=== PATIENT | female | born 1930 | race Caucasian/White ===

== ENCOUNTER 2016-10-21 05:01 | Emergency (ER) | payer MEDICARE, OTHER ==
[~2016-10-21] VITALS: Ht 154.9 cm; Wt 60.0 kg
[~2016-10-21 05:01] MED LIST: ATEN-104 PO; BUME0.5T PO; CERTTAB6 PO; CIPR250T2 PO; CLIN150 PO; GEMF600T PO; LEVO50TA4 PO; LORTA5 PO; OMEP20TA39 PO; POTA-243 PO; SUCR1TAB PO; VITA100017 PO; VITA20002 PO
[2016-10-21 05:07] VITALS: BP 141/67; PULSE 70; RESP 18; TEMP 97.7; O2SAT 96
--- NOTE | 2016-10-21 05:19 | PD ---
HPI Chief Complaint: Fall Time Seen by Provider: 05:09 Travel History International Travel<30 days: No Contact w/Intl Traveler<30days: No Traveled to known affect area: No History of Present Illness HPI The patient was seen and examined in the presence of the nurse. This patient complains of right hip pain. Patient had a fall at home and landed on her right hip. She was not able to get up. Paramedics brought her in. She did not strike her head. He has no head or neck pain. Duration 1 hour. Symptoms severity is moderate. Leg pain is worse with movement. PFSH Past Medical History Arthritis: Yes Cancer: No Cardiovascular Problems: Yes (hx of htn) High Cholesterol: Yes Congestive Heart Failure: Yes Dementia: Yes Diminished Hearing: Yes Endocrine: Yes GERD: Yes Genitourinary: No Hypertension: Yes Immune Disorder: No Kidney Stones: Yes Musculoskeletal: Yes Neurologic: Yes (DEMENTIA) Psychiatric: No Reproductive: No Respiratory: No Thyroid Disease: Yes Ulcer: Yes ?: Not Menopausal: Yes Past Surgical History Other Surgery: Yes (right arm surgery) Social History Alcohol Use: Yes (occas. wine) Tobacco Use: No Substance Use: No Allergies-Medications (Allergen,Severity, Reaction): Coded Allergies: Exelon (Verified Allergy, Severe, stomach ulcers, 01/13/16) HMG-CoA Reductase Inhibitors (Verified Allergy, Intermediate, muscle pain , 01/13/16) Aspirin (Verified Adverse Reaction, Severe, bleeding ulcers, 01/13/16) Reported Meds & Prescriptions Reported Meds & Active Scripts Active Reported Certavite Senior/Antioxid (Multiple Vitamins W/ Minerals) 1 Tab Tab Omeprazole 40 Mg Cap 40 Mg PO DAILY Vitamin D3 (Cholecalciferol) 2,000 Unit Chew 2,000 Units CHEW DAILY Gemfibrozil 600 Mg Tab 600 Mg PO BIDAC Take 30 minutes prior to breakfast and dinner. Potassium Chloride ER (Potassium Chloride) 8 Meq Cap 8 Meq PO BID Effexor (Venlafaxine HCl) 37.5 Mg Tab 37.5 Mg PO Q12H Atenolol 100 Mg Tab 100 Mg PO DAILY Acetaminophen 325 Mg Tab 325 Mg PO Q4-6H PRN Tums E-X 750 (Calcium Carbonate (Antacid)) 750 Mg Chew 750 Mg CHEW PRN Tums (Calcium Carbonate (Antacid)) 500 Mg Chew 500 Mg CHEW PRN Levothyroxine (Levothyroxine Sodium) 75 Mcg Tab 75 Mcg PO DAILY Robitussin Cough & Cold D (Phenylephrine-Diphenhydramine-) 1 Mis Mis Bumex (Bumetanide) 2 Mg Tab 2 Mg PO BID Spironolactone 25 Mg Tab 2.5 Mg PO DAILY Lasix (Furosemide) 20 Mg Tab 20 Mg PO DAILY Review of Systems General / Constitutional: No: Fever Eyes: No: Visual changes HENT: No: Headaches Cardiovascular: No: Chest Pain or Discomfort Respiratory: No: Shortness of Breath Gastrointestinal: No: Abdominal Pain Genitourinary: No: Dysuria Musculoskeletal: Positive: Arthralgias, Limited ROM, Pain Skin: No Rash Neurologic: No: Weakness Psychiatric: No: Depression Endocrine: No: Polydipsia Hematologic/Lymphatic: No: Easy Bruising Physical Exam Narrative GENERAL: Well-nourished, well-developed patient in no apparent distress. SKIN: Focused skin assessment reveals no rash and nodules. Skin is Warm and dry. HEAD: Atraumatic. Normocephalic. EYES: Pupils equal and round. No scleral icterus. No injection or drainage. ENT: No nasal bleeding or discharge. Mucous membranes pink and moist. NECK: Trachea midline. No JVD. CARDIOVASCULAR: Regular rate and rhythm. No murmur appreciated. RESPIRATORY: No accessory muscle use. Clear to auscultation. Breath sounds equal bilaterally. GASTROINTESTINAL: Abdomen soft, non-tender, nondistended. Hepatic and splenic margins not palpable. MUSCULOSKELETAL: No obvious deformities. No clubbing. No cyanosis. No edema. Has pain with palpation of the right femur or movement of the right leg NEUROLOGICAL: Awake and alert. No obvious cranial nerve deficits. Motor grossly within normal limits. Normal speech. PSYCHIATRIC: Appropriate mood and affect; insight and judgment normal. Data Data Last Documented VS Vital Signs Date Time Temp Pulse Resp B/P Pulse Ox O2 Delivery O2 Flow Rate FiO2 10/21/16 05:07 97.7 70 18 141/67 96 Orders Chest, Single Ap (10/21/16 ) Pelvis, Ap Only (Routine) (10/21/16 ) Femur (Ap & Lat/2vws) (10/21/16 ) Iv Access Insert/Monitor (10/21/16 05:16) Complete Blood Count With Diff (10/21/16 05:16) Basic Metabolic Panel (Bmp) (10/21/16 05:16) Prothrombin Time / Inr (Pt) (10/21/16 05:16) Act Partial Throm Time (Ptt) (10/21/16 05:16) Labs Laboratory Tests Test 10/21/16 05:45 White Blood Count 32.1 TH/MM3 Red Blood Count 4.80 MIL/MM3 Hemoglobin 12.7 GM/DL Hematocrit 38.4 % Mean Corpuscular Volume 80.0 FL Mean Corpuscular Hemoglobin 26.4 PG Mean Corpuscular Hemoglobin 33.0 % Concent Red Cell Distribution Width 16.6 % Platelet Count 335 TH/MM3 Mean Platelet Volume 9.1 FL Neutrophils (%) (Auto) 30.3 % Lymphocytes (%) (Auto) 64.8 % Monocytes (%) (Auto) 3.7 % Eosinophils (%) (Auto) 0.9 % Basophils (%) (Auto) 0.3 % Neutrophils # (Auto) 9.7 TH/MM3 Lymphocytes # (Auto) 20.8 TH/MM3 Monocytes # (Auto) 1.2 TH/MM3 Eosinophils # (Auto) 0.3 TH/MM3 Basophils # (Auto) 0.1 TH/MM3 CBC Comment AUTO DIFF Prothrombin Time 12.0 SEC Prothromb Time International 1.1 RATIO Ratio Activated Partial 21.4 SEC Thromboplast Time MDM Medical Decision Making Medical Screen Exam Complete: Yes Emergency Medical Condition: Yes Medical Record Reviewed: Yes Differential Diagnosis Hip fracture, pelvis fracture, contusion Narrative Course I have reviewed the patient's electronic medical record. The last 6 lab draws have shown leukocytosis. Etiology of this is not entirely clear. She has normal vital signs. She is afebrile. She does have rheumatoid arthritis and possibly on steroids causing leukocytosis. She does not look septic or toxic. She has no other complaints than hip pain after falling on it. I evaluated the hip itself and there is no sign of infection there. No redness or warmth etc. IV placed CBC shows prominent leukocytosis Metabolic profile will be reviewed prior to discharge Coagulation studies are normal I reviewed her pelvis x-ray is negative for fracture I Reviewed her chest x-ray shows cardiomegaly without acute findings I reviewed her right femur x-ray which shows no fracture [facility] with [facility] physician. She had some mobilization here to bear weight. Diagnosis Primary Impression: Contusion of hip, right Additional Instructions: Follow-up with [facility] Med/Other Pt SpecificInfo: Other Disposition: 03 DISCHARGE TO SNF Condition: Stable Damian Ugalde MD Oct 21, 2016 05:19
[2016-10-21] MEDS ORDERED: VENL37.5 PO (05:21)
[2016-10-21] MEDS ORDERED: LEVO75TA3 PO (05:21)
[2016-10-21] MEDS ORDERED: OMEP40CA2 PO (05:21)
[2016-10-21] MEDS ORDERED: GEMF600T PO (05:21)
[2016-10-21] MEDS ORDERED: ACET325T PO (05:21)
[2016-10-21] MEDS ORDERED: ATEN100T PO (05:21)
[2016-10-21] MEDS ORDERED: CALC750C21 CHEW (05:21)
[2016-10-21] MEDS ORDERED: FURO1TAB62 PO (05:21)
[2016-10-21] MEDS ORDERED: CHOL1CHW5 CHEW (05:21)
[2016-10-21] MEDS ORDERED: CERTTAB6 PO (05:21)
[2016-10-21] MEDS ORDERED: POTA8CAP PO (05:21)
[2016-10-21] MEDS ORDERED: ROBIMIS (05:21)
[2016-10-21] MEDS ORDERED: SPIR25TA PO (05:21)
[2016-10-21] MEDS ORDERED: BUME1TAB28 PO (05:21)
[2016-10-21] MEDS ORDERED: TUMS500C CHEW (05:21)
[2016-10-21 06:14] LABS: AUTOMATED NEUTROPHIL # 9.7 TH/MM3 (1.8-7.7); BASOPHIL # 0.1 TH/MM3 (0-0.2); BASOPHIL % 0.3 % (0.0-2.0); EOSINOPHIL # 0.3 TH/MM3 (0-0.4); EOSINOPHIL % 0.9 % (0.0-4.0); HEMATOCRIT 38.4 % (35.0-46.0); LYMPH % 64.8 % (9.0-44.0); LYMPHOCYTE # 20.8 TH/MM3 (1.0-4.8); MEAN CORPUSCULAR HEMOGLOBIN 26.4 PG (27.0-34.0); MONO % 3.7 % (0.0-8.0); NEUT % 30.3 % (16.0-70.0); PLATELET COUNT 335 TH/MM3 (150-450); RED CELL DISTRIBUTION WIDTH 16.6 % (11.6-17.2); WHITE BLOOD COUNT 32.1 TH/MM3 (4.0-11.0)
[2016-10-21 06:25] LABS: APTT (PATIENT) 21.4 SEC (24.3-30.1); INTERNATIONAL NORMALIZED RATIO 1.1 RATIO
--- NOTE | 2016-10-21 06:28 | RADRPT ---
EXAM DATE/TIME: 10/21/2016 06:08 [facility] COMPARISON: No previous studies available for comparison. INDICATIONS : Fall. Right pelvic pain. MEDICAL HISTORY : None. SURGICAL HISTORY : None. ENCOUNTER: Initial ACUITY: 1 day PAIN SCORE: 7/10 LOCATION: Right pelvis FINDINGS: A single frontal view of the pelvis demonstrates no evidence of fracture. The bony pelvic ring is in tact. Bony mineralization is reduced. 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 A scol iotic and degenerative lumbar spine is partially seen. The soft tissues are intact. CONCLUSION: No acute disease. Luis Holcomb Jr., MD on October 21, 2016 at 6:26 Board Certified Radiologist. This report was verified electronically.
--- NOTE | 2016-10-21 06:30 | RADRPT ---
EXAM DATE/TIME: 10/21/2016 06:10 [facility] COMPARISON: No previous studies available for comparison. INDICATIONS : Fall. Right femur pain. MEDICAL HISTORY : None. SURGICAL HISTORY : None. ENCOUNTER: Initial ACUITY: 1 day PAIN SCORE: 7/10 LOCATION: Right lateral FINDINGS: Two view examination of the right femur demonstrates no evidence of fracture or dislocation. Bony mi neralization is reduced. 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 Atherosclerotic changes of the SFA and popliteal artery. The soft tissue structures are intact. CONCLUSION: No acute disease. Luis Holcomb Jr., MD on October 21, 2016 at 6:27 Board Certified Radiologist. This report was verified electronically.
--- NOTE | 2016-10-21 06:30 | RADRPT ---
EXAM DATE/TIME: 10/21/2016 06:08 [facility] COMPARISON: CHEST SINGLE AP, January 13, 2016, 4:17. INDICATIONS : Fall. Right side pain. MEDICAL HISTORY : None. SURGICAL HISTORY : None. ENCOUNTER: Initial ACUITY: 1 day PAIN SCORE: 5/10 LOCATION: Bilateral chest FINDINGS: A single view of the chest demonstrates the lungs to be symmetrically aerated without evidence of mas s, infiltrate or effusion. Mild cardiomegaly. Osseous structures are intact. CONCLUSION: Mild cardiomegaly. No acute abnormality. Luis Holcomb Jr., MD on October 21, 2016 at 6:28 Board Certified Radiologist. This report was verified electronically.
[2016-10-21 06:42] LABS: HEMO FLAGS AUTO DIFF
[2016-10-21 06:57] LABS: BICARBONATE 22.3 MEQ/L (21.0-32.0)
[2016-10-21 07:47] LABS: BANDS 1 % (0-6); EOSINOPHILS 1 % (0-4); MYELOCYTES 2 % (0-0); NEUTROPHIL # MANUAL DIFF 7.7 TH/MM3 (1.8-7.7); POLYS (SEG NEUTROPHILS) 21 % (16-70); SMUDGE CELLS PRESENT PRESENT; WBC DIFF SAMPLE 100
[2016-10-21 07:48] LABS: SCAN/DIFF FINAL DIFF MANUAL
[2016-10-21 07:49] LABS: PLATELET ESTIMATE SMEAR NORMAL (NORMAL); PLATELET MORPHOLOGY NORMAL (NORMAL)
== END 2016-10-21 10:11 ==
LOC: NEPE 05:01
DX: S70.01XA Contusion of right hip, initial encounter (principal); W19.XXXA Unspecified fall, initial encounter; Y92.009 Unspecified place in unspecified non-institutional (private) residence as the place of occurrence of the external cause
CPT/HCPCS: 71010; 72170; 73552; 80048; 85007; 85027; 85610; 85730; 99284

== ENCOUNTER 2016-11-30 19:50 | Emergency (ER) | payer MEDICARE ==
[~2016-11-30] VITALS: Ht 157.5 cm; Wt 98.0 kg
[~2016-11-30 19:50] MED LIST changes: +ACET325T PO; -ATEN-104 PO; +ATEN100T PO; -BUME0.5T PO; +BUME1TAB28 PO; +CALC750C21 CHEW; +CHOL1CHW5 CHEW; -CIPR250T2 PO; -CLIN150 PO; +FURO1TAB62 PO; -LEVO50TA4 PO; +LEVO75TA3 PO; -LORTA5 PO; -OMEP20TA39 PO; +OMEP40CA2 PO; -POTA-243 PO; +POTA8CAP PO; +ROBIMIS; +SPIR25TA PO; -SUCR1TAB PO; +TUMS500C CHEW; +VENL37.5 PO; -VITA100017 PO; -VITA20002 PO
[2016-11-30 19:54] VITALS: BP 130/81; PULSE 69; RESP 16; TEMP 97.6; O2SAT 94
--- NOTE | 2016-11-30 20:15 | PD ---
HPI Chief Complaint: Fall Time Seen by Provider: 20:00 Travel History International Travel<30 days: No Contact w/Intl Traveler<30days: No Traveled to known affect area: No History of Present Illness HPI 86-year-old female complains of headache, neck pain, extremity pain. Patient fell [facility] local [facility] this [facility]. No reported loss of consciousness. Patient complains of generalized headache, neck pain, extremity pain. Patient denies any chest pain or shortness of breath. Patient denies abdominal pain. Patient denies any focal weakness and numbness of extremity. Patient denies any nausea vomiting. PFSH Past Medical History Arthritis: Yes Depression: Yes Cancer: No Cardiovascular Problems: Yes (hx of htn,PVD) High Cholesterol: Yes Congestive Heart Failure: Yes Dementia: Yes Diminished Hearing: Yes Endocrine: Yes GERD: Yes Genitourinary: No Hypertension: Yes Immune Disorder: No Kidney Stones: Yes Musculoskeletal: Yes Neurologic: Yes (DEMENTIA) Psychiatric: No Reproductive: No Respiratory: No Immunizations Current: Yes Thyroid Disease: Yes Ulcer: Yes Tetanus Vaccination: > 5 Years Influenza Vaccination: Yes ?: Not Menopausal: Yes Past Surgical History Other Surgery: Yes (right arm surgery) Social History Alcohol Use: Yes (occas. wine) Tobacco Use: No Substance Use: No Allergies-Medications (Allergen,Severity, Reaction): Coded Allergies: Exelon (Verified Allergy, Severe, stomach ulcers, 11/30/16) HMG-CoA Reductase Inhibitors (Verified Allergy, Intermediate, muscle pain , 11/30/16) Aspirin (Verified Adverse Reaction, Severe, bleeding ulcers, 11/30/16) Reported Meds & Prescriptions Reported Meds & Active Scripts Active Reported Zinc Oxide (Zinc Oxide (Topical)) 20 % Oin Unknown Dose TOPICAL BID PRN Vitamin D3 (Cholecalciferol) 2,000 Unit Cap 2,000 Units PO DAILY Robitussin Peak Cold Dm 100-10 mg/5Ml (Dextromethorphan-Guaifenesin) 1 Syp Syp 5 Ml PO Q4HR PRN Potassium Chloride ER (Potassium Chloride) 10 Meq Cap 10 Meq PO BID Lasix (Furosemide) 40 Mg Tab 40 Mg PO DAILY Imodium A-D (Loperamide HCl) 2 Mg Capsule 2 Mg PO DIRECTED PRN One capsule after each loose stool. Not to exceed 8 tablets per day. Bumetanide 2 Mg Tab 2 Mg PO BID Tylenol (Acetaminophen) 325 Mg Tab 650 Mg PO Q12HR PRN Certavite Senior/Antioxid (Multiple Vitamins W/ Minerals) 1 Tab Tab 1 Tab PO DAILY Omeprazole 40 Mg Cap 40 Mg PO DAILY Gemfibrozil 600 Mg Tab 600 Mg PO BIDAC Take 30 minutes prior to breakfast and dinner. Effexor (Venlafaxine HCl) 37.5 Mg Tab 37.5 Mg PO Q12H Atenolol 100 Mg Tab 100 Mg PO DAILY Tums E-X 750 (Calcium Carbonate (Antacid)) 750 Mg Chew 750 Mg CHEW PRN Levothyroxine (Levothyroxine Sodium) 75 Mcg Tab 75 Mcg PO DAILY Spironolactone 25 Mg Tab 12.5 Mg PO DAILY Review of Systems General / Constitutional: No: Fever Eyes: No: Visual changes HENT: Positive: Headaches, Neck Pain Cardiovascular: No: Chest Pain or Discomfort Respiratory: No: Shortness of Breath Gastrointestinal: No: Abdominal Pain Genitourinary: No: Dysuria Musculoskeletal: Positive: Pain Skin: No Rash Neurologic: No: Weakness Psychiatric: No: Depression Endocrine: No: Polydipsia Hematologic/Lymphatic: No: Easy Bruising Physical Exam Narrative GENERAL: Well-nourished, well-developed patient. SKIN: Focused skin assessment warm/dry. HEAD: Normocephalic. EYES: No scleral icterus. No injection or drainage. Right pupil 3 mm left pupil 1.5 mm. NECK: Supple, trachea midline. No JVD or lymphadenopathy. Mild to moderate tenderness paraspinal areas cervical spine. No midline tenderness. CARDIOVASCULAR: Regular rate and rhythm without murmurs, gallops, or rubs. RESPIRATORY: Breath sounds equal bilaterally. No accessory muscle use. GASTROINTESTINAL: Abdomen soft, non-tender, nondistended. MUSCULOSKELETAL: No cyanosis, or edema. Patient had diffuse tenderness over the bilateral hip area thigh area leg area. Limited range of motion of bilateral hips and knees joints. BACK: Nontender without obvious deformity. No CVA tenderness. Neurologic exam: Patient awake alert oriented 3. No obvious focal neurological deficit. Data Data Last Documented VS Vital Signs Date Time Temp Pulse Resp B/P Pulse Ox O2 Delivery O2 Flow Rate FiO2 11/30/16 21:22 67 18 136/60 95 Room Air 11/30/16 19:[address] Brain W/O Iv Contrast(Rout) (11/30/16 20:06) Ct Cerv Spine W/O Contrast (11/30/16 20:06) Femur (Ap & Lat/2vws) (11/30/16 20:06) Tibia/Fibula (Ap/Lat) (11/30/16 20:06) Chest, Single Ap (11/30/16 20:06) Pelvis, Ap Only (Routine) (11/30/16 20:06) Femur (Ap & Lat/2vws) (11/30/16 20:06) Tibia/Fibula (Ap/Lat) (11/30/16 20:06) MDM Medical Decision Making Medical Screen Exam Complete: Yes Emergency Medical Condition: Yes Interpretation(s) Last Impressions Tibia/Fibula X-Ray 11/30/162005 Signed Impressions: Service Date/Time: Wednesday, November 30, 2016 20:35 - CONCLUSION: No acute disease. Luis Holcomb Jr., MD Tibia/Fibula X-Ray 11/30/162005 Signed Impressions: Service Date/Time: Wednesday, November 30, 2016 20:33 - CONCLUSION: No acute disease. Luis Holcomb Jr., MD Pelvis X-Ray 11/30/162005 Signed Impressions: Service Date/Time: Wednesday, November 30, 2016 20:24 - CONCLUSION: No acute disease. Luis Holcomb Jr., MD Head CT 11/30/162005 Signed Impressions: Service Date/Time: Wednesday, November 30, 2016 20:45 - CONCLUSION: 1. No acute intracranial abnormality. 2. Stable pituitary mass. 3. Stable calcified meningioma involving the posterior cranial fossa. Luis Holcomb Jr., MD Femur X-Ray 11/30/162005 Signed Impressions: Service Date/Time: Wednesday, November 30, 2016 20:27 - CONCLUSION: No acute disease. Luis Holcomb Jr., MD Chest X-Ray 11/30/162005 Signed Impressions: Service Date/Time: Wednesday, November 30, 2016 20:31 - CONCLUSION: Cardiomegaly. Luis Holcomb Jr., MD Cervical Spine CT 11/30/162005 Signed Impressions: Service Date/Time: Wednesday, November 30, 2016 20:47 - CONCLUSION: 1. No fracture or dislocation. 2. Advanced diffuse degenerative changes. Luis Holcomb Jr., MD Differential Diagnosis Differential diagnosis including closed head injury, intracranial hemorrhage, neck injury, extremity injury. Narrative Course 86-year-old female, complains of headache, neck pain, low extremity pain. Status post fall. Diagnosis Primary Impression: Closed head injury Qualified Code: S09.90XA - Closed head injury, initial encounter Additional Impressions: Cervical strain Qualified Code: S16.1XXA - Cervical strain, initial encounter Multiple contusions Patient Instructions: General Instructions Additional Instructions: Head trauma instructions given. Follow-up with personal physician. Return as needed. Follow-up with orthopedist if persistent problem. Med/Other Pt SpecificInfo: No Change to Meds Disposition: 01 DISCHARGE HOME Condition: Stable Ta Pinto MD Nov 30, 2016 20:15
[2016-11-30] MEDS ORDERED: POTA10CA PO (20:19)
[2016-11-30] MEDS ORDERED: TYLE325T PO (20:19)
[2016-11-30] MEDS ORDERED: VITA2000 PO (20:19)
[2016-11-30] MEDS ORDERED: ZINC20OI TOPICAL (20:19)
[2016-11-30] MEDS ORDERED: LOPE-1 PO (20:19)
[2016-11-30] MEDS ORDERED: BUME2TAB PO (20:19)
[2016-11-30] MEDS ORDERED: FURO1TAB60 PO (20:19)
[2016-11-30] MEDS ORDERED: ROBISYP8 PO (20:19)
--- NOTE | 2016-11-30 21:04 | RADRPT ---
EXAM DATE/TIME: 11/30/2016 20:45 [facility] COMPARISON: CT BRAIN W/O CONTRAST, January 15, 2016, 9:41. INDICATIONS : Trauma. Fall. RADIATION DOSE: 56.35 CTDIvol (mGy) MEDICAL HISTORY : Cardiovascular disease. Dementia. Hypertension.GERD SURGICAL HISTORY : None. ENCOUNTER: Initial ACUITY: 1 day PAIN SCALE: 9/10 LOCATION: cranial TECHNIQUE: Multiple contiguous axial images were obtained of the head. Using automated exposure control and adj ustment of the mA and/or kV according to patient size, radiation dose was kept as low as reasonably a chievable to obtain optimal diagnostic quality images. FINDINGS: No acute intracranial abnormality is observed. No hemorrhage or infarction. The suprasellar mass is a gain seen consistent with an enlarged pituitary gland. This is stable. A calcified mass is seen invol ving the tentorium consistent with a meningioma. No mass effect. The calvarium is intact. Hyperostosi s frontalis interna noted. CONCLUSION: 1. No acute intracranial abnormality. 2. Stable pituitary mass. 3. Stable calcified meningioma involving the posterior cranial fossa. Luis Holcomb Jr., MD on November 30, 2016 at 21:00 Board Certified Radiologist. This report was verified electronically.
--- NOTE | 2016-11-30 21:08 | RADRPT ---
EXAM DATE/TIME: 11/30/2016 20:47 [facility] COMPARISON: CT CERVICAL SPINE W/O CONTRAST, January 13, 2016, 2:00. INDICATIONS : Trauma. Fall. RADIATION DOSE: 33.94 CTDIvol (mGy) MEDICAL HISTORY : Cardiovascular disease. Dementia. Hypertension.GERD SURGICAL HISTORY : None. ENCOUNTER: Initial ACUITY: 1 day PAIN SCALE: 9/10 LOCATION: neck TECHNIQUE: Volumetric scanning of the cervical spine was performed. Multiplanar reconstructions in the sagittal, coronal and oblique axial planes were performed. Using automated exposure control and adjustment o f the mA and/or kV according to patient size, radiation dose was kept as low as reasonably achievable to obtain optimal diagnostic quality images. FINDINGS: VERTEBRAE: Normal vertebral body height. ALIGNMENT: There is a curvature with concavity towards the patient's right which is stable from the prior study. Loss of the natural lordosis. Grade 1 anterolisthesis of C6 on C7 and C7 on T1. This is all stable. C2-C3: Disc space narrowing. No disc bulge or protrusion. Central canal is patent. Neural foramina are paten t. C3-C4: There is disc space narrowing with disc osteophyte complex. No central canal stenosis. Bilateral neur al foraminal narrowing. C4-C5: Broad-based disc osteophyte complex. Eccentric to the left. Narrowing the lateral recesses bilaterall y. Bilateral neural foraminal narrowing. C5-C6: Broad-based disc osteophyte complex. Eccentric to the left. Narrowing the lateral recesses bilaterall y. Bilateral neural foraminal narrowing. C6-C7: Broad-based disc osteophyte complex. Narrowing the lateral recesses bilaterally. Bilateral neural for aminal narrowing. C7-T1: The bony spinal canal is normal in size. No evidence of disc bulge or herniation. The neural forami na are bilaterally patent. CONCLUSION: 1. No fracture or dislocation. 2. Advanced diffuse degenerative changes. Luis Holcomb Jr., MD on November 30, 2016 at 21:03 Board Certified Radiologist. This report was verified electronically.
--- NOTE | 2016-11-30 21:10 | RADRPT ---
EXAM DATE/TIME: 11/30/2016 20:31 [facility] COMPARISON: CHEST SINGLE AP, October 21, 2016, 6:08. INDICATIONS : Chest pain post fall today MEDICAL HISTORY : None. SURGICAL HISTORY : None. ENCOUNTER: Initial ACUITY: 1 day PAIN SCORE: 10/10 LOCATION: Bilateral chest FINDINGS: A single view of the chest demonstrates the lungs to be symmetrically aerated without evidence of mas s, infiltrate or effusion. Moderate cardiomegaly. Osseous structures are intact. CONCLUSION: Cardiomegaly. Luis Holcomb Jr., MD on November 30, 2016 at 21:07 Board Certified Radiologist. This report was verified electronically.
--- NOTE | 2016-11-30 21:12 | RADRPT ---
EXAM DATE/TIME: 11/30/2016 20:24 [facility] COMPARISON: PELVIS AP ONLY, October 21, 2016, 6:08. INDICATIONS : Pelvic pain post fall today MEDICAL HISTORY : None. SURGICAL HISTORY : None. ENCOUNTER: Initial ACUITY: 1 day PAIN SCORE: 10/10 LOCATION: Pelvis FINDINGS: A single frontal view of the pelvis demonstrates no evidence of fracture. The bony pelvic ring is in tact. Bony mineralization is reduced. The soft tissues are intact. CONCLUSION: No acute disease. Luis Holcomb Jr., MD on November 30, 2016 at 21:10 Board Certified Radiologist. This report was verified electronically.
--- NOTE | 2016-11-30 21:13 | RADRPT ---
EXAM DATE/TIME: 11/30/2016 20:35 [facility] COMPARISON: No previous studies available for comparison. INDICATIONS : Right lower leg pain post fall today MEDICAL HISTORY : None. SURGICAL HISTORY : None. ENCOUNTER: Initial ACUITY: 1 day PAIN SCORE: 10/10 LOCATION: Right entire lower leg FINDINGS: 3 views of the right lower leg reveal an old fracture involving the distal tibia. No acute fractures seen. Diffuse osteopenia. Soft tissues are unremarkable. Degenerative changes involving the knee. CONCLUSION: No acute disease. Luis Holcomb Jr., MD on November 30, 2016 at 21:10 Board Certified Radiologist. This report was verified electronically.
--- NOTE | 2016-11-30 21:14 | RADRPT ---
EXAM DATE/TIME: 11/30/2016 20:27 [facility] COMPARISON: FEMUR RIGHT (AP & LAT/2VWS), October 21, 2016, 6:10. INDICATIONS : Right femur pain post fall today MEDICAL HISTORY : None. SURGICAL HISTORY : None. ENCOUNTER: Initial ACUITY: 1 day PAIN SCORE: 10/10 LOCATION: Right entire femur FINDINGS: Two view examination of the right femur demonstrates no evidence of fracture or dislocation. Bony mi neralization is reduced. Degenerative changes involve the hip and knee. Popliteal artery calcificati ons. The soft tissue structures are intact. CONCLUSION: No acute disease. Luis Holcomb Jr., MD on November 30, 2016 at 21:11 Board Certified Radiologist. This report was verified electronically.
--- NOTE | 2016-11-30 21:15 | RADRPT ---
EXAM DATE/TIME: 11/30/2016 20:33 [facility] COMPARISON: No previous studies available for comparison. INDICATIONS : Left lower leg pain post fall today MEDICAL HISTORY : None. SURGICAL HISTORY : None. ENCOUNTER: Initial ACUITY: 1 day PAIN SCORE: 10/10 LOCATION: Left entire lower leg FINDINGS: Two view examination of the left tibia demonstrates no evidence of fracture or dislocation. Bony min eralization is reduced. The soft tissue structures are intact. CONCLUSION: No acute disease. Luis Holcomb Jr., MD on November 30, 2016 at 21:12 Board Certified Radiologist. This report was verified electronically.
[2016-11-30 21:22] VITALS: BP 136/60; PULSE 67; RESP 18; O2SAT 95
--- NOTE | 2016-11-30 21:27 | RADRPT ---
EXAM DATE/TIME: 11/30/2016 20:25 [facility] COMPARISON: No previous studies available for comparison. INDICATIONS : Left femur pain post fall today MEDICAL HISTORY : None. SURGICAL HISTORY : None. ENCOUNTER: Initial ACUITY: 1 day PAIN SCORE: 10/10 LOCATION: Left entire femur FINDINGS: Two view examination of the left femur demonstrates no evidence of fracture or dislocation. Bony min eralization is normal. The soft tissue structures are intact. CONCLUSION: No acute disease. Luis Holcomb Jr., MD on November 30, 2016 at 21:25 Board Certified Radiologist. This report was verified electronically.
[2016-11-30 21:53] VITALS: BP 116/57; PULSE 65; RESP 20; O2SAT 97
== END 2016-11-30 23:42 | disposition home or self-care (01) ==
LOC: NEPE 19:50
DX: S09.90XA Unspecified injury of head, initial encounter (principal); S16.1XXA Strain of muscle, fascia and tendon at neck level, initial encounter; M79.661 Pain in right lower leg; M79.662 Pain in left lower leg; M79.651 Pain in right thigh; M79.652 Pain in left thigh; R07.9 Chest pain, unspecified; R10.2 Pelvic and perineal pain; W19.XXXA Unspecified fall, initial encounter; Y92.129 Unspecified place in nursing home as the place of occurrence of the external cause
CPT/HCPCS: 70450; 71010; 72125; 72170; 73552; 73590

== ENCOUNTER 2017-04-21 00:49 | Inpatient (IN) | payer MEDICARE ==
[2017-04-21] VITALS (8 sets, daily range): BP systolic 95–152; BP diastolic 46–69; PULSE 64–88; RESP 16–20; TEMP 97.2–98.2; O2SAT 94–100
[~2017-04-21 00:49] MED LIST changes: -ACET325T PO; -BUME1TAB28 PO; +BUME2TAB PO; -CHOL1CHW5 CHEW; +FURO1TAB60 PO; -FURO1TAB62 PO; +LOPE-1 PO; +POTA10CA PO; -POTA8CAP PO; -ROBIMIS; +ROBISYP8 PO; -TUMS500C CHEW; +TYLE325T PO; +VITA2000 PO; +ZINC20OI TOPICAL
[2017-04-21] MEDS ORDERED: SODIUM CHLORIDE 0.9% FLUSH 10 ML FLUSH IVF PRN (01:15)
--- NOTE | 2017-04-21 01:15 | PD ---
HPI Chief Complaint: Fall Time Seen by Provider: 04:02 Travel History International Travel<30 days: No Contact w/Intl Traveler<30days: No Traveled to known affect area: No History of Present Illness HPI 86-year-old female with dementia sent from [facility] after a non-witnessed fall. Nursing staff at facility reported possible head injury unknown loss of consciousness. Patient reportedly complained of headache neck pain back pain leg pain chest pain abdominal pain. Patient reportedly has chronic pain syndrome. Patient here reports that she hurts everywhere. No reported recent febrile illness. Patient with history of dementia, CAD, hypertension, peripheral vascular disease, CHF, chronic pain syndrome, Caleb/suprasellar mass, meningioma, leukocytosis, dyslipidemia, and hypothyroidism. PFSH Past Medical History Narrative Medical dementia, CAD, hypertension, peripheral vascular disease, CHF, chronic pain syndrome, Caleb/suprasellar mass, meningioma, leukocytosis, dyslipidemia, and hypothyroidism; nursing notes reviewed Arthritis: Yes Depression: Yes Cancer: No Cardiovascular Problems: Yes (hx of htn,PVD) High Cholesterol: Yes Congestive Heart Failure: Yes Dementia: Yes Diminished Hearing: Yes Endocrine: Yes GERD: Yes Genitourinary: No Hypertension: Yes Immune Disorder: No Kidney Stones: Yes Musculoskeletal: Yes Neurologic: Yes (DEMENTIA) Psychiatric: No Reproductive: No Respiratory: No Immunizations Current: Yes Thyroid Disease: Yes Ulcer: Yes Tetanus Vaccination: Unknown Influenza Vaccination: No Menopausal: Yes Past Surgical History Other Surgery: Yes (right arm surgery) Social History Alcohol Use: Yes (occas. wine) Tobacco Use: No Substance Use: No Allergies-Medications (Allergen,Severity, Reaction): Coded Allergies: rivastigmine (Unverified Allergy, Severe, stomach ulcers, 04/21/17) amlodipine (Unverified Allergy, Intermediate, muscle pain, 04/21/17) atorvastatin (Unverified Allergy, Intermediate, muscle pain, 04/21/17) pravastatin (Unverified Allergy, Intermediate, muscle pain, 04/21/17) simvastatin (Unverified Allergy, Intermediate, muscle pain, 04/21/17) aspirin (Unverified Adverse Reaction, Severe, bleeding ulcers, 04/21/17) Reported Meds & Prescriptions Reported Meds & Active Scripts Active Reported Lisinopril 2.5 Mg Tab 2.5 Mg PO DAILY Atenolol 25 Mg Tab 25 Mg PO HS Atenolol 25 Mg Tab 25 Mg PO DAILY NEB Zinc Oxide (Zinc Oxide (Topical)) 20 % Oin Unknown Dose TOPICAL BID PRN Vitamin D3 (Cholecalciferol) 2,000 Unit Cap 2,000 Units PO DAILY Robitussin Peak Cold Dm 100-10 mg/5Ml (Dextromethorphan-Guaifenesin) 1 Syp Syp 5 Ml PO Q4HR PRN Potassium Chloride ER (Potassium Chloride) 10 Meq Cap 10 Meq PO BID Lasix (Furosemide) 40 Mg Tab 40 Mg PO DAILY Imodium A-D (Loperamide HCl) 2 Mg Capsule 2 Mg PO DIRECTED PRN One capsule after each loose stool. Not to exceed 8 tablets per day. Bumetanide 2 Mg Tab 2 Mg PO BID Tylenol (Acetaminophen) 325 Mg Tab 650 Mg PO Q12HR PRN Certavite Senior/Antioxid (Multiple Vitamins W/ Minerals) 1 Tab Tab 1 Tab PO DAILY Omeprazole 40 Mg Cap 40 Mg PO DAILY Gemfibrozil 600 Mg Tab 600 Mg PO BIDAC Take 30 minutes prior to breakfast and dinner. Effexor (Venlafaxine HCl) 37.5 Mg Tab 37.5 Mg PO Q12H Tums E-X 750 (Calcium Carbonate (Antacid)) 750 Mg Chew 750 Mg CHEW PRN Levothyroxine (Levothyroxine Sodium) 75 Mcg Tab 75 Mcg PO DAILY Spironolactone 25 Mg Tab 12.5 Mg PO DAILY Review of Systems ROS Limitations: Poor Historian, Other: (medical records sent with her) Except as stated in HPI: all other systems reviewed are Neg General / Constitutional: No: Fever Cardiovascular: No: Chest Pain or Discomfort Respiratory: No: Shortness of Breath Gastrointestinal: No: Abdominal Pain Genitourinary: No: Flank Pain Musculoskeletal: Positive: Myalgias, Arthralgias, Pain (everywhere) Skin: No Rash Neurologic: No: Weakness Psychiatric: Positive: Anxiety Hematologic/Lymphatic: No: Lymph Node Enlargement Physical Exam Narrative GENERAL: Well-developed elderly female alert and awake oriented 1 which is patient's baseline SKIN: Warm and dry. HEAD: Atraumatic. Normocephalic. No scalp soft tissue swelling diffuse tenderness without bony abnormality abrasion or laceration. EYES: Pupils equal and round. No scleral icterus. No injection or drainage. ENT: No nasal bleeding or discharge. Mucous membranes pink and moist. NECK: Trachea midline. No JVD. Tenderness without bony step-off throughout. CARDIOVASCULAR: Regular rate and rhythm. Chest wall: Tenderness to palpation without ecchymosis or abrasion no bony point tenderness or crepitus RESPIRATORY: No accessory muscle use. Clear to auscultation. Breath sounds equal bilaterally. GASTROINTESTINAL: Abdomen soft, diffusely tender without guarding or rebound, nondistended. Hepatic and splenic margins not palpable. MUSCULOSKELETAL: Extremities without clubbing, cyanosis, or edema. No obvious deformities. Pelvic rock stable. Bilateral arms tender to palpation without deformity radial pulses 2+; bilateral legs painful with attempted range of motion and inability to demonstrate flexion and extension secondary to complain of pain no deformity. Patient has Unna boot wrapping. NEUROLOGICAL: Awake and alert oriented times one. No obvious cranial nerve deficits. Motor grossly within normal limits. Five out of 5 muscle strength in the arms and lower extremities difficult to evaluate as patient refuses to move her extremities secondary to complain of pain. Confusional speech. Data Data Last Documented VS Vital Signs Date Time Temp Pulse Resp B/P (MAP) Pulse Ox O2 Delivery O2 Flow Rate FiO2 04/21/17 05:30 77 16 120/64 (82) 100 Room Air 04/21/17 00:52 97.2 Orders Orders Basic Metabolic Panel (Bmp) (04/21/17:13) Complete Blood Count With Diff (04/21/17:13) Prothrombin Time / Inr (Pt) (04/21/17:13) Act Partial Throm Time (Ptt) (04/21/17:13) Type And Screen (04/21/17:13) Urinalysis - C+S If Indicated (04/21/17:13) Chest, Single Ap (04/21/17:13) Pelvis, Ap Only (Routine) (04/21/17:13) Ct Brain W/O Iv Contrast(Rout) (04/21/17:13) Ct Cerv Spine W/O Contrast (04/21/17:13) Ct Abd/Pel W Iv Contrast(Rout) (04/21/17:13) Electrocardiogram (04/21/17:13) Iv Access Insert/Monitor (04/21/17:13) Ecg Monitoring (10/22/17 01:13) Oximetry (04/21/17 01:13) Oxygen Administration (04/21/17 01:13) Sodium Chloride 0.9% Flush (Ns Flush) (04/21/17 01:15) Troponin I (04/21/17 01:13) Iodixanol 320 Inj (Rad Ct) (Visipaque 32 (04/21/17 03:07) Sodium Chlorid 0.9% 500 Ml Inj (Ns 500 M (04/21/17 04:15) Apply Cervical Collar (04/21/17 04:04) Admit Order (Ed Use Only) (04/21/17 ) Vital Signs (Adult) Q4H (04/21/17 05:42) Activity Bed Rest (04/21/17 05:42) Notify Dr: Other (04/21/17 05:42) Labs Laboratory Tests Test 04/21/17 01:20 04/21/17 01:40 White Blood Count 48.0 TH/MM3 Red Blood Count 4.35 MIL/MM3 Hemoglobin 12.1 GM/DL Hematocrit 36.8 % Mean Corpuscular Volume 84.7 FL Mean Corpuscular Hemoglobin 27.9 PG Mean Corpuscular Hemoglobin Concent 32.9 % Red Cell Distribution Width 14.2 % Platelet Count 394 TH/MM3 Mean Platelet Volume 9.5 FL Neutrophils (%) (Auto) 26.6 % Lymphocytes (%) (Auto) 69.6 % Monocytes (%) (Auto) 2.6 % Eosinophils (%) (Auto) 0.7 % Basophils (%) (Auto) 0.5 % Neutrophils # (Auto) 12.8 TH/MM3 Lymphocytes # (Auto) 33.4 TH/MM3 Monocytes # (Auto) 1.3 TH/MM3 Eosinophils # (Auto) 0.3 TH/MM3 Basophils # (Auto) 0.2 TH/MM3 CBC Comment AUTO DIFF Differential Total Cells Counted 100 Neutrophils % (Manual) 49 % Lymphocytes % 42 % Monocytes % 4 % Eosinophils % 3 % Basophils % 1 % Neutrophils # (Manual) 24.0 TH/MM3 Metamyelocytes 1 % Differential Comment FINAL DIFF MANUAL Smudge Cells PRESENT Platelet Estimate NORMAL Platelet Morphology Comment NORMAL Ovalocytes 1+ Prothrombin Time 10.9 SEC Prothromb Time International Ratio 1.0 RATIO Activated Partial Thromboplast Time 22.4 SEC Blood Urea Nitrogen 57 MG/DL Creatinine 1.47 MG/DL Random Glucose 101 MG/DL Calcium Level 8.9 MG/DL Sodium Level 131 MEQ/L Potassium Level 5.4 MEQ/L Chloride Level 95 MEQ/L Carbon Dioxide Level 26.4 MEQ/L Anion Gap 10 MEQ/L Estimat Glomerular Filtration Rate 34 ML/MIN Troponin I LESS THAN 0.02 NG/ML Urine Color LIGHT-YELLOW Urine Turbidity CLEAR Urine pH 6.0 Urine Specific [place] 1.008 Urine Protein NEG mg/dL Urine Glucose (UA) NEG mg/dL Urine Ketones NEG mg/dL Urine Occult Blood NEG Urine Nitrite NEG Urine Bilirubin NEG Urine Urobilinogen LESS THAN 2.0 MG/DL Urine Leukocyte Esterase TRACE Urine RBC 1 /hpf Urine WBC 2 /hpf Urine Squamous Epithelial Cells <1 /hpf Urine Mucus FEW /lpf Microscopic Urinalysis Comment CULT NOT INDICATED MDM Medical Decision Making Medical Screen Exam Complete: Yes Emergency Medical Condition: Yes Medical Record Reviewed: Yes Interpretation(s) EKG normal sinus rhythm rate 64 first-degree AV block and ventricular conduction delay of axis deviation CBC & BMP Diagram 04/21/17 01:20 Calcium Level 8.9 Last Impressions Pelvis X-Ray 04/21/17112 Signed Impressions: Service Date/Time: Friday, April 21, 2017 01:18 - CONCLUSION: 1. Osteopenia with no acute fracture or malalignment. 2. Degenerative disc change and scoliosis in the lower lumbar spine. Gustabo Hudson MD Head CT 04/21/17112 Signed Impressions: Service Date/Time: Friday, April 21, 2017 02:43 - CONCLUSION: 1. No acute hemorrhage or mass effect. 2. Stable calcified meningioma. 3. Stable sellar and suprasellar mass. Gustabo Hudson MD Chest X-Ray 04/21/17112 Signed Impressions: Service Date/Time: Friday, April 21, 2017 01:17 - CONCLUSION: No acute cardiopulmonary disease. Gustabo Hudson MD Cervical Spine CT 04/21/17112 Signed Impressions: Service Date/Time: Friday, April 21, 2017 02:43 - CONCLUSION: 1. A fracture deformity of the right side of the anterior arch of C1 is now noted which was not present on the prior study with mild distraction of 3-4 mm. The atlantoaxial relationship remains is maintained. There are degenerative changes in the atlantoaxial joint with chronic deformity of the dens which is increased. 2. Extensive degenerative disc and joint changes are noted. There are no additional fractures. 3. Stable anterior spondylolisthesis of C6 on C7 and C7 on T1. Gustabo Hudson MD Abdomen/Pelvis CT 04/21/17 0113 Signed Impressions: Service Date/Time: Friday, April 21, 2017 02:50 - CONCLUSION: 1. No evidence of acute visceral injury. 2. Retroperitoneal and periportal adenopathy of concern for lymphoma. 3. Right renal angiomyolipoma. 4. Abnormal gallbladder with higher density regions which may represent gallstones. The gallbladder appears partially contracted. Gustabo Hudson MD Vital Signs Date Time Temp Pulse Resp B/P (MAP) Pulse Ox O2 Delivery O2 Flow Rate FiO2 04/21/17 05:30 77 16 120/64 (82) 100 Room Air 04/21/17 03:00 72 18 108/53 (71) 94 Room Air 04/21/17 01:19 96 Room Air 04/21/17 00:52 97.2 64 20 152/69 (96) 98 Differential Diagnosis Minor CHI, ICH, cervical spine sprain strain fracture arrhythmia spine sprain strain fracture intra-abdominal/pelvic viscus injury UTI Narrative Course IV access obtained specimens collected and sent for resulting patient sent for imaging study EKG sinus rhythm first degree AV block left axis deviation and intraventricular conduction delay CBC is automated differential marked leukocytosis with elevated lymphocytes on review of medical records patient with chronically elevated white cell count; patient also noted to have on review of medical records similar/suprasellar mass and calcified meningioma that identifies family did not want any procedural intervention. Cervical spine CT shows C1 fracture that appeared potentially new compared to December CT this was discussed in detail with neurosurgeon who has reviewed the imaging studies and feels that this is a chronic change for recommends patient to have a cervical collar placed and can be seen as an outpatient per Dr. Barney Chronic kidney disease essentially unchanged from previous labs Patient with intractable pain unable to tolerate any movement of any of her extremities and will be nonambulatory at this time in view of neck pain and radiographic imaging findings; patient will be admitted for observation may require inpatient neurosurgical consult as well as may require nursing home placement or intermediate admission Patient's case discussed with [facility] Physician Communication Physician Communication discussed with Dr Barney; discussed with DR Mazal Diagnosis Primary Impression: Intractable pain Additional Impressions: C1 cervical fracture Qualified Codes: S12.091A - Other nondisplaced fracture of first cervical vertebra, initial encounter for closed fracture Closed head injury Qualified Codes: S09.90XA - Unspecified injury of head, initial encounter Chronic kidney disease Leukocytosis Retroperitoneal lymphadenopathy Admitting Information Admitting Physician Requests: Observation Yadira Puentes MD Apr 21, 2017 01:15
[2017-04-21] MEDS ORDERED: ATEN25TA PO ×2 (01:18)
[2017-04-21] MEDS ORDERED: LISI2.5T3 PO (01:18)
--- NOTE | 2017-04-21 01:42 | RADRPT ---
EXAM DATE/TIME: 04/21/2017 01:17 [facility] COMPARISON: CHEST SINGLE AP, November 30, 2016, 20:31. INDICATIONS : Pain after falling out of chair tonight. MEDICAL HISTORY : Hypertension. Hypercholesterolemia. Congestive heart failure. Dementia SURGICAL HISTORY : None. ENCOUNTER: Initial ACUITY: 1 day PAIN SCORE: Non-responsive. LOCATION: Bilateral chest FINDINGS: A single AP supine view of the chest was obtained again demonstrates atherosclerotic changes in the a johana with calcification and dilatation. There is mild scarring or atelectasis at the left lung base w ith no confluent infiltrates or effusions. The heart size remains at the upper limits of normal with no perihilar edema. The bony thorax remains intact. There are overlying electrocardiogram leads. CONCLUSION: No acute cardiopulmonary disease. Gustabo Hudson MD on April 21, 2017 at 1:40 Board Certified Radiologist. This report was verified electronically.
[2017-04-21 01:43] LABS: AUTOMATED NEUTROPHIL # 12.8 TH/MM3 (1.8-7.7); BASOPHIL # 0.2 TH/MM3 (0-0.2); BASOPHIL % 0.5 % (0.0-2.0); EOSINOPHIL # 0.3 TH/MM3 (0-0.4); EOSINOPHIL % 0.7 % (0.0-4.0); HEMATOCRIT 36.8 % (35.0-46.0); LYMPH % 69.6 % (9.0-44.0); LYMPHOCYTE # 33.4 TH/MM3 (1.0-4.8); MEAN CELL VOLUME 84.7 FL (80.0-100.0); MEAN CORPUSCULAR HEMOGLOBIN 27.9 PG (27.0-34.0); MEAN CORPUSCULAR HGB CONC 32.9 % (32.0-36.0); MONO % 2.6 % (0.0-8.0); NEUT % 26.6 % (16.0-70.0); PLATELET COUNT 394 TH/MM3 (150-450); RED BLOOD COUNT 4.35 MIL/MM3 (4.00-5.30); RED CELL DISTRIBUTION WIDTH 14.2 % (11.6-17.2)
--- NOTE | 2017-04-21 01:47 | RADRPT ---
EXAM DATE/TIME: 04/21/2017 01:18 [facility] COMPARISON: PELVIS AP ONLY, November 30, 2016, 20:24. INDICATIONS : Pain after falling out of chair tonight. MEDICAL HISTORY : Hypertension. Hypercholesterolemia. Congestive heart failure. Dementia SURGICAL HISTORY : None. ENCOUNTER: Initial ACUITY: 1 day PAIN SCORE: Non-responsive. LOCATION: Bilateral chest FINDINGS: A single AP view of the pelvis was obtained. There is poor bony detail due to overlapping soft tissue s. The hips are intact and there is no acute fracture or malalignment. There are degenerative disc ch anges and scoliosis in the lower lumbar spine. There is diffuse osteopenia. CONCLUSION: 1. Osteopenia with no acute fracture or malalignment. 2. Degenerative disc change and scoliosis in the lower lumbar spine. Gustabo Hudson MD on April 21, 2017 at 1:44 Board Certified Radiologist. This report was verified electronically.
[2017-04-21 01:52] LABS: APTT (PATIENT) 22.4 SEC (24.3-30.1); PROTHROMBIN TIME - PATIENT 10.9 SEC (9.8-11.6)
[2017-04-21 01:57] LABS: ANION GAP 10 MEQ/L (5-15); BICARBONATE 26.4 MEQ/L (21.0-32.0); BLOOD UREA NITROGEN 57 MG/DL (7-18); CHLORIDE 95 MEQ/L (98-107); GLOMERULAR FILTRATION RATE 34 ML/MIN (>89); POTASSIUM 5.4 MEQ/L (3.5-5.1); SODIUM (NA) 131 MEQ/L (136-145)
[2017-04-21 02:06] LABS: HEMO FLAGS AUTO DIFF
[2017-04-21 02:26] LABS: BLOOD, URINE NEG (NEG); COMMENT (UR) CULT NOT INDICATED; CULTURE IF INDICATED CULT NOT INDICATED; GLUCOSE,URINE NEG (NEG); KETONE, URINE NEG (NEG); MUCUS URINE FEW /lpf (OCC); NITRITE,URINE NEG (NEG); SQUAMOUS EPITHELIAL CELL URINE <1 /hpf (0-5); URINE COLOR LIGHT-YELLOW (YELLW/STRAW)
--- NOTE | 2017-04-21 03:03 | RADRPT ---
EXAM DATE/TIME: 04/21/2017 02:43 [facility] COMPARISON: CT BRAIN W/O CONTRAST, November 30, 2016, 20:45. INDICATIONS : Trauma, fall. History of meningioma and pituitary mass. RADIATION DOSE: 57.26 CTDIvol (mGy) MEDICAL HISTORY : Cardiovascular disease. Congestive heart failure. Gastroesophageal reflux disease.Dementia. Hypertens ion. Renal calculi. SURGICAL HISTORY : None. ENCOUNTER: Initial ACUITY: 1 day PAIN SCALE: 0/10 LOCATION: cranial TECHNIQUE: Multiple contiguous axial images were obtained of the head. Using automated exposure control and adj ustment of the mA and/or kV according to patient size, radiation dose was kept as low as reasonably a chievable to obtain optimal diagnostic quality images. DICOM format image data is available electro nically for review and comparison. FINDINGS: CEREBRUM: The ventricles are normal for age. No evidence of midline shift,or acute infarction. No extra-axial fluid collections are seen. There is a stable calcified meningioma again noted along the central cer ebellum. There is a stable sellar and suprasellar mass. POSTERIOR FOSSA: The cerebellum and brainstem are intact. The 4th ventricle is midline. The cerebellopontine angle i s unremarkable. EXTRACRANIAL: The visualized portion of the orbits is intact. SKULL: The calvaria is intact. No evidence of skull fracture. There is hyperostosis frontalis interna. CONCLUSION: 1. No acute hemorrhage or mass effect. 2. Stable calcified meningioma. 3. Stable sellar and suprasellar mass. Gustabo Hudson MD on April 21, 2017 at 2:59 Board Certified Radiologist. This report was verified electronically.
[2017-04-21] MEDS ORDERED: IODIXANOL 320 MG/ML 10 ML VIAL (for Rad CT) IVCONTRAST ONE (03:07)
--- NOTE | 2017-04-21 03:18 | RADRPT ---
EXAM DATE/TIME: 04/21/2017 02:43 [facility] COMPARISON: CT CERVICAL SPINE W/O CONTRAST, November 30, 2016, 20:47. INDICATIONS : Trauma, fall. RADIATION DOSE: 21.28 CTDIvol (mGy) MEDICAL HISTORY : Cardiovascular disease. Congestive heart failure. Gastroesophageal reflux disea se.Hypertension. Renal calculi. Dementia. SURGICAL HISTORY : None. ENCOUNTER: Initial ACUITY: 1 day PAIN SCALE: 1/10 LOCATION: neck TECHNIQUE: Volumetric scanning of the cervical spine was performed. Multiplanar reconstructions i n the sagittal, coronal and oblique axial planes were performed. Using automated exposure control a nd adjustment of the mA and/or kV according to patient size, radiation dose was kept as low as reason ably achievable to obtain optimal diagnostic quality images. DICOM format image data is available e lectronically for review and comparison. FINDINGS: The sagittal reconstructions demonstrate an interval fracture involving the right anterior arch of C1 . The fracture fragments are mildly distracted. Diffuse degenerative disc changes are again noted wit h disc space narrowing and hypertrophic change. Scoliosis is again noted. Grade 1 anterior spondyloli sthesis of C6 on C7-C7 and T1 are again noted without change. There is diffuse osteopenia. There are normal prevertebral soft tissues. The dens is intact and there is a normal atlantoaxial relationship. The axial images demonstrate interval fracture involving the right side of the C1 anterior arch which is indistinct. There is a small gap of approximately 3-4 mm. The left side of the arch and posterior aspect of the arch are intact. There is increased deformity of the dens which remains in normal rela tionship with the C1 arch. The soft tissues are within normal limits. There is no evidence of acute f racture or malalignment. CONCLUSION: 1. A fracture deformity of the right side of the anterior arch of C1 is now noted which was not prese nt on the prior study with mild distraction of 3-4 mm. The atlantoaxial relationship remains is maint ained. There are degenerative changes in the atlantoaxial joint with chronic deformity of the dens wh ich is increased. 2. Extensive degenerative disc and joint changes are noted. There are no additional fractures. 3. Stable anterior spondylolisthesis of C6 on C7 and C7 on T1. Gustabo Hudson MD on April 21, 2017 at 3:06 Board Certified Radiologist. This report was verified electronically.
--- NOTE | 2017-04-21 03:24 | RADRPT ---
EXAM DATE/TIME: 04/21/2017 02:50 [facility] COMPARISON: No previous studies available for comparison. INDICATIONS : Trauma, fall. IV CONTRAST: 46 cc Visipaque (iodixanol) IV ORAL CONTRAST: No oral contrast ingested. RADIATION DOSE: 16.16 CTDIvol (mGy) MEDICAL HISTORY : Cardiovascular disease. Gastroesophageal reflux disease. Congestive heart failure.Hypertension. Renal calculi. Dementia. SURGICAL HISTORY : None. ENCOUNTER: Initial ACUITY: 1 day PAIN SCALE: 6/10 LOCATION: Bilateral abdomen TECHNIQUE: Volumetric scanning of the abdomen and pelvis was performed. Using automated exposure control and ad justment of the mA and/or kV according to patient size, radiation dose was kept as low as reasonably achievable to obtain optimal diagnostic quality images. DICOM format image data is available electro nically for review and comparison. FINDINGS: LOWER LUNGS: The visualized lower lungs are clear. LIVER: Homogeneous density without lesion. There is no dilation of the biliary tree. The gallbladder is ab normal in appearance and appears partially contracted with areas of higher density which likely repre sent gallstones. There is mild hepatic steatosis. SPLEEN: Normal size without lesion. PANCREAS: Within normal limits. KIDNEYS: Normal in size and shape. There is no mass, stone or hydronephrosis. ADRENAL GLANDS: Within normal limits. VASCULAR: There is no aortic aneurysm. BOWEL/MESENTERY: The stomach, small bowel, and colon demonstrate no acute abnormality. There is no free intraperitone al air or fluid. ABDOMINAL WALL: Within normal limits. RETROPERITONEUM: Mild to moderate retroperitoneal adenopathy noted with multiple lymph nodes. These measure up to appr oximately 3.9 x 1.7 cm in greatest diameter. Periportal adenopathy is noted with multiple lymph nodes as well. BLADDER: No wall thickening or mass. REPRODUCTIVE: There calcified leiomyoma in the uterus. INGUINAL: There is no evidence of a hernia. There are multiple bilateral reactive appearing inguinal lymph node s. MUSCULOSKELETAL: Scoliosis and degenerative disc changes are present. CONCLUSION: 1. No evidence of acute visceral injury. 2. Retroperitoneal and periportal adenopathy of concern for lymphoma. 3. Right renal angiomyolipoma. 4. Abnormal gallbladder with higher density regions which may represent gallstones. The gallbladder a ppears partially contracted. Gustabo Hudson MD on April 21, 2017 at 3:17 Board Certified Radiologist. This report was verified electronically.
[2017-04-21 03:28] LABS: BASOPHILS 1 % (0-2); EOSINOPHILS 3 % (0-4); METAMYELOCYTES 1 % (0-1); POLYS (SEG NEUTROPHILS) 49 % (16-70); WBC DIFF SAMPLE 100
[2017-04-21 03:29] LABS: OVALOCYTES 1+ (NORMAL); PLATELET ESTIMATE SMEAR NORMAL (NORMAL); PLATELET MORPHOLOGY NORMAL (NORMAL); SCAN/DIFF FINAL DIFF MANUAL; SMUDGE CELLS PRESENT PRESENT
[2017-04-21] MEDS ORDERED: SODIUM CHLORID 0.9% 500 ML INJ 500 ML IV ONE (04:15)
[2017-04-21] MEDS ORDERED: LACTULOSE SYRUP 20 GM/30 ML CUP PO PRN (06:00)
[2017-04-21] MEDS ORDERED: ONDANSETRON HCL 4 MG/2 ML VIAL IVP PRN (06:00)
[2017-04-21] MEDS ORDERED: MAGNESIUM HYDROXIDE SUSP 30 ML CUP PO PRN (06:00)
[2017-04-21] MEDS ORDERED: BISACODYL 10 MG SUPP RECTAL PRN (06:00)
[2017-04-21] MEDS ORDERED: ACETAMINOPHEN 325 MG TAB PO PRN (06:00)
[2017-04-21] MEDS ORDERED: MORPHINE SULFATE 4 MG/ML INJ IV PUSH PRN (06:00)
[2017-04-21] MEDS ORDERED: SENNOSIDES 8.6 MG TAB PO PRN (06:00)
[2017-04-21] MEDS ORDERED: SODIUM CHLORIDE 0.9% FLUSH 10 ML FLUSH IV FLUSH PRN (06:00)
[2017-04-21] MEDS ORDERED: MORPHINE SULFATE 2 MG/ML INJ IV PRN (06:15)
--- NOTE | 2017-04-21 06:15 | HHI.HP ---
HPI Service [facility] Primary [facility] Physician Non-Staff Admission Diagnosis intractable pain; C 1 fracture-old; chronic leukocytosis Diagnoses: (1) Fall Diagnosis: Principal (2) C1 cervical fracture Diagnosis: Principal (3) Intractable pain Diagnosis: Principal (4) Hyperkalemia Diagnosis: Principal (5) Renal insufficiency Diagnosis: Principal (6) Leukocytosis Diagnosis: Principal Travel History International Travel<30 Days: No Contact w/Intl Traveler <30 Da: No Traveled to Known Affected Are: No History of Present Illness This is an 86-year-old female with a PMH of HTN, Hyperlipidemia, Dementia, CHF ( Unknown EF), Hypothyroidism and Recurrent Falls was sent to the ER from [facility] secondary to witnessed fall. Pt unable to provide much history, AA&O x1 at baseline. On arrival, BP 152/69, HR 64, O2 sat 98% on RA, Afebrile. K+ 5.4. Creatinine 1.47, previously 1.72 on 10/21/16. Trop negative. INR 1.0. UA negative. CXR with no acute findings. CT Head with no acute findings, stable calcified meningioma and suprasellar mass. CT C-spine with C1 fracture, mild distraction of 3-[address] Barney consulted by ER physician, findings thought to be more chronic in nature, recommendation for C-Collar and outpatient follow up. CT Abd/Pelvis w/ retroperitoneal and periportal adenopathy of concern for lymphoma. Per report, family does not wish to pursue aggressive intervention. While in ER, pt w/ significant pain complaints, unable to ambulate, unsafe d/c home. Review of Systems Except as stated in HPI: all other systems reviewed are Neg ROS: 14 point review of systems otherwise negative. Past Family Social History Past Medical History PMH: HTN, Hyperlipidemia, Dementia, CHF (Unknown EF), Hypothyroidism and Recurrent Falls Past Surgical History PAST SURGICAL HISTORY: Right Arm Surgery Allergies: Coded Allergies: rivastigmine (Unverified Allergy, Severe, stomach ulcers, 04/21/17) amlodipine (Unverified Allergy, Intermediate, muscle pain, 04/21/17) atorvastatin (Unverified Allergy, Intermediate, muscle pain, 04/21/17) pravastatin (Unverified Allergy, Intermediate, muscle pain, 04/21/17) simvastatin (Unverified Allergy, Intermediate, muscle pain, 04/21/17) aspirin (Unverified Adverse Reaction, Severe, bleeding ulcers, 04/21/17) Family History PAST FAMILY HISTORY: Reviewed. No h/o DM or CAD Social History PAST SOCIAL HISTORY: Negative for cough, tobacco or drugs. Physical Exam Vital Signs Vital Signs Date Time Temp Pulse Resp B/P (MAP) Pulse Ox O2 Delivery O2 Flow Rate FiO2 04/21/17 05:30 77 16 120/64 (82) 100 Room Air 04/21/17 03:00 72 18 108/53 (71) 94 Room Air 04/21/17 01:19 96 Room Air 04/21/17 00:52 97.2 64 20 152/69 (96) 98 Physical Exam PE: GENERAL: Elderly female in no acute distress. C-collar in place HEENT: PERRLA, EOMI. No scleral icterus or conjunctival pallor. No lid lag or facial droop. CARDIOVASCULAR: Regular rate and rhythm. No obvious murmurs to auscultation. No chest tenderness to palpation. RESPIRATORY: No obvious rhonchi or wheezing. Clear to auscultation. Breath sounds equal bilaterally. GASTROINTESTINAL: Abdomen soft, non-tender, nondistended. BS normal. MUSCULOSKELETAL: Extremities without clubbing, cyanosis, or edema. No obvious deformities. NEUROLOGICAL: Awake, alert and oriented to person. No focal neurologic deficits. Moving both upper and lower extremities spontaneously. Laboratory Laboratory Tests Test 04/21/17 01:20 04/21/17 01:40 White Blood Count 48.0 Red Blood Count 4.35 Hemoglobin 12.1 Hematocrit 36.8 Mean Corpuscular Volume 84.7 Mean Corpuscular Hemoglobin 27.9 Mean Corpuscular Hemoglobin Concent 32.9 Red Cell Distribution Width 14.2 Platelet Count 394 Mean Platelet Volume 9.5 Neutrophils (%) (Auto) 26.6 Lymphocytes (%) (Auto) 69.6 Monocytes (%) (Auto) 2.6 Eosinophils (%) (Auto) 0.7 Basophils (%) (Auto) 0.5 Neutrophils # (Auto) 12.8 Lymphocytes # (Auto) 33.4 Monocytes # (Auto) 1.3 Eosinophils # (Auto) 0.3 Basophils # (Auto) 0.2 CBC Comment AUTO DIFF Differential Total Cells Counted 100 Neutrophils % (Manual) 49 Lymphocytes % 42 Monocytes % 4 Eosinophils % 3 Basophils % 1 Neutrophils # (Manual) 24.0 Metamyelocytes 1 Differential Comment FINAL DIFF MANUAL Smudge Cells PRESENT Platelet Estimate NORMAL Platelet Morphology Comment NORMAL Ovalocytes 1+ Prothrombin Time 10.9 Prothromb Time International Ratio 1.0 Activated Partial Thromboplast Time 22.4 Blood Urea Nitrogen 57 Creatinine 1.47 Random Glucose 101 Calcium Level 8.9 Sodium Level 131 Potassium Level 5.4 Chloride Level 95 Carbon Dioxide Level 26.4 Anion Gap 10 Estimat Glomerular Filtration Rate 34 Troponin I LESS THAN 0.02 Urine Color LIGHT-YELLOW Urine Turbidity CLEAR Urine pH 6.0 Urine Specific [place] 1.008 Urine Protein NEG Urine Glucose (UA) NEG Urine Ketones NEG Urine Occult Blood NEG Urine Nitrite NEG Urine Bilirubin NEG Urine Urobilinogen LESS THAN 2.0 Urine Leukocyte Esterase TRACE Urine RBC 1 Urine WBC 2 Urine Squamous Epithelial Cells <1 Urine Mucus FEW Microscopic Urinalysis Comment CULT NOT INDICATED Result Diagram: 04/21/1711904/21/17119 Caprini VTE Risk Assessment Caprini VTE Risk Assessment: No/Low Risk (score <= 1) Caprini Risk Assessment Model Point Value = 1 Point Value = 2 Point Value = 3 Point Value = 5 Age 41-60 Minor surgery BMI > 25 kg/m2 Swollen legs Varicose veins or History of unexplained or recurrent spontaneous Oral contraceptives or hormone replacement Sepsis (< 1 month) Serious lung disease, including pneumonia (< 1 month) Abnormal pulmonary function Acute myocardial infarction Congestive heart failure (< 1 month) History of inflammatory bowel disease Medical patient at bed rest Age 61-74 Arthroscopic surgery Major open surgery (> 45 min) Laparoscopic surgery (> 45 min) Malignancy Confined to bed (> 72 hours) Immobilizing plaster cast Central venous access Age >= 75 History of VTE Family history of VTE Factor V Leiden Prothrombin [id number] Lupus anticoagulant Anticardiolipin antibodies Elevated serum homocysteine Heparin-induced thrombocytopenia Other congenital or acquired thrombophilia Stroke (< 1 month) Elective arthroplasty Hip, pelvis, or leg fracture Acute spinal cord injury (< 1 month) Prophylaxis Regimen Total Risk Factor Score Risk Level Prophylaxis Regimen 0-1 Low Early ambulation 2 Moderate Order ONE of the following: *Sequential Compression Device (SCD) *Heparin 5000 units SQ BID 3-4 Higher Order ONE of the following medications: *Heparin 5000 units SQ TID *Enoxaparin/Lovenox 40 mg SQ daily (WT < 150 kg, CrCl > 30 mL/min) *Enoxaparin/Lovenox 30 mg SQ daily (WT < 150 kg, CrCl > 10-29 mL/min) *Enoxaparin/Lovenox 30 mg SQ BID (WT < 150 kg, CrCl > 30 mL/min) AND/OR *Sequential Compression Device (SCD) 5 or more Highest Order ONE of the following medications: *Heparin 5000 units SQ TID (Preferred with Epidurals) *Enoxaparin/Lovenox 40 mg SQ daily (WT < 150 kg, CrCl > 30 mL/min) *Enoxaparin/Lovenox 30 mg SQ daily (WT < 150 kg, CrCl > 10-29 mL/min) *Enoxaparin/Lovenox 30 mg SQ BID (WT < 150 kg, CrCl > 30 mL/min) AND *Sequential Compression Device (SCD) Assessment and Plan Problem List: (1) Fall ICD Code: W19.XXXA - Unspecified fall, initial encounter (2) Intractable pain ICD Code: R52 - Pain, unspecified (3) C1 cervical fracture ICD Code: S12.000A - Unspecified displaced fracture of first cervical vertebra , initial encounter for closed fracture (4) Renal insufficiency ICD Code: N28.9 - Disorder of kidney and ureter, unspecified (5) Leukocytosis ICD Code: D72.829 - Elevated white blood cell count, unspecified (6) Hyperkalemia ICD Code: E87.5 - Hyperkalemia Assessment and Plan A/P: 1. Fall: witnessed fall while at [facility], CT Head w/ no acute findings, CXR negative, images reviewed by me. 2. C1 Fx: CT C-Spine w/ C1 fracture, images reviewed by me, Dr. Barney consulted by ER physician, recommended C-Collar w/ outpatient follow up. C- collar in place. Analgesics/antiemetics as needed. 3. Intractable Pain: secondary to above, unable to ambulate independently, unsafe d/c home as pt lives in [facility]. Analgesics/antiemetics as needed. PT for eval/tx. 4. Renal Insufficiency: Chronic. Creatinine 1.47, previously 1.72 on . U/a negative. IVF for hydration, caution w/ h/o CHF. Repeat labs in am. 5. Leukocytosis: Chronic. WBC 48, previously 32 on 10/21/16. CT Abd/Pelvis w / adenopathy suggestive of lymphoma, images reviewed by me. Per report, family does not wish to proceed w/ aggressive intervention. Monitor as outpatient. 6. Hyperkalemia: K+ 5.4, noted to have hemolysis. Will repeat labs in am. 7. DVT Prophylaxis: SCD/Teds. 8. Social work for d/c planning as needed, may need assistance w/ placement as currently in [facility]. 9. Case discussed w/ ER physician at length. Karrie Vega MD Apr 21, 2017 06:15
[2017-04-21] MEDS: SODIUM CHLOR 0.9% 1000 ML INJ 1,000 ML IV SCH ×2 (07:00→18:44)
[2017-04-21] MEDS: GEMFIBROZIL 600 MG TAB PO SCH ×2 (08:16→15:43)
[2017-04-21] MEDS: LEVOTHYROXINE SODIUM 75 MCG TAB PO SCH (08:16)
[2017-04-21] MEDS: ACETAMINOPHEN/HYDROcodone 325 MG/5 MG TAB PO PRN ×2 (08:20→15:44)
--- NOTE | 2017-04-21 10:47 | HHI.PR ---
Subjective Remarks Follow up Fall. Patient is only alert to self, and screams when touched. PT was only able to work with her while in bed. Elsie collar changed to [place] for more comfort. Objective Vitals Vital Signs Date Time Temp Pulse Resp B/P (MAP) Pulse Ox O2 Delivery O2 Flow Rate FiO2 04/21/17 08:02 98.2 88 18 96/46 (63) 96 04/21/17 07:19 04/21/17 05:30 77 16 120/64 (82) 100 Room Air 04/21/17 03:00 72 18 108/53 (71) 94 Room Air 04/21/17 01:19 96 Room Air 04/21/17 00:52 97.2 64 20 152/69 (96) 98 I/O 04/20/17 04/20/17 04/20/17 04/21/17 04/21/17 04/21/17 07:00 15:00 23:00 07:00 15:00 23:00 Intake Total 1000 ml Balance 1000 ml Intake IV Total 1000 ml Result Diagram: 04/21/17 0120 04/21/17 0935 Objective Remarks GENERAL: Elderly female in no acute distress. [place] J in place HEENT: PERRLA, EOMI. No scleral icterus or conjunctival pallor. No lid lag or facial droop. CARDIOVASCULAR: Regular rate and rhythm. No obvious murmurs to auscultation. No chest tenderness to palpation. RESPIRATORY: No obvious rhonchi or wheezing. Clear to auscultation. Breath sounds equal bilaterally. GASTROINTESTINAL: Abdomen soft, non-tender, nondistended. BS normal. MUSCULOSKELETAL: Extremities without clubbing, cyanosis, or edema. No obvious deformities. NEUROLOGICAL: Awake, alert and oriented to person. No focal neurologic deficits. Moving both upper and lower extremities spontaneously. Medications and IVs Current Medications Medications (Trade) Dose Ordered Sig/Feliciano Route Start Time Stop Time Status Last Admin (NS Flush) 2 ml UNSCH PRN IVF 04/21/17 01:15 Sodium Chloride 1,000 ml @ 100 mls/hr Q10H IV 04/21/17 05:47 04/21/17 07:00 (NS Flush) 2 ml UNSCH PRN IV FLUSH 04/21/17 06:00 (NS Flush) 2 ml BID IV FLUSH 04/21/17 09:00 (Zofran Inj) 4 mg Q6H PRN IVP 04/21/17 06:00 (Tylenol) 650 mg Q6H PRN PO 04/21/17 06:00 ([place] 5-325 Mg) 1 tab Q4H PRN PO 04/21/17 06:00 04/21/17 08:20 (Abigail-Colace) 1 tab BID PO 04/21/17 09:00 (Milk Of Magnesia Liq) 30 ml Q12H PRN PO 04/21/17 06:00 (Senokot) 17.2 mg Q12H PRN PO 04/21/17 06:00 (Dulcolax Supp) 10 mg DAILY PRN RECTAL 04/21/17 06:00 (Lactulose Liq) 30 ml DAILY PRN PO 04/21/17 06:00 (Bumetanide) 2 mg BID PO 04/21/17 09:00 (Lopid) 600 mg BIDAC PO 04/21/17 07:00 04/21/17 08:16 (Synthroid) 75 mcg DAILY@0600 PO 04/21/17 06:00 04/21/17 08:16 (Aldactone) 12.5 mg DAILY PO 04/21/17 09:00 (Theragran M Tab) 1 tab DAILY PO 04/21/17 09:00 (Protonix) 40 mg DAILY PO 04/21/17 09:00 (Effexor Xr) 37.5 mg DAILY PO 04/21/17 09:00 (Morphine Inj) 2 mg Q3H PRN IV 04/21/17 06:15 A/P Problem List: (1) Fall ICD Code: W19.XXXA - Unspecified fall, initial encounter (2) Intractable pain ICD Code: R52 - Pain, unspecified (3) C1 cervical fracture ICD Code: S12.000A - Unspecified displaced fracture of first cervical vertebra , initial encounter for closed fracture (4) Renal insufficiency ICD Code: N28.9 - Disorder of kidney and ureter, unspecified (5) Leukocytosis ICD Code: D72.829 - Elevated white blood cell count, unspecified (6) Hyperkalemia ICD Code: E87.5 - Hyperkalemia Assessment and Plan Fall: witnessed fall while at [facility], CT Head w/ no acute findings, CXR negative -PT eval and treat, PT recommends rehab or snf for PT -Discussed case with case management who will look into rehab or snf C1 Fx: CT C-Spine w/ C1 fracture, images reviewed by me, Dr. Barney consulted by ER physician, recommended C-Collar w/ outpatient follow up. -Changed to [place] J for comfort and residential. - Analgesics/antiemetics as needed. Intractable Pain: secondary to above, unable to ambulate independently, unsafe d/c home as pt lives in [place]. -Analgesics/antiemetics as needed. -Daily PT Renal Insufficiency: Chronic. Creatinine 1.47, previously 1.72 on 10/21/16. U/ a negative. -IVF for hydration, caution w/ h/o CHF. -Repeat labs in am. Leukocytosis: Chronic. WBC 48, previously 32 on 10/21/16. CT Abd/Pelvis w/ adenopathy suggestive of lymphoma, images reviewed by me. Per report, family does not wish to proceed w/ aggressive intervention. Monitor as outpatient. Hyperkalemia: K+ 5.4, noted to have hemolysis. Repeat lab is 4.1. -Cont to monitor, labs in am Hypotension, likely due to morphine IV -Caution with IV pain medications DVT Prophylaxis: SCD/Teds. Discharge Planning Patient is an unsafe dc to [place], will need inpatient rehab or SNF Problem Qualifiers (1) C1 cervical fracture: Qualified Codes: S12.091A - Other nondisplaced fracture of first cervical vertebra, initial encounter for closed fracture Elaina Johnson Apr 21, 2017 10:47
[2017-04-21] MEDS: DOCUSATE SODIUM 50 MG/SENNA 8.6 MG TAB PO SCH ×2 (11:48→21:00)
[2017-04-21] MEDS: PANTOPRAZOLE SOD 40 MG DELAYED RELEASE TAB PO SCH (11:48)
[2017-04-21] MEDS: MULTIVITAMINS/MINERALS THERAPEUTIC TAB PO SCH (11:48)
[2017-04-21] MEDS: VENLAFAXINE HCL XR 37.5 MG CAP PO SCH (11:49)
[2017-04-21] MEDS: SODIUM CHLORIDE 0.9% FLUSH 10 ML FLUSH IV FLUSH SCH ×2 (11:50→21:00)
[2017-04-21] MEDS: SPIRONOLACTONE 25 MG TAB PO SCH (12:44)
[2017-04-21] MEDS: BUMETANIDE 1 MG TAB PO SCH ×2 (12:44→21:00)
--- NOTE | 2017-04-21 13:18 | EKG ---
Date Performed: 04/21/2017 Time Performed: 01:07:51 PTAGE: 86 years EKG: Sinus rhythm WITH FIRST DEGREE AV BLOCK MARKED LEFT AXIS DEVIATION INTRAVENTRICULAR CONDUCTION DELAY ABNORMAL ECG PREVIOUS TRACING : 01/13/2016 04.40 Compared to prior tracing no significant change DOCTOR: Ross Watson Interpretating Date/Time 04/21/2017 13:18:07
--- NOTE | 2017-04-21 14:48 | HHI.FF ---
Face to Face Verification Diagnosis: (1) C1 cervical fracture (2) Fall Physical Therapy Order: Evaluate and Treat, Improve ambulation, Strength and gait training Home Health Nursing Order: Medical education Signs/symptoms of disease process Nursing assessment with vital signs I have seen patient Tiki Pena on 04/21/17. My clinical findings support the need for the requested home health care services because: Ltd mobility - disease progression Deconditioned w/ increased weakness Med compliance is questionable Impaired cognition/judgement High risk of falls I certify that my clinical findings support that this patient is homebound because: Unsteady gait/balance Unsafe to leave home unassisted Unable to use public transportation Elaina Johnson Apr 21, 2017 14:48
[2017-04-22] VITALS (7 sets, daily range): BP systolic 109–139; BP diastolic 53–65; PULSE 78–90; RESP 16–20; TEMP 97.8–98.7; O2SAT 93–98
[2017-04-22] MEDS: SODIUM CHLOR 0.9% 1000 ML INJ 1,000 ML IV SCH ×3 (01:47→21:30)
[2017-04-22 04:51] LABS: AUTOMATED NEUTROPHIL # 9.7 TH/MM3 (1.8-7.7); BASOPHIL % 0.1 % (0.0-2.0); EOSINOPHIL # 0.2 TH/MM3 (0-0.4); EOSINOPHIL % 0.5 % (0.0-4.0); LYMPH % 68.3 % (9.0-44.0); LYMPHOCYTE # 23.6 TH/MM3 (1.0-4.8); MEAN CELL VOLUME 84.9 FL (80.0-100.0); MEAN CORPUSCULAR HEMOGLOBIN 27.6 PG (27.0-34.0); MEAN CORPUSCULAR HGB CONC 32.5 % (32.0-36.0); MONO % 3.1 % (0.0-8.0); PLATELET COUNT 324 TH/MM3 (150-450); RED BLOOD COUNT 3.89 MIL/MM3 (4.00-5.30); RED CELL DISTRIBUTION WIDTH 13.9 % (11.6-17.2); WHITE BLOOD COUNT 34.6 TH/MM3 (4.0-11.0)
[2017-04-22 04:58] LABS: HEMO FLAGS AUTO DIFF
[2017-04-22 05:26] LABS: ANION GAP 12 MEQ/L (5-15); AST (GOT) 19 U/L (15-37); BICARBONATE 23.4 MEQ/L (21.0-32.0); BLOOD UREA NITROGEN 36 MG/DL (7-18); CHLORIDE 103 MEQ/L (98-107); GLOMERULAR FILTRATION RATE 61 ML/MIN (>89); POTASSIUM 3.6 MEQ/L (3.5-5.1); SODIUM (NA) 138 MEQ/L (136-145)
[2017-04-22 05:27] LABS: ALT (GPT) 11 U/L (10-53)
[2017-04-22 05:30] LABS: ALKALINE PHOSPHATASE 58 U/L (45-117); TOTAL BILIRUBIN ADULT 0.3 MG/DL (0.2-1.0)
[2017-04-22] MEDS: LEVOTHYROXINE SODIUM 75 MCG TAB PO SCH (08:08)
[2017-04-22] MEDS: GEMFIBROZIL 600 MG TAB PO SCH ×2 (08:08→15:55)
[2017-04-22] MEDS: VENLAFAXINE HCL XR 37.5 MG CAP PO SCH (08:13)
[2017-04-22] MEDS: SODIUM CHLORIDE 0.9% FLUSH 10 ML FLUSH IV FLUSH SCH ×2 (08:13→21:00)
[2017-04-22] MEDS: BUMETANIDE 1 MG TAB PO SCH ×2 (08:13→21:29)
[2017-04-22] MEDS: DOCUSATE SODIUM 50 MG/SENNA 8.6 MG TAB PO SCH ×2 (08:13→21:29)
[2017-04-22] MEDS: SPIRONOLACTONE 25 MG TAB PO SCH (08:13)
[2017-04-22] MEDS: MULTIVITAMINS/MINERALS THERAPEUTIC TAB PO SCH (08:13)
[2017-04-22] MEDS: PANTOPRAZOLE SOD 40 MG DELAYED RELEASE TAB PO SCH (08:17)
[2017-04-22 08:41] LABS: POLYS (SEG NEUTROPHILS) 23 % (16-70); WBC DIFF SAMPLE 100
[2017-04-22 08:43] LABS: ACANTHOCYTES 1+ (NORMAL); OVALOCYTES 1+ (NORMAL); PLATELET ESTIMATE SMEAR NORMAL (NORMAL); PLATELET MORPHOLOGY NORMAL (NORMAL); SCAN/DIFF FINAL DIFF MANUAL; SMUDGE CELLS PRESENT PRESENT
--- NOTE | 2017-04-22 08:57 | HHI.PR ---
Subjective Remarks Follow up for fall, dementia. The patient is awake, alert, oriented to self, hospital, but states the year is 2008. She denies any pain or weakness. Denies any fevers/chills, nausea, diarrhea, or abdominal pain. She has no medical complaints at this time. Objective Vitals Vital Signs Date Time Temp Pulse Resp B/P (MAP) Pulse Ox O2 Delivery O2 Flow Rate FiO2 04/22/17 08:41 98.7 82 16 120/58 (78) 98 04/22/17 03:35 98.4 79 18 110/55 (73) 97 04/22/17 00:27 97.8 80 18 111/55 (73) 96 04/21/17 20:43 98.1 78 18 105/54 (71) 97 04/21/17 16:03 97.9 85 20 96/49 (65) 96 04/21/17 13:08 98.2 18 95/49 (64) 96 I/O 04/21/17 04/21/17 04/21/17 04/22/17 04/22/17 04/22/17 07:00 15:00 23:00 07:00 15:00 23:00 Intake Total 1000 ml 240 ml Balance 1000 ml 240 ml Intake Oral 240 ml IV Total 1000 ml # Voids 2 Result Diagram: 04/22/17 0408 04/22/17 040 Imaging Last Impressions Pelvis X-Ray 04/21/17112 Signed Impressions: Service Date/Time: Friday, April 21, 2017 01:18 - CONCLUSION: 1. Osteopenia with no acute fracture or malalignment. 2. Degenerative disc change and scoliosis in the lower lumbar spine. Gustabo Hudson MD Head CT 04/21/17112 Signed Impressions: Service Date/Time: Friday, April 21, 2017 02:43 - CONCLUSION: 1. No acute hemorrhage or mass effect. 2. Stable calcified meningioma. 3. Stable sellar and suprasellar mass. Gustabo Hudson MD Chest X-Ray 04/21/17112 Signed Impressions: Service Date/Time: Friday, April 21, 2017 01:17 - CONCLUSION: No acute cardiopulmonary disease. Gustabo Hudson MD Cervical Spine CT 04/21/17112 Signed Impressions: Service Date/Time: Friday, April 21, 2017 02:43 - CONCLUSION: 1. A fracture deformity of the right side of the anterior arch of C1 is now noted which was not present on the prior study with mild distraction of 3-4 mm. The atlantoaxial relationship remains is maintained. There are degenerative changes in the atlantoaxial joint with chronic deformity of the dens which is increased. 2. Extensive degenerative disc and joint changes are noted. There are no additional fractures. 3. Stable anterior spondylolisthesis of C6 on C7 and C7 on T1. Gustabo Hudson MD Abdomen/Pelvis CT 04/21/17 0113 Signed Impressions: Service Date/Time: Friday, April 21, 2017 02:50 - CONCLUSION: 1. No evidence of acute visceral injury. 2. Retroperitoneal and periportal adenopathy of concern for lymphoma. 3. Right renal angiomyolipoma. 4. Abnormal gallbladder with higher density regions which may represent gallstones. The gallbladder appears partially contracted. Gustabo Hudson MD Objective Remarks GENERAL: Well-nourished, well-developed pleasantly confused elderly female patient in [facility]. SKIN: Warm and dry. See below. HEENT: Normocephalic. Atraumatic. Pupils equal and round. Mucous membranes pink and moist. NECK: [place] J brace in place. CARDIOVASCULAR: Regular rate and rhythm. S1, S2 noted. No murmur appreciated. RESPIRATORY: No accessory muscle use. Clear to auscultation. Breath sounds equal bilaterally. GASTROINTESTINAL: Abdomen soft, non-tender, nondistended. Normoactive bowel sounds x4. MUSCULOSKELETAL: No obvious deformities. BLE wrapped with dressing from mid foot to distal knee, dressings removed, patient with warmth/erythema from ankles to proximal segura; superficial abrasions to right ankle and right lateral segura. NEUROLOGICAL: Awake and alert, oriented to self and hospital only. No obvious cranial nerve deficits. Motor grossly within normal limits. 5/5 muscle strength in bilateral upper extremities, does not follow commands for lower extremity strength testing although did move bilateral lower extremities spontaneously. Normal speech. PSYCHIATRIC: Pleasantly confused mood; insight and judgment limited. Medications and IVs Current Medications Medications (Trade) Dose Ordered Sig/Feliciano Route Start Time Stop Time Status Last Admin (NS Flush) 2 ml UNSCH PRN IVF 04/21/17 01:15 Sodium Chloride 1,000 ml @ 100 mls/hr Q10H IV 04/21/17 05:47 04/21/17 18:44 (NS Flush) 2 ml UNSCH PRN IV FLUSH 04/21/17 06:00 (NS Flush) 2 ml BID IV FLUSH 04/21/17 09:00 04/21/17 11:50 (Zofran Inj) 4 mg Q6H PRN IVP 04/21/17 06:00 (Tylenol) 650 mg Q6H PRN PO 04/21/17 06:00 ([place] 5-325 Mg) 1 tab Q4H PRN PO 04/21/17 06:00 04/21/17 15:44 (Abigail-Colace) 1 tab BID PO 04/21/17 09:00 04/22/17 08:13 (Milk Of Magnesia Liq) 30 ml Q12H PRN PO 04/21/17 06:00 (Senokot) 17.2 mg Q12H PRN PO 04/21/17 06:00 (Dulcolax Supp) 10 mg DAILY PRN RECTAL 04/21/17 06:00 (Lactulose Liq) 30 ml DAILY PRN PO 04/21/17 06:00 (Bumetanide) 2 mg BID PO 04/21/17 09:00 04/22/17 08:13 (Lopid) 600 mg BIDAC PO 04/21/17 07:00 04/22/17 08:08 (Synthroid) 75 mcg DAILY@0600 PO 04/21/17 06:00 04/22/17 08:08 (Aldactone) 12.5 mg DAILY PO 04/21/17 09:00 04/22/17 08:13 (Theragran M Tab) 1 tab DAILY PO 04/21/17 09:00 04/22/17 08:13 (Protonix) 40 mg DAILY PO 04/21/17 09:00 04/21/17 11:48 (Effexor Xr) 37.5 mg DAILY PO 04/21/17 09:00 04/22/17 08:13 (Morphine Inj) 2 mg Q3H PRN IV 04/21/17 06:15 A/P Problem List: (1) Fall ICD Code: W19.XXXA - Unspecified fall, initial encounter (2) Intractable pain ICD Code: R52 - Pain, unspecified (3) C1 cervical fracture ICD Code: S12.000A - Unspecified displaced fracture of first cervical vertebra , initial encounter for closed fracture (4) Renal insufficiency ICD Code: N28.9 - Disorder of kidney and ureter, unspecified (5) Leukocytosis ICD Code: D72.829 - Elevated white blood cell count, unspecified (6) Hyperkalemia ICD Code: E87.5 - Hyperkalemia Assessment and Plan 86-year-old female with a PMH of HTN, Hyperlipidemia, Dementia, CHF (Unknown EF) , Hypothyroidism and Recurrent Falls was sent to the ER from [facility] secondary to witnessed fall. Pt unable to provide much history, AA&O x1 at baseline. Fall: witnessed fall while at [facility], CT Head w/ no acute findings, CXR negative -PT eval and treat, PT recommends rehab/snf for PT -Case management assisting with discharge planning C1 Fracture: CT C-Spine w/ C1 fracture, images reviewed by me, Dr. Barney consulted by ER physician, recommended C-Collar w/ outpatient follow up. -Changed to [place] J for comfort and care home. -Analgesics/antiemetics as needed. -Needs rehab Intractable Pain: secondary to above, unable to ambulate independently, unsafe d/c home as pt lives in [facility]. -Analgesics/antiemetics as needed. -Daily PT ERIC: Creatinine 1.47 upon arrival. U/a negative. -Given IVF for hydration, caution w/ h/o CHF. -Repeat labs show improvement with Cr 0.88. Resolved. Leukocytosis: Chronic. WBC 48, previously 32 on 10/21/16. CT Abd/Pelvis w/ adenopathy suggestive of lymphoma, images reviewed by me. -Per report, family does not wish to proceed w/ aggressive intervention. Monitor as outpatient. Hyperkalemia: K+ 5.4, noted to have hemolysis. Repeat lab is 4.1. -Cont to monitor, repeat labs show improvement, K 3.6. Resolved. Hypotension, likely due to morphine IV -Caution with IV pain medications -BP improved Bilateral Lower Extremity Cellulitis: -start on keflex 500mg q8h -consult wound care nurse -monitor for improvement DVT Prophylaxis: Heparin sq Discharge Planning Patient is unsafe discharge back to [facility], needs SNF/rehab. Case management assisting with discharge planning. Problem Qualifiers (1) C1 cervical fracture: Qualified Codes: S12.091A - Other nondisplaced fracture of first cervical vertebra, initial encounter for closed fracture Viktoriya Tubbs PA-C Apr 22, 2017 08:57
[2017-04-22] MEDS: HEPARIN SODIUM - SQ 10,000 UNITS/ML VIAL SQ SCH ×2 (09:48→21:30)
[2017-04-22] MEDS: CEPHALEXIN MONOHYDRATE 500 MG CAP PO SCH ×2 (15:08→21:29)
--- NOTE | 2017-04-22 18:20 | PD.WCN.NOT ---
Wound Consult Description: Consult for Wound Management of BLE Communicated with: ACACIA Michaud Recommendation: Cleanse right medial ankle with NS and gauze daily Apply single layer Xeroform over open wound only Cover with gauze Secure with rolled gauze and tape. Do Not apply tape to skin. Additional Information: Patient seen on [address] for one open wound noted to right medial ankle measuring ~2cm x 1cm x <0.1cm of red non granulating vascular tissue without odor. Single layer Xeroform was applied to open wound and covered with 4x4 gauze and secured with rolled gauze and tape. Recommend to change dressing daily and keep legs elevated. Periwound is noted with bright red dry skin with multiple areas of dried exudate. Bilateral legs were visualized with only one open wound found. Heels are elevated off mattress surface with a pillow underneath calves. Patient appears to have chronic venous stasis. Lorin Zarate [facility] Apr 22, 2017 18:20
[2017-04-23 01:06] VITALS: BP 133/61; PULSE 84; RESP 20; TEMP 97.7; O2SAT 94
[2017-04-23 05:16] VITALS: BP 152/70; PULSE 85; RESP 20; TEMP 98.3; O2SAT 97
[2017-04-23] MEDS: LEVOTHYROXINE SODIUM 75 MCG TAB PO SCH (05:50)
[2017-04-23] MEDS: CEPHALEXIN MONOHYDRATE 500 MG CAP PO SCH ×3 (05:50→21:19)
[2017-04-23] MEDS: GEMFIBROZIL 600 MG TAB PO SCH ×2 (06:46→15:11)
[2017-04-23] MEDS: SODIUM CHLOR 0.9% 1000 ML INJ 1,000 ML IV SCH (07:47)
[2017-04-23 07:57] VITALS: BP 142/65; PULSE 83; RESP 18; TEMP 98; O2SAT 94
[2017-04-23] MEDS: SODIUM CHLORIDE 0.9% FLUSH 10 ML FLUSH IV FLUSH SCH ×2 (09:00→23:14)
[2017-04-23] MEDS: DOCUSATE SODIUM 50 MG/SENNA 8.6 MG TAB PO SCH ×2 (09:56→21:19)
[2017-04-23] MEDS: MULTIVITAMINS/MINERALS THERAPEUTIC TAB PO SCH (09:56)
[2017-04-23] MEDS: PANTOPRAZOLE SOD 40 MG DELAYED RELEASE TAB PO SCH (09:56)
[2017-04-23] MEDS: VENLAFAXINE HCL XR 37.5 MG CAP PO SCH (09:56)
[2017-04-23] MEDS: BUMETANIDE 1 MG TAB PO SCH ×2 (09:57→23:13)
[2017-04-23] MEDS: SPIRONOLACTONE 25 MG TAB PO SCH (09:57)
[2017-04-23] MEDS: HEPARIN SODIUM - SQ 10,000 UNITS/ML VIAL SQ SCH ×2 (09:59→21:21)
[2017-04-23 10:01] LABS: AUTOMATED NEUTROPHIL # 7.8 TH/MM3 (1.8-7.7); BASOPHIL # 0.1 TH/MM3 (0-0.2); BASOPHIL % 0.4 % (0.0-2.0); EOSINOPHIL # 0.3 TH/MM3 (0-0.4); EOSINOPHIL % 0.8 % (0.0-4.0); LYMPHOCYTE # 22.4 TH/MM3 (1.0-4.8); MEAN CELL VOLUME 84.9 FL (80.0-100.0); MEAN CORPUSCULAR HEMOGLOBIN 27.2 PG (27.0-34.0); MONO % 3.1 % (0.0-8.0); NEUT % 24.7 % (16.0-70.0); PLATELET COUNT 291 TH/MM3 (150-450); RED BLOOD COUNT 3.88 MIL/MM3 (4.00-5.30); RED CELL DISTRIBUTION WIDTH 14.5 % (11.6-17.2); WHITE BLOOD COUNT 31.6 TH/MM3 (4.0-11.0)
[2017-04-23 10:11] LABS: HEMO FLAGS AUTO DIFF
[2017-04-23 10:34] LABS: POTASSIUM 3.3 MEQ/L (3.5-5.1)
[2017-04-23 10:59] LABS: BICARBONATE 23.9 MEQ/L (21.0-32.0)
[2017-04-23] MEDS ORDERED: POTASSIUM BICARBONATE 25 MEQ EFFERVESCENT TAB PO ONE (11:45)
[2017-04-23] MEDS ORDERED: WHEEMIS3 (11:51)
[2017-04-23] MEDS ORDERED: PILL SPLITTER OTHER PRN (12:15)
[2017-04-23 12:22] VITALS: BP 137/65; PULSE 77; RESP 17; TEMP 98; O2SAT 97
[2017-04-23 14:00] LABS: EOSINOPHILS 2 % (0-4); NEUTROPHIL # MANUAL DIFF 6.6 TH/MM3 (1.8-7.7); OVALOCYTES 1+ (NORMAL); PLATELET ESTIMATE SMEAR NORMAL (NORMAL); PLATELET MORPHOLOGY NORMAL (NORMAL); POLYS (SEG NEUTROPHILS) 21 % (16-70); SCAN/DIFF FINAL DIFF MANUAL; SMUDGE CELLS PRESENT PRESENT; WBC DIFF SAMPLE 100
--- NOTE | 2017-04-23 14:55 | HHI.PR ---
Subjective Remarks Follow up on patient with C1 fracture status post a fall, dementia, renal insufficiency. Patient seen and examined. Earlier today, patient calling out for help from her room repetitively. Patient placed in restraints. Attempting to get out of bed unassisted as well as taking her [place] collar off. Patient evaluated later in the day and is much more calm. She is seated in the bedside chair with family present. She denies any complaints at this time. Denies any neck pain. She does complain about wearing the cervical collar. She denies any fever or chills. Denies any chest pain or shortness of breath. Denies any nausea, vomiting or abdominal pain. Participated some with physical therapy. Positive BM. Objective Vitals Vital Signs Date Time Temp Pulse Resp B/P (MAP) Pulse Ox O2 Delivery O2 Flow Rate FiO2 04/23/17 12:22 98.0 77 17 137/65 (89) 97 04/23/17 07:57 98.0 83 18 142/65 (90) 94 04/23/17 05:16 98.3 85 20 152/70 (97) 97 04/23/17 01:06 97.7 84 20 133/61 (85) 94 04/22/17 21:12 98.2 82 20 139/65 (89) 95 04/22/17 17:15 97.9 78 18 124/60 (81) 95 04/22/17 15:15 98.3 90 18 122/58 (79) 93 I/O 04/22/17 04/22/17 04/22/17 04/23/17 04/23/17 04/23/17 07:00 15:00 23:00 07:00 15:00 23:00 Intake Total 1000 ml 888 ml 1000 ml Balance 1000 ml 888 ml 1000 ml IV Total 1000 ml 888 ml 1000 ml # Voids 2 Result Diagram: 04/23/1791304/23/17913 Imaging Last Impressions Pelvis X-Ray 04/21/17112 Signed Impressions: Service Date/Time: Friday, April 21, 2017 01:18 - CONCLUSION: 1. Osteopenia with no acute fracture or malalignment. 2. Degenerative disc change and scoliosis in the lower lumbar spine. Gustabo Hudson MD Head CT 04/21/17112 Signed Impressions: Service Date/Time: Friday, April 21, 2017 02:43 - CONCLUSION: 1. No acute hemorrhage or mass effect. 2. Stable calcified meningioma. 3. Stable sellar and suprasellar mass. Gustabo Hudson MD Chest X-Ray 04/21/17112 Signed Impressions: Service Date/Time: Friday, April 21, 2017 01:17 - CONCLUSION: No acute cardiopulmonary disease. Gustabo Hudson MD Cervical Spine CT 04/21/17112 Signed Impressions: Service Date/Time: Friday, April 21, 2017 02:43 - CONCLUSION: 1. A fracture deformity of the right side of the anterior arch of C1 is now noted which was not present on the prior study with mild distraction of 3-4 mm. The atlantoaxial relationship remains is maintained. There are degenerative changes in the atlantoaxial joint with chronic deformity of the dens which is increased. 2. Extensive degenerative disc and joint changes are noted. There are no additional fractures. 3. Stable anterior spondylolisthesis of C6 on C7 and C7 on T1. Gustabo Hudson MD Abdomen/Pelvis CT 04/21/17112 Signed Impressions: Service Date/Time: Friday, April 21, 2017 02:50 - CONCLUSION: 1. No evidence of acute visceral injury. 2. Retroperitoneal and periportal adenopathy of concern for lymphoma. 3. Right renal angiomyolipoma. 4. Abnormal gallbladder with higher density regions which may represent gallstones. The gallbladder appears partially contracted. Gustabo Hudsno MD Objective Remarks GENERAL: Well-nourished, well-developed pleasantly confused elderly female patient in NAD. Seated in bedside chair. Family members at bedside. SKIN: Warm and dry. (+)chronic venous status changes noted BLE, tender to palpation with associated warmth and erythema. Right ankle and lower segura dressed which is C/D/I. HEENT: Normocephalic. Atraumatic. Pupils equal and round. Mucous membranes pink and moist. NECK: [place] J brace in place. CARDIOVASCULAR: Regular rate and rhythm. S1, S2 noted. No murmur appreciated. RESPIRATORY: No accessory muscle use. Clear to auscultation. Breath sounds equal bilaterally. GASTROINTESTINAL: Abdomen soft, non-tender, nondistended. Normoactive bowel sounds x4. MUSCULOSKELETAL: Trace edema BLE. NEUROLOGICAL: Awake and alert, oriented to self and hospital only. No obvious cranial nerve deficits. Able to move all extremities spontaneously. Normal speech. PSYCHIATRIC: Pleasantly confused mood; insight and judgment limited. Medications and IVs Current Medications Medications (Trade) Dose Ordered Sig/Feliciano Route Start Time Stop Time Status Last Admin (NS Flush) 2 ml UNSCH PRN IVF 04/21/17 01:15 Sodium Chloride 1,000 ml @ 75 mls/hr [id number] IV 04/21/17 05:47 04/23/17 07:47 (NS Flush) 2 ml UNSCH PRN IV FLUSH 04/21/17 06:00 (NS Flush) 2 ml BID IV FLUSH 04/21/17 09:00 04/23/17 09:00 (Zofran Inj) 4 mg Q6H PRN IVP 04/21/17 06:00 (Tylenol) 650 mg Q6H PRN PO 04/21/17 06:00 ([place] 5-325 Mg) 1 tab Q4H PRN PO 04/21/17 06:00 04/21/17 15:44 (Abigail-Colace) 1 tab BID PO 04/21/17 09:00 04/23/17 09:56 (Milk Of Magnesia Liq) 30 ml Q12H PRN PO 04/21/17 06:00 (Senokot) 17.2 mg Q12H PRN PO 04/21/17 06:00 (Dulcolax Supp) 10 mg DAILY PRN RECTAL 04/21/17 06:00 (Lactulose Liq) 30 ml DAILY PRN PO 04/21/17 06:00 (Bumetanide) 2 mg BID PO 04/21/17 09:00 04/23/17 09:57 (Lopid) 600 mg BIDAC PO 04/21/17 07:00 04/23/17 06:46 (Synthroid) 75 mcg DAILY@0600 PO 04/21/17 06:00 04/23/17 05:50 (Aldactone) 12.5 mg DAILY PO 04/21/17 09:00 04/23/17 09:57 (Theragran M Tab) 1 tab DAILY PO 04/21/17 09:00 04/23/17 09:56 (Protonix) 40 mg DAILY PO 04/21/17 09:00 04/23/17 09:56 (Effexor Xr) 37.5 mg DAILY PO 04/21/17 09:00 04/23/17 09:56 (Morphine Inj) 2 mg Q3H PRN IV 04/21/17 06:15 (Heparin Inj) 5,000 units Q12HR SQ 04/22/17 09:00 04/23/17 09:59 (Keflex) 500 mg Q8HR PO 04/22/17 14:00 04/23/17 05:50 (SEROquel) 12.5 mg HS PO 04/23/17 21:00 (Tenormin) 25 mg HS PO 04/23/17 21:00 (KCl) 10 meq BID PO 04/23/17 21:00 (Pill Splitter) 1 ea UNSCH PRN OTHER 04/23/17 12:15 A/P Problem List: (1) Fall ICD Code: W19.XXXA - Unspecified fall, initial encounter (2) Intractable pain ICD Code: R52 - Pain, unspecified (3) C1 cervical fracture ICD Code: S12.000A - Unspecified displaced fracture of first cervical vertebra , initial encounter for closed fracture (4) Renal insufficiency ICD Code: N28.9 - Disorder of kidney and ureter, unspecified (5) Leukocytosis ICD Code: D72.829 - Elevated white blood cell count, unspecified (6) Hyperkalemia ICD Code: E87.5 - Hyperkalemia Assessment and Plan 86-year-old female with a PMH of HTN, Hyperlipidemia, Dementia, CHF (Unknown EF) , Hypothyroidism and Recurrent Falls was sent to the ER from [facility] secondary to witnessed fall. Pt unable to provide much history, AA&O x1 at baseline. Fall: witnessed fall while at [facility], CT Head w/ no acute findings, CXR negative -PT eval and treat, PT recommends rehab/snf for PT -Case management assisting with discharge planning -Fall risk Dementia with behavioral disturbance - patient placed in restraints earlier today due to repetitively attempting to get out of bed unassisted and takeoff [place] collar. Not able to participate with PT yesterday due to cognitive impairment - Consult Psychiatry - start low-dose Seroquel at bedtime - check B12, TSH and RPR C1 Fracture: CT C-Spine w/ C1 fracture, images reviewed by me, Dr. Barney consulted by ER physician, recommended C-Collar w/ outpatient follow up. -Changed to [place] for comfort and skilled nursing. -Analgesics/antiemetics as needed. -Needs rehab ERIC: Creatinine 1.47 upon arrival. U/a negative. -Given IVF for hydration, caution w/ h/o CHF. -Repeat labs show improvement with Cr 0.88. Resolved. Stop IVF. Leukocytosis: Chronic. WBC 48, previously 32 on 10/21/16. CT Abd/Pelvis w/ adenopathy suggestive of lymphoma. -Per report, family does not wish to proceed w/ aggressive intervention. Monitor as outpatient. HTN -episode of hypotension with IV Morphine, resolved. -resume home Atenolol and Lisinopril -monitor BP CHF -not decompensated -continue on home dose of Bumex, Spirolactone and KCL. Monitor electrolytes. -monitor for signs of fluid overload -strict I&Os Hypokalemia -replete -check mag level -resume home K dose -monitor K closely Bilateral Lower Extremity Cellulitis: -continue on Keflex 500mg q8h -Wound care nurse consulted, appreciate recommendations. Continue wound care. -monitor for improvement Hypothyroidism -Patient continue on home dose of levothyroxine -check TSH level DVT Prophylaxis: Heparin sq Discussed with patient, family members and Dr. Hernandez Discharge Planning Patient is unsafe discharge back to [facility], needs SNF/rehab. Case management assisting with discharge planning. Problem Qualifiers (1) Fall: Qualified Codes: W19.XXXA - Unspecified fall, initial encounter (2) C1 cervical fracture: Qualified Codes: S12.091A - Other nondisplaced fracture of first cervical vertebra, initial encounter for closed fracture Sushma Garcia Apr 23, 2017 14:55
[2017-04-23 16:25] VITALS: BP 146/66; PULSE 84; RESP 18; TEMP 97.9; O2SAT 96
[2017-04-23 16:39] LABS: MAGNESIUM 2.2 MG/DL (1.5-2.5)
[2017-04-23 20:00] VITALS: BP 122/59; PULSE 86; RESP 17; TEMP 98.3; O2SAT 96
[2017-04-23] MEDS: ATENOLOL 25 MG TAB PO SCH (21:19)
[2017-04-23] MEDS: POTASSIUM CHLORIDE 10 MEQ CAP PO SCH (21:19)
[2017-04-23] MEDS: QUEtiapine FUMARATE 25 MG TAB PO SCH (21:20)
[2017-04-24] VITALS: BP 109/53; PULSE 68; RESP 18; TEMP 98.5; O2SAT 97
[2017-04-24 04:00] VITALS: BP 119/57; PULSE 74; RESP 21; TEMP 98.3; O2SAT 100
[2017-04-24] MEDS: LEVOTHYROXINE SODIUM 75 MCG TAB PO SCH (06:22)
[2017-04-24] MEDS: CEPHALEXIN MONOHYDRATE 500 MG CAP PO SCH ×3 (06:22→21:41)
[2017-04-24] MEDS: GEMFIBROZIL 600 MG TAB PO SCH ×2 (06:22→14:55)
[2017-04-24 08:00] VITALS: BP 108/72; PULSE 72; RESP 16; TEMP 97.6; O2SAT 95
[2017-04-24] MEDS: VENLAFAXINE HCL XR 37.5 MG CAP PO SCH (09:52)
[2017-04-24] MEDS: DOCUSATE SODIUM 50 MG/SENNA 8.6 MG TAB PO SCH ×2 (09:52→21:41)
[2017-04-24] MEDS: BUMETANIDE 1 MG TAB PO SCH ×2 (09:53→21:44)
[2017-04-24] MEDS: SPIRONOLACTONE 25 MG TAB PO SCH (09:53)
[2017-04-24] MEDS: PANTOPRAZOLE SOD 40 MG DELAYED RELEASE TAB PO SCH (09:53)
[2017-04-24] MEDS: MULTIVITAMINS/MINERALS THERAPEUTIC TAB PO SCH (09:53)
[2017-04-24] MEDS: LISINOPRIL 5 MG TAB PO SCH (09:54)
[2017-04-24] MEDS: SODIUM CHLORIDE 0.9% FLUSH 10 ML FLUSH IV FLUSH SCH ×2 (09:54→21:46)
[2017-04-24] MEDS: POTASSIUM CHLORIDE 10 MEQ CAP PO SCH (09:54)
[2017-04-24] MEDS: HEPARIN SODIUM - SQ 10,000 UNITS/ML VIAL SQ SCH ×2 (09:55→21:45)
[2017-04-24 10:16] LABS: BICARBONATE 24.1 MEQ/L (21.0-32.0); POTASSIUM 3.7 MEQ/L (3.5-5.1)
[2017-04-24 12:00] VITALS: BP 116/58; PULSE 74; RESP 16; TEMP 97.6; O2SAT 96
[2017-04-24] MEDS: ACETAMINOPHEN/HYDROcodone 325 MG/5 MG TAB PO PRN ×2 (12:37→21:45)
--- NOTE | 2017-04-24 14:33 | HHI.PR ---
Subjective Remarks Follow up on patient with dementia, C1 fracture. Patient seen and examined. Patient sleeping but easily awakens to voice. Calm and pleasant. Denies any complaints at present. Tolerating [place] Collar. Denies any complaints at this time. Objective Vitals Vital Signs Date Time Temp Pulse Resp B/P (MAP) Pulse Ox O2 Delivery O2 Flow Rate FiO2 04/24/17 12:00 97.6 74 16 116/58 (77) 96 04/24/17 08:00 97.6 72 16 108/72 (84) 95 04/24/17 04:00 98.3 74 21 119/57 (77) 100 04/24/17 00:00 98.5 68 18 109/53 (71) 97 04/23/17 20:00 98.3 86 17 122/59 (80) 96 04/23/17 16:25 97.9 84 18 146/66 (92) 96 I/O 04/23/17 04/23/17 04/23/17 04/24/17 04/24/17 04/24/17 07:00 15:00 23:00 07:00 15:00 23:00 Intake Total 888 ml 1360 ml Balance 888 ml 1360 ml Intake Oral 360 ml IV Total 888 ml 1000 ml # Voids 2 2 0 1 # Bowel Movements 1 Result Diagram: 04/23/17 0914 04/24/17 0845 Imaging Last Impressions Pelvis X-Ray 04/21/17112 Signed Impressions: Service Date/Time: Friday, April 21, 2017 01:18 - CONCLUSION: 1. Osteopenia with no acute fracture or malalignment. 2. Degenerative disc change and scoliosis in the lower lumbar spine. Gustabo Hudson MD Head CT 04/21/17112 Signed Impressions: Service Date/Time: Friday, April 21, 2017 02:43 - CONCLUSION: 1. No acute hemorrhage or mass effect. 2. Stable calcified meningioma. 3. Stable sellar and suprasellar mass. Gustabo Hudson MD Chest X-Ray 04/21/17112 Signed Impressions: Service Date/Time: Friday, April 21, 2017 01:17 - CONCLUSION: No acute cardiopulmonary disease. Gustabo Hudson MD Cervical Spine CT 04/21/17112 Signed Impressions: Service Date/Time: Friday, April 21, 2017 02:43 - CONCLUSION: 1. A fracture deformity of the right side of the anterior arch of C1 is now noted which was not present on the prior study with mild distraction of 3-4 mm. The atlantoaxial relationship remains is maintained. There are degenerative changes in the atlantoaxial joint with chronic deformity of the dens which is increased. 2. Extensive degenerative disc and joint changes are noted. There are no additional fractures. 3. Stable anterior spondylolisthesis of C6 on C7 and C7 on T1. Gustabo Hudson MD Abdomen/Pelvis CT 04/21/17 0113 Signed Impressions: Service Date/Time: Friday, April 21, 2017 02:50 - CONCLUSION: 1. No evidence of acute visceral injury. 2. Retroperitoneal and periportal adenopathy of concern for lymphoma. 3. Right renal angiomyolipoma. 4. Abnormal gallbladder with higher density regions which may represent gallstones. The gallbladder appears partially contracted. Gustabo Hudson MD Objective Remarks GENERAL: Well-nourished, well-developed pleasantly confused elderly female patient in NAD. Asleep in bed, easily awakens to voice. In soft restraints. SKIN: Warm and dry. (+)chronic venous status changes noted BLE, tender to palpation with associated warmth and erythema. Right ankle and lower segura dressed which is C/D/I. HEENT: Normocephalic. Atraumatic. Pupils equal and round. Mucous membranes pink and moist. NECK: [place] J brace in place. CARDIOVASCULAR: Regular rate and rhythm. S1, S2 noted. No murmur appreciated. RESPIRATORY: No accessory muscle use. Clear to auscultation. Breath sounds equal bilaterally. GASTROINTESTINAL: Abdomen soft, non-tender, nondistended. Normoactive bowel sounds x4. MUSCULOSKELETAL: Trace edema BLE. NEUROLOGICAL: Awake and alert, oriented to self and hospital only. No obvious cranial nerve deficits. Able to move all extremities spontaneously. Normal speech. PSYCHIATRIC: Pleasantly confused mood; insight and judgment limited. Medications and IVs Current Medications Medications (Trade) Dose Ordered Sig/Feliciano Route Start Time Stop Time Status Last Admin (NS Flush) 2 ml UNSCH PRN IV FLUSH 04/21/17 06:00 (NS Flush) 2 ml BID IV FLUSH 04/21/17 09:00 04/24/17 09:54 (Zofran Inj) 4 mg Q6H PRN IVP 04/21/17 06:00 (Tylenol) 650 mg Q6H PRN PO 04/21/17 06:00 ([place] 5-325 Mg) 1 tab Q4H PRN PO 04/21/17 06:00 04/24/17 12:37 (Abigail-Colace) 1 tab BID PO 04/21/17 09:00 04/24/17 09:52 (Milk Of Magnesia Liq) 30 ml Q12H PRN PO 04/21/17 06:00 (Senokot) 17.2 mg Q12H PRN PO 04/21/17 06:00 (Dulcolax Supp) 10 mg DAILY PRN RECTAL 04/21/17 06:00 (Lactulose Liq) 30 ml DAILY PRN PO 04/21/17 06:00 (Bumetanide) 2 mg BID PO 04/21/17 09:00 04/24/17 09:53 (Lopid) 600 mg BIDAC PO 04/21/17 07:00 04/24/17 06:22 (Synthroid) 75 mcg DAILY@0600 PO 04/21/17 06:00 04/24/17 06:22 (Aldactone) 12.5 mg DAILY PO 04/21/17 09:00 04/24/17 09:53 (Theragran M Tab) 1 tab DAILY PO 04/21/17 09:00 04/24/17 09:53 (Protonix) 40 mg DAILY PO 04/21/17 09:00 04/24/17 09:53 (Effexor Xr) 37.5 mg DAILY PO 04/21/17 09:00 04/24/17 09:52 (Heparin Inj) 5,000 units Q12HR SQ 04/22/17 09:00 04/24/17 09:55 (Keflex) 500 mg Q8HR PO 04/22/17 14:00 04/24/17 06:22 (SEROquel) 12.5 mg HS PO 04/23/17 21:00 04/23/17 21:20 (Tenormin) 25 mg HS PO 04/23/17 21:00 04/23/17 21:19 (KCl) 10 meq BID PO 04/23/17 21:00 04/24/17 09:54 (Pill Splitter) 1 ea UNSCH PRN OTHER 04/23/17 12:15 (Prinivil) 2.5 mg DAILY PO 04/24/17 09:00 04/24/17 09:54 A/P Problem List: (1) Fall ICD Code: W19.XXXA - Unspecified fall, initial encounter (2) Intractable pain ICD Code: R52 - Pain, unspecified (3) C1 cervical fracture ICD Code: S12.000A - Unspecified displaced fracture of first cervical vertebra , initial encounter for closed fracture (4) Renal insufficiency ICD Code: N28.9 - Disorder of kidney and ureter, unspecified (5) Leukocytosis ICD Code: D72.829 - Elevated white blood cell count, unspecified (6) Hyperkalemia ICD Code: E87.5 - Hyperkalemia Assessment and Plan 86-year-old female with a PMH of HTN, Hyperlipidemia, Dementia, CHF (Unknown EF) , Hypothyroidism and Recurrent Falls was sent to the ER from [facility] secondary to witnessed fall. Pt unable to provide much history, AA&O x1 at baseline. Fall: witnessed fall while at [facility], CT Head w/ no acute findings, CXR negative -PT eval and treat, PT recommends rehab/snf for PT -Case management assisting with discharge planning -Fall risk Dementia with behavioral disturbance -patient remains in restraints due to repetitively attempting to get out of bed unassisted and takeoff [place] collar. -Consult Psychiatry - pending. Will discuss if patient is a possible candidate for transfer to med/psych. -continue low-dose Seroquel at bedtime -B12 and TSH WNL. RPR nonreactive. C1 Fracture: CT C-Spine w/ C1 fracture, images reviewed by me, Dr. Barney consulted by ER physician, recommended C-Collar w/ outpatient follow up. -Changed to [place] for comfort and terminal operator. -Analgesics/antiemetics as needed. -Needs rehab ERIC: Creatinine 1.47 upon arrival. U/a negative. -Given IVF for hydration, caution w/ h/o CHF. -Repeat labs show improvement with Cr 0.88. Resolved. Stop IVF. -recheck BMP in am due to restarting Lisinopril and continuing on Bumex. Leukocytosis: Chronic. WBC 48, previously 32 on 10/21/16. CT Abd/Pelvis w/ adenopathy suggestive of lymphoma. -Per report, family does not wish to proceed w/ aggressive intervention. Monitor as outpatient. HTN -episode of hypotension with IV Morphine, resolved. D/C IV Morphine. -continue home Atenolol and Lisinopril with parameters -monitor BP CHF -not decompensated -continue medications as above -continue on home dose of Bumex and Spirolactone. Resume KCL but at lower dose. Monitor electrolytes. -monitor for signs of fluid overload -strict I&Os, daily wts Hypokalemia -resolved s/p repletion -mag level 2.2 -continue home K dose -monitor K closely Bilateral Lower Extremity Cellulitis: -continue on Keflex 500mg q8h -Wound care nurse consulted, appreciate recommendations. Continue wound care. -monitor for improvement Hypothyroidism -Patient continue on home dose of levothyroxine -TSH level WNL DVT Prophylaxis: Heparin sq Discussed with patient, nursing staff and Dr. Hernandez Discharge Planning Patient is unsafe discharge back to [facility], needs SNF/rehab. Case management assisting with discharge planning. Possibly candidate for transfer to med/ psych if Psychiatry service deems appropriate. Problem Qualifiers (1) Fall: Qualified Codes: W19.XXXA - Unspecified fall, initial encounter (2) C1 cervical fracture: Qualified Codes: S12.091A - Other nondisplaced fracture of first cervical vertebra, initial encounter for closed fracture Sushma Garcia Apr 24, 2017 14:33
--- NOTE | 2017-04-24 15:42 | PD.PSY.CON ---
Provisional Diagnosis Admission Date Apr 22, 2017 at 12:06 Nyssa I. Dementia History of Present Illness Service Psychiatry Consult Requested By Medical team Reason for Consult Agitation and dementia Primary Care Physician Non-Staff HPI The patient is a 86-year-old female with a PMH of HTN, Hyperlipidemia, Dementia , CHF (Unknown EF), Hypothyroidism and Recurrent Falls was sent to the ER from [facility] secondary to witnessed fall. Pt unable to provide much history, AA&O x1 at baseline. C1 Fracture: CT C-Spine w/ C1 fracture, images reviewed by me, Dr. Barney consulted by ER physician, recommended C-Collar w/ outpatient follow up. ERIC: Creatinine 1.47 upon arrival. U/a negative. Leukocytosis: Chronic. WBC 48, previously 32 on 10/21/16. CT Abd/Pelvis w/ adenopathy suggestive of lymphoma. Per report, family does not wish to proceed w/ aggressive intervention. Monitor as outpatient. Consulted to psychiatry due to behavioral dysregulation and agitation. On psychiatric evaluation today patient complaining of headache and requesting to be left alone "because I want to sleep". Patient does not know the reason of her hospitalization. I asked her where she is she says "I am here home". Patient is reluctant to continue the evaluation, she says "Conrad please leave me alone". Patient is restrained in 4 points, as per nurse in charge, patient has been episodically agitated and behaviorally this regulated. Review of Systems ROS Limitations: Uncooperative Past Family Social History Coded Allergies: rivastigmine (Unverified Allergy, Severe, stomach ulcers, 04/21/17) amlodipine (Unverified Allergy, Intermediate, muscle pain, 04/21/17) atorvastatin (Unverified Allergy, Intermediate, muscle pain, 04/21/17) pravastatin (Unverified Allergy, Intermediate, muscle pain, 04/21/17) simvastatin (Unverified Allergy, Intermediate, muscle pain, 04/21/17) aspirin (Unverified Adverse Reaction, Severe, bleeding ulcers, 04/21/17) Active Scripts Wheelchair Elevated Leg (Wheelchair Elevated Leg) 1 Mis Mis, EA .ROUTE DIRECTED, #1 0 Refills Prov:Sushma Garcia 04/23/17 Reported Medications Lisinopril (Lisinopril) 2.5 Mg Tab, 2.5 MG PO DAILY, #30 TAB 0 Refills 04/21/17 Atenolol (Atenolol) 25 Mg Tab, 25 MG PO HS for Blood Pressure Management, #30 TAB 04/21/17 Atenolol (Atenolol) 25 Mg Tab, 25 MG PO DAILY NEB for Blood Pressure Management , #30 TAB 04/21/17 Zinc Oxide (Topical) (Zinc Oxide) 20 % Oin, TOPICAL BID Y for RASH 11/30/16 Cholecalciferol (Vitamin D3) 2,000 Unit Cap, 2000 UNITS PO DAILY for Nutritional Supplement, #1 BOTTLE 0 Refills 11/30/16 Dextromethorphan-Guaifenesin (Robitussin Peak Cold Dm 100-10 mg/5Ml) 1 Syp Syp, 5 ML PO Q4HR Y for COUGH 11/30/16 Potassium Chloride ER (Potassium Chloride ER) 10 Meq Cap, 10 MEQ PO BID for Electrolyte Replacement, #60 CAP 0 Refills 11/30/16 Furosemide (Lasix) 40 Mg Tab, 40 MG PO DAILY, #30 TAB 0 Refills 11/30/16 Loperamide (Imodium A-D) 2 Mg Capsule, 2 MG PO DIRECTED Y for DIARRHEA, CAP 0 Refills One capsule after each loose stool. Not to exceed 8 tablets per day. 11/30/16 Bumetanide (Bumetanide) 2 Mg Tab, 2 MG PO BID, TAB 0 Refills 11/30/16 Acetaminophen (Tylenol) 325 Mg Tab, 650 MG PO Q12HR Y for PAIN SCALE 1 TO 10, TAB 0 Refills 11/30/16 Multiple Vitamins W/ Minerals (Certavite Senior/Antioxid) 1 Tab Tab, 1 TAB PO DAILY 10/21/16 Omeprazole (Omeprazole) 40 Mg Cap, 40 MG PO DAILY, #30 CAP 0 Refills 10/21/16 Gemfibrozil (Gemfibrozil) 600 Mg Tab, 600 MG PO BIDAC, #60 TAB 0 Refills Take 30 minutes prior to breakfast and dinner. 10/21/16 Venlafaxine (Effexor) 37.5 Mg Tab, 37.5 MG PO Q12H, #60 TAB 0 Refills 10/21/16 Calcium Carbonate (Antacid) (Tums E-X 750) 750 Mg Chew, 750 MG CHEW Y for HEARTBURN, TAB 0 Refills 10/21/16 Levothyroxine (Levothyroxine) 75 Mcg Tab, 75 MCG PO DAILY for Thyroid, #30 TAB 0 Refills 10/21/16 Spironolactone (Spironolactone) 25 Mg Tab, 12.5 MG PO DAILY, #15 TAB 0 Refills 10/21/16 Discontinued Reported Medications Atenolol (Atenolol) 100 Mg Tab, 100 MG PO DAILY for Blood Pressure Management, # 30 TAB 0 Refills 10/21/16 Current Medications Medications (Trade) Dose Ordered Sig/Feliciano Route Start Time Stop Time Status Last Admin (NS Flush) 2 ml UNSCH PRN IV FLUSH 04/21/17 06:00 (NS Flush) 2 ml BID IV FLUSH 04/21/17 09:00 04/24/17 09:54 (Zofran Inj) 4 mg Q6H PRN IVP 04/21/17 06:00 (Tylenol) 650 mg Q6H PRN PO 04/21/17 06:00 ([place] 5-325 Mg) 1 tab Q4H PRN PO 04/21/17 06:00 04/24/17 12:37 (Abigail-Colace) 1 tab BID PO 04/21/17 09:00 04/24/17 09:52 (Milk Of Magnesia Liq) 30 ml Q12H PRN PO 04/21/17 06:00 (Senokot) 17.2 mg Q12H PRN PO 04/21/17 06:00 (Dulcolax Supp) 10 mg DAILY PRN RECTAL 04/21/17 06:00 (Lactulose Liq) 30 ml DAILY PRN PO 04/21/17 06:00 (Bumetanide) 2 mg BID PO 04/21/17 09:00 04/24/17 09:53 (Lopid) 600 mg BIDAC PO 04/21/17 07:00 04/24/17 14:55 (Synthroid) 75 mcg DAILY@0600 PO 04/21/17 06:00 04/24/17 06:22 (Aldactone) 12.5 mg DAILY PO 04/21/17 09:00 04/24/17 09:53 (Theragran M Tab) 1 tab DAILY PO 04/21/17 09:00 04/24/17 09:53 (Protonix) 40 mg DAILY PO 04/21/17 09:00 04/24/17 09:53 (Effexor Xr) 37.5 mg DAILY PO 04/21/17 09:00 04/24/17 09:52 (Heparin Inj) 5,000 units Q12HR SQ 04/22/17 09:00 04/24/17 09:55 (Keflex) 500 mg Q8HR PO 04/22/17 14:00 04/24/17 14:56 (SEROquel) 12.5 mg HS PO 04/23/17 21:00 04/23/17 21:20 (Tenormin) 25 mg HS PO 04/23/17 21:00 04/23/17 21:19 (Pill Splitter) 1 ea UNSCH PRN OTHER 04/23/17 12:15 (Prinivil) 2.5 mg DAILY PO 04/24/17 09:00 04/24/17 09:54 (KCl) 10 meq DAILY PO 04/25/17 09:00 UNV Physical Exam Vital Signs Vital Signs Date Time Temp Pulse Resp B/P (MAP) Pulse Ox O2 Delivery O2 Flow Rate FiO2 04/24/17 12:00 97.6 74 16 116/58 (77) 96 04/21/17 05:30 Room Air Lab Results Test 04/24/17 08:45 Blood Urea Nitrogen 18 MG/DL Creatinine 0.88 MG/DL Random Glucose 90 MG/DL Calcium Level 8.6 MG/DL Sodium Level 142 MEQ/L Potassium Level 3.7 MEQ/L Chloride Level 108 MEQ/L Carbon Dioxide Level 24.1 MEQ/L Anion Gap 10 MEQ/L Estimat Glomerular Filtration Rate 61 ML/MIN Rapid Plasma Reagin NON-REACTIVE Mental Status Examination Appearance: Appropriate Consciousness: Clouded Orientation: Person Motor Activity: Abnormal gait Speech: Hesitant Language: Adequate Fund of Knowledge: Inadequate Attention and Concentration: Easily Distracted Memory: Impaired Mood: Angry Affect: Irritable Thought Process & Associations: Disorganized Hallucination Type: None Delusion Type: None Suicidal Ideation: No Suicidal Plan: No Suicidal Intention: No Homicidal Ideation: No Homicidal Plan: No Homicidal Intention: No Insight: Poor Judgment: Poor Assessment & Plan Problem List: (1) Dementia ICD Codes: F03.90 - Unspecified dementia without behavioral disturbance (2) Delirium due to another medical condition ICD Codes: F05 - Delirium due to known physiological condition Assessment & Plan: Patient is poorly cooperative, disoriented, agitated, reportedly behavioral dysregulation and restless. Presentation seems to be consistent with delirium due to underlying medical conditions. Agree with Seroquel 12.5 mg twice a day, that could be increase to 25 twice a day and even 50 mg twice a day as needed. Remember to be careful with QTc interval, no longer than 460. Can add Haldol 2 mg IM every 8 hours when necessary aggressive behavior and agitation. If behavioral dysregulation and agitation persist beyond medical clearance psychiatric hospitalization can be recommended to help with stabilization and safety. We'll follow-up. Assessment & Plan Estimated LOS: days Андрей Honeycutt MD Apr 24, 2017 15:42
[2017-04-24] MEDS ORDERED: POTA10CA PO (16:26)
[2017-04-24] MEDS ORDERED: CEPH500C PO (16:34)
--- NOTE | 2017-04-24 16:39 | HHI.DS ---
Discharge Summary Admission Date Apr 22, 2017 at 12:06 Discharge Date: Apr 25, 2017 Admitting Diagnosis intractable pain; C 1 fracture-old; chronic leukocytosis (1) Fall ICD Code: W19.XXXA - Unspecified fall, initial encounter (2) Intractable pain ICD Code: R52 - Pain, unspecified (3) C1 cervical fracture ICD Code: S12.000A - Unspecified displaced fracture of first cervical vertebra , initial encounter for closed fracture (4) Renal insufficiency ICD Code: N28.9 - Disorder of kidney and ureter, unspecified (5) Leukocytosis ICD Code: D72.829 - Elevated white blood cell count, unspecified (6) Hyperkalemia ICD Code: E87.5 - Hyperkalemia (7) Cellulitis ICD Code: L03.90 - Cellulitis, unspecified Status: Acute (8) Dementia ICD Code: F03.90 - Unspecified dementia without behavioral disturbance (9) Physical deconditioning ICD Code: R53.81 - Other malaise Status: Acute Procedures None Brief History - From Admission This is an 86-year-old female with a PMH of HTN, Hyperlipidemia, Dementia, CHF ( Unknown EF), Hypothyroidism and Recurrent Falls was sent to the ER from [facility] secondary to witnessed fall. Pt unable to provide much history, AA&O x1 at baseline. On arrival, BP 152/69, HR 64, O2 sat 98% on RA, Afebrile. K+ 5.4. Creatinine 1.47, previously 1.72 on 10/21/16. Trop negative. INR 1.0. UA negative. CXR with no acute findings. CT Head with no acute findings, stable calcified meningioma and suprasellar mass. CT C-spine with C1 fracture, mild distraction of 3-[address] Barney consulted by ER physician, findings thought to be more chronic in nature, recommendation for C-Collar and outpatient follow up. CT Abd/Pelvis w/ retroperitoneal and periportal adenopathy of concern for lymphoma. Per report, family does not wish to pursue aggressive intervention. While in ER, pt w/ significant pain complaints, unable to ambulate, unsafe d/c home. CBC/BMP: 04/23/17 0914 04/24/17 0845 Significant Findings Laboratory Tests Test 04/22/17 04:08 04/23/17 09:14 04/24/17 08:45 White Blood Count 34.6 TH/MM3 (4.0-11.0) 31.6 TH/MM3 (4.0-11.0) Red Blood Count 3.89 MIL/MM3 (4.00-5.30) 3.88 MIL/MM3 (4.00-5.30) Hemoglobin 10.7 GM/DL (11.6-15.3) 10.6 GM/DL (11.6-15.3) Hematocrit 33.0 % (35.0-46.0) 33.0 % (35.0-46.0) Lymphocytes (%) (Auto) 68.3 % (9.0-44.0) 71.0 % (9.0-44.0) Neutrophils # (Auto) 9.7 TH/MM3 (1.8-7.7) 7.8 TH/MM3 (1.8-7.7) Lymphocytes # (Auto) 23.6 TH/MM3 (1.0-4.8) 22.4 TH/MM3 (1.0-4.8) Monocytes # (Auto) 1.1 TH/MM3 (0-0.9) 1.0 TH/MM3 (0-0.9) Lymphocytes % 76 % (9-44) 70 % (9-44) Neutrophils # (Manual) 8.0 TH/MM3 (1.8-7.7) Ovalocytes 1+ (NORMAL) 1+ (NORMAL) Acanthocytes 1+ (NORMAL) Blood Urea Nitrogen 36 MG/DL (7-18) 20 MG/DL (7-18) Total Protein 5.7 GM/DL (6.4-8.2) Albumin 2.9 GM/DL (3.4-5.0) Estimat Glomerular Filtration Rate 61 ML/MIN (>89) 61 ML/MIN (>89) Random Glucose 72 MG/DL (74-106) Calcium Level 7.9 MG/DL (8.5-10.1) Potassium Level 3.3 MEQ/L (3.5-5.1) Chloride Level 109 MEQ/L (98-107) 108 MEQ/L (98-107) Imaging Last Impressions Pelvis X-Ray 04/21/17112 Signed Impressions: Service Date/Time: Friday, April 21, 2017 01:18 - CONCLUSION: 1. Osteopenia with no acute fracture or malalignment. 2. Degenerative disc change and scoliosis in the lower lumbar spine. Gustabo Hudson MD Head CT 04/21/17112 Signed Impressions: Service Date/Time: Friday, April 21, 2017 02:43 - CONCLUSION: 1. No acute hemorrhage or mass effect. 2. Stable calcified meningioma. 3. Stable sellar and suprasellar mass. Gustabo Hudson MD Chest X-Ray 04/21/17112 Signed Impressions: Service Date/Time: Friday, April 21, 2017 01:17 - CONCLUSION: No acute cardiopulmonary disease. Gustabo Hudson MD Cervical Spine CT 04/21/17112 Signed Impressions: Service Date/Time: Friday, April 21, 2017 02:43 - CONCLUSION: 1. A fracture deformity of the right side of the anterior arch of C1 is now noted which was not present on the prior study with mild distraction of 3-4 mm. The atlantoaxial relationship remains is maintained. There are degenerative changes in the atlantoaxial joint with chronic deformity of the dens which is increased. 2. Extensive degenerative disc and joint changes are noted. There are no additional fractures. 3. Stable anterior spondylolisthesis of C6 on C7 and C7 on T1. Gustabo Hudson MD Abdomen/Pelvis CT 04/21/17112 Signed Impressions: Service Date/Time: Friday, April 21, 2017 02:50 - CONCLUSION: 1. No evidence of acute visceral injury. 2. Retroperitoneal and periportal adenopathy of concern for lymphoma. 3. Right renal angiomyolipoma. 4. Abnormal gallbladder with higher density regions which may represent gallstones. The gallbladder appears partially contracted. Gustabo Hudson MD PE at Discharge GENERAL: Well-nourished, well-developed pleasantly confused elderly female patient in NAD. Asleep in bed, easily awakens to voice. In soft restraints. SKIN: Warm and dry. (+)chronic venous status changes noted BLE, tender to palpation with associated warmth and erythema. Right ankle and lower segura dressed which is C/D/I. HEENT: Normocephalic. Atraumatic. Pupils equal and round. Mucous membranes pink and moist. NECK: [place] J brace in place. CARDIOVASCULAR: Regular rate and rhythm. S1, S2 noted. No murmur appreciated. RESPIRATORY: No accessory muscle use. Clear to auscultation. Breath sounds equal bilaterally. GASTROINTESTINAL: Abdomen soft, non-tender, nondistended. Normoactive bowel sounds x4. MUSCULOSKELETAL: Trace edema BLE. NEUROLOGICAL: Awake and alert, oriented to self and hospital only. No obvious cranial nerve deficits. Able to move all extremities spontaneously. Normal speech. PSYCHIATRIC: Pleasantly confused mood; insight and judgment limited. Pt update on day of discharge Patient seen and examined. Patient has removed her cervical collar. Patient complaining of headache. She denies any other complaints at this time. Discussed with nursing staff - patient refusing to wear cervical collar. Hospital Course 86-year-old female with a PMH of HTN, Hyperlipidemia, Dementia, CHF (Unknown EF) , Hypothyroidism and Recurrent Falls was sent to the ER from [facility] secondary to witnessed fall. Pt unable to provide much history, AA&O x1 at baseline. Fall: witnessed fall while at [facility], CT Head w/ no acute findings, CXR negative -PT eval and treat, PT recommends rehab/snf for PT -Case management assisting with discharge planning -Fall risk Dementia with behavioral disturbance -patient remains in restraints due to repetitively attempting to get out of bed unassisted and takeoff [place] collar. -Consult Psychiatry - pending. Will discuss if patient is a possible candidate for transfer to med/psych. -continue low-dose Seroquel at bedtime -B12 and TSH WNL. RPR nonreactive. C1 Fracture: CT C-Spine w/ C1 fracture, images reviewed by me, Dr. Barney consulted by ER physician, recommended C-Collar w/ outpatient follow up. 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 -Analgesics/antiemetics as needed. -Needs rehab ERIC: Creatinine 1.47 upon arrival. U/a negative. -Given IVF for hydration, caution w/ h/o CHF. -Repeat labs show improvement with Cr 0.88. Resolved. Stop IVF. -recheck BMP in am due to restarting Lisinopril and continuing on Bumex. Leukocytosis: Chronic. WBC 48, previously 32 on 10/21/16. CT Abd/Pelvis w/ adenopathy suggestive of lymphoma. -Per report, family does not wish to proceed w/ aggressive intervention. Monitor as outpatient. HTN -episode of hypotension with IV Morphine, resolved. D/C IV Morphine. -continue home Atenolol and Lisinopril with parameters -monitor BP CHF -not decompensated -continue medications as above -continue on home dose of Bumex and Spirolactone. Resume KCL but at lower dose. Monitor electrolytes. -monitor for signs of fluid overload -strict I&Os, daily wts Hypokalemia -resolved s/p repletion -mag level 2.2 -continue home K dose -monitor K closely Bilateral Lower Extremity Cellulitis: -continue on Keflex 500mg q8h -Wound care nurse consulted, appreciate recommendations. Continue wound care. -monitor for improvement Hypothyroidism -Patient continue on home dose of levothyroxine -TSH level WNL DVT Prophylaxis: Heparin sq Discussed with patient, nursing staff and Dr. Hernandez Pt Condition on Discharge: Stable Discharge Disposition: Disc to Psych Care Fac Discharge Time: > 30 minutes Discharge Instructions DIET: Follow Instructions for: Heart Healthy Diet Activities you can perform: See Additionl Instruction Other Activity Instructions: Patient must have [place] Collar on at all times Follow up Referrals: Neurosurgery - 1 Week with Cristhian Barney MD PCP Follow-up - 2-3 Days New Medications: Wheelchair Elevated Leg (Wheelchair Elevated Leg) 1 Mis Mis EA .ROUTE DIRECTED, #1 0 Refills Cephalexin (Cephalexin) 500 Mg Cap 500 MG PO Q8HR for Infection for 2 Days, #6 CAP Potassium Chloride ER (Potassium Chloride ER) 10 Meq Cap 10 MEQ PO DAILY for Electrolyte Replacement for 30 Days, #30 CAP Continued Medications: Acetaminophen (Tylenol) 325 Mg Tab 650 MG PO Q12HR PRN for PAIN SCALE 1 TO 10, TAB 0 Refills Atenolol (Atenolol) 25 Mg Tab 25 MG PO DAILY NEB for Blood Pressure Management, #30 TAB Atenolol (Atenolol) 25 Mg Tab 25 MG PO HS for Blood Pressure Management, #30 TAB Bumetanide (Bumetanide) 2 Mg Tab 2 MG PO BID, TAB 0 Refills Calcium Carbonate (Antacid) (Tums E-X 750) 750 Mg Chew 750 MG CHEW PRN for HEARTBURN, TAB 0 Refills Cholecalciferol (Vitamin D3) 2,000 Unit Cap 2000 UNITS PO DAILY for Nutritional Supplement, #1 BOTTLE 0 Refills Dextromethorphan-Guaifenesin (Robitussin Peak Cold Dm 100-10 mg/5Ml) 1 Syp Syp 5 ML PO Q4HR PRN for COUGH Furosemide (Lasix) 40 Mg Tab 40 MG PO DAILY, #30 TAB 0 Refills Gemfibrozil (Gemfibrozil) 600 Mg Tab 600 MG PO BIDAC, #60 TAB 0 Refills Take 30 minutes prior to breakfast and dinner. Levothyroxine (Levothyroxine) 75 Mcg Tab 75 MCG PO DAILY for Thyroid, #30 TAB 0 Refills Lisinopril (Lisinopril) 2.5 Mg Tab 2.5 MG PO DAILY, #30 TAB 0 Refills Loperamide (Imodium A-D) 2 Mg Capsule 2 MG PO DIRECTED PRN for DIARRHEA, CAP 0 Refills One capsule after each loose stool. Not to exceed 8 tablets per day. Multiple Vitamins W/ Minerals (Certavite Senior/Antioxid) 1 Tab Tab 1 TAB PO DAILY Omeprazole (Omeprazole) 40 Mg Cap 40 MG PO DAILY, #30 CAP 0 Refills Spironolactone (Spironolactone) 25 Mg Tab 12.5 MG PO DAILY, #15 TAB 0 Refills Venlafaxine (Effexor) 37.5 Mg Tab 37.5 MG PO Q12H, #60 TAB 0 Refills Zinc Oxide (Topical) (Zinc Oxide) 20 % Oin Unknown Dose TOPICAL BID PRN for RASH Discontinued Medications: Potassium Chloride ER (Potassium Chloride ER) 10 Meq Cap 10 MEQ PO BID for Electrolyte Replacement, #60 CAP 0 Refills Sushma Garcia Apr 24, 2017 16:39
[2017-04-24] MEDS: ATENOLOL 25 MG TAB PO SCH (21:41)
[2017-04-24] MEDS: QUEtiapine FUMARATE 25 MG TAB PO SCH (21:46)
[2017-04-24 22:25] VITALS: BP 146/63; PULSE 76; RESP 21; TEMP 97.9; O2SAT 98
[2017-04-25] VITALS: BP 110/59; PULSE 59; RESP 24; TEMP 97.9; O2SAT 96
[2017-04-25 04:00] VITALS: BP 120/84; PULSE 68; RESP 18; TEMP 98.4; O2SAT 97
[2017-04-25] MEDS: LEVOTHYROXINE SODIUM 75 MCG TAB PO SCH (06:03)
[2017-04-25] MEDS: CEPHALEXIN MONOHYDRATE 500 MG CAP PO SCH ×2 (06:04→12:57)
[2017-04-25] MEDS: ACETAMINOPHEN/HYDROcodone 325 MG/5 MG TAB PO PRN (06:04)
[2017-04-25] MEDS: GEMFIBROZIL 600 MG TAB PO SCH (06:04)
[2017-04-25 08:00] VITALS: BP 113/56; PULSE 73; RESP 18; TEMP 97.9; O2SAT 96
[2017-04-25] MEDS: BUMETANIDE 1 MG TAB PO SCH (08:58)
[2017-04-25] MEDS: MULTIVITAMINS/MINERALS THERAPEUTIC TAB PO SCH (08:58)
[2017-04-25] MEDS: PANTOPRAZOLE SOD 40 MG DELAYED RELEASE TAB PO SCH (08:59)
[2017-04-25] MEDS: SPIRONOLACTONE 25 MG TAB PO SCH (08:59)
[2017-04-25] MEDS: DOCUSATE SODIUM 50 MG/SENNA 8.6 MG TAB PO SCH (09:00)
[2017-04-25] MEDS: LISINOPRIL 5 MG TAB PO SCH (09:00)
[2017-04-25] MEDS: SODIUM CHLORIDE 0.9% FLUSH 10 ML FLUSH IV FLUSH SCH (09:00)
[2017-04-25] MEDS ORDERED: POTASSIUM CHLORIDE 10 MEQ CAP PO SCH (09:00)
[2017-04-25] MEDS: VENLAFAXINE HCL XR 37.5 MG CAP PO SCH (09:00)
[2017-04-25] MEDS: HEPARIN SODIUM - SQ 10,000 UNITS/ML VIAL SQ SCH (09:06)
[2017-04-25] MEDS ORDERED: HALOPERIDOL LACTATE 5 MG/ML AMP IM ONE (10:00)
--- NOTE | 2017-04-25 10:21 | HHI.PR ---
Subjective Remarks Follow up on patient with C1 fracture. Patient seen and examined. Patient has removed her cervical collar. Patient complaining of headache. She denies any other complaints at this time. Discussed with nursing staff - patient refusing to wear cervical collar. Objective Vitals Vital Signs Date Time Temp Pulse Resp B/P (MAP) Pulse Ox O2 Delivery O2 Flow Rate FiO2 04/25/17 08:00 97.9 73 18 113/56 (75) 96 04/25/17 04:00 98.4 68 18 120/84 (96) 97 04/25/17 00:00 97.9 59 24 110/59 (76) 96 04/24/17 22:25 97.9 76 21 146/63 (90) 98 04/24/17 12:00 97.6 74 16 116/58 (77) 96 I/O 04/24/17 04/24/17 04/24/17 04/25/17 04/25/17 04/25/17 07:00 15:00 23:00 07:00 15:00 23:00 # Voids 1 1 3 # Bowel Movements 1 2 Result Diagram: 04/23/17 0914 04/24/17 0845 Imaging Last Impressions Pelvis X-Ray 04/21/17112 Signed Impressions: Service Date/Time: Friday, April 21, 2017 01:18 - CONCLUSION: 1. Osteopenia with no acute fracture or malalignment. 2. Degenerative disc change and scoliosis in the lower lumbar spine. Gustabo Hudson MD Head CT 04/21/17112 Signed Impressions: Service Date/Time: Friday, April 21, 2017 02:43 - CONCLUSION: 1. No acute hemorrhage or mass effect. 2. Stable calcified meningioma. 3. Stable sellar and suprasellar mass. Gustabo Hudson MD Chest X-Ray 04/21/17112 Signed Impressions: Service Date/Time: Friday, April 21, 2017 01:17 - CONCLUSION: No acute cardiopulmonary disease. Gustabo Hudson MD Cervical Spine CT 04/21/17112 Signed Impressions: Service Date/Time: Friday, April 21, 2017 02:43 - CONCLUSION: 1. A fracture deformity of the right side of the anterior arch of C1 is now noted which was not present on the prior study with mild distraction of 3-4 mm. The atlantoaxial relationship remains is maintained. There are degenerative changes in the atlantoaxial joint with chronic deformity of the dens which is increased. 2. Extensive degenerative disc and joint changes are noted. There are no additional fractures. 3. Stable anterior spondylolisthesis of C6 on C7 and C7 on T1. Gustabo Hudson MD Abdomen/Pelvis CT 04/21/17 0113 Signed Impressions: Service Date/Time: Friday, April 21, 2017 02:50 - CONCLUSION: 1. No evidence of acute visceral injury. 2. Retroperitoneal and periportal adenopathy of concern for lymphoma. 3. Right renal angiomyolipoma. 4. Abnormal gallbladder with higher density regions which may represent gallstones. The gallbladder appears partially contracted. Gustabo Hudson MD Objective Remarks GENERAL: Well-nourished, well-developed pleasantly confused elderly female patient in NAD. Sitting up in bed. [place] Collar is off. Patient not in restraints. SKIN: Warm and dry. (+)chronic venous status changes noted BLE, tender to palpation with associated warmth and erythema, improving. Right ankle and lower segura dressed which is C/D/I. HEENT: Normocephalic. Atraumatic. Pupils equal and round. Mucous membranes pink and moist. NECK: [place] J brace in place. CARDIOVASCULAR: Regular rate and rhythm. S1, S2 noted. No murmur appreciated. RESPIRATORY: No accessory muscle use. Clear to auscultation. Breath sounds equal bilaterally. GASTROINTESTINAL: Abdomen soft, non-tender, nondistended. Normoactive bowel sounds x4. MUSCULOSKELETAL: Trace edema BLE. NEUROLOGICAL: Awake and alert, oriented to self and hospital only. No obvious cranial nerve deficits. Able to move all extremities spontaneously. Normal speech. PSYCHIATRIC: Pleasantly confused mood; insight and judgment limited. Procedures None Medications and IVs Current Medications Medications (Trade) Dose Ordered Sig/Feliciano Route Start Time Stop Time Status Last Admin (NS Flush) 2 ml UNSCH PRN IV FLUSH 04/21/17 06:00 (NS Flush) 2 ml BID IV FLUSH 04/21/17 09:00 04/25/17 09:00 (Zofran Inj) 4 mg Q6H PRN IVP 04/21/17 06:00 (Tylenol) 650 mg Q6H PRN PO 04/21/17 06:00 04/25/17 09:16 ([place] 5-325 Mg) 1 tab Q4H PRN PO 04/21/17 06:00 04/25/17 06:04 (Abigail-Colace) 1 tab BID PO 04/21/17 09:00 04/25/17 09:00 (Milk Of Magnesia Liq) 30 ml Q12H PRN PO 04/21/17 06:00 (Senokot) 17.2 mg Q12H PRN PO 04/21/17 06:00 (Dulcolax Supp) 10 mg DAILY PRN RECTAL 04/21/17 06:00 (Lactulose Liq) 30 ml DAILY PRN PO 04/21/17 06:00 (Bumetanide) 2 mg BID PO 04/21/17 09:00 04/25/17 08:58 (Lopid) 600 mg BIDAC PO 04/21/17 07:00 04/25/17 06:04 (Synthroid) 75 mcg DAILY@0600 PO 04/21/17 06:00 04/25/17 06:03 (Aldactone) 12.5 mg DAILY PO 04/21/17 09:00 04/25/17 08:59 (Theragran M Tab) 1 tab DAILY PO 04/21/17 09:00 04/25/17 08:58 (Protonix) 40 mg DAILY PO 04/21/17 09:00 04/25/17 08:59 (Effexor Xr) 37.5 mg DAILY PO 04/21/17 09:00 04/25/17 09:00 (Heparin Inj) 5,000 units Q12HR SQ 04/22/17 09:00 04/25/17 09:06 (Keflex) 500 mg Q8HR PO 04/22/17 14:00 04/25/17 12:57 (SEROquel) 12.5 mg HS PO 04/23/17 21:00 04/24/17 21:46 (Tenormin) 25 mg HS PO 04/23/17 21:00 04/24/17 21:41 (Pill Splitter) 1 ea UNSCH PRN OTHER 04/23/17 12:15 (Prinivil) 2.5 mg DAILY PO 04/24/17 09:00 04/24/17 09:54 (KCl) 10 meq DAILY PO 04/25/17 09:00 04/25/17 08:59 A/P Problem List: (1) Fall ICD Code: W19.XXXA - Unspecified fall, initial encounter (2) Intractable pain ICD Code: R52 - Pain, unspecified (3) C1 cervical fracture ICD Code: S12.000A - Unspecified displaced fracture of first cervical vertebra , initial encounter for closed fracture (4) Renal insufficiency ICD Code: N28.9 - Disorder of kidney and ureter, unspecified (5) Leukocytosis ICD Code: D72.829 - Elevated white blood cell count, unspecified (6) Hyperkalemia ICD Code: E87.5 - Hyperkalemia (7) Cellulitis ICD Code: L03.90 - Cellulitis, unspecified Status: Acute (8) Dementia ICD Code: F03.90 - Unspecified dementia without behavioral disturbance (9) Physical deconditioning ICD Code: R53.81 - Other malaise Status: Acute Assessment and Plan 86-year-old female with a PMH of HTN, Hyperlipidemia, Dementia, CHF (Unknown EF) , Hypothyroidism and Recurrent Falls was sent to the ER from [facility] secondary to witnessed fall. Pt unable to provide much history, AA&O x1 at baseline. Fall: witnessed fall while at [facility], CT Head w/ no acute findings, CXR negative -PT eval and treat, PT recommends rehab/snf for PT -Consult OT -Fall risk Dementia with behavioral disturbance -patient remains in restraints due to repetitively attempting to get out of bed unassisted and takeoff [place] J collar. Haldol x 1 dose ordered. -Consult Neurosurgery to assess ongoing need for [place] Collar, appreciate assistance/recommendations. -Psychiatry following, appreciate assistance/recommendations. D/W Dr. Honeycutt who is agreeable to transferring patient to med/psych. Planned for discharge pending psychiatry reassessment and acceptance. -continue low-dose Seroquel at bedtime -B12 and TSH WNL. RPR nonreactive. C1 Fracture: CT C-Spine w/ C1 fracture, images reviewed by me, Dr. Barney consulted by ER physician, recommended C-Collar w/ outpatient follow up. -Continue [place] J collar -Analgesics/antiemetics as needed. -Neurosurgery consulted ERIC: Creatinine 1.47 upon arrival. U/a negative. -Given IVF for hydration, caution w/ h/o CHF. -Repeat labs show improvement with Cr 0.88. Resolved. Stop IVF. -recheck BMP in am due to restarting Lisinopril and continuing on Bumex - 6am ordered labs not drawn as of yet. Leukocytosis: Chronic. WBC 48, previously 32 on 10/21/16. CT Abd/Pelvis w/ adenopathy suggestive of lymphoma. -Per report, family does not wish to proceed w/ aggressive intervention. Monitor as outpatient. HTN -episode of hypotension with IV Morphine, resolved. D/C IV Morphine. -continue home Atenolol and Lisinopril with parameters -monitor BP CHF -not decompensated -continue medications as above -continue on home dose of Bumex and Spirolactone. Resume KCL but at lower dose. Monitor electrolytes. -monitor for signs of fluid overload -strict I&Os, daily wts Hypokalemia -resolved s/p repletion -mag level 2.2 -continue home K dose -monitor K closely Bilateral Lower Extremity Cellulitis: -continue on Keflex 500mg q8h -Wound care nurse consulted, appreciate recommendations. Continue wound care. -monitor for improvement Hypothyroidism -Patient continue on home dose of levothyroxine -TSH level WNL DVT Prophylaxis: Heparin sq Discussed with patient, nursing staff and Dr. Hernandez Discharge Planning Patient is unsafe discharge back to [facility], needs SNF/rehab. Possible discharge to med/psych later today. Problem Qualifiers (1) Fall: Qualified Codes: W19.XXXA - Unspecified fall, initial encounter (2) C1 cervical fracture: Qualified Codes: S12.091A - Other nondisplaced fracture of first cervical vertebra, initial encounter for closed fracture Sushma Garcia Apr 25, 2017 10:21
--- NOTE | 2017-04-25 12:38 | PD.CONS ---
HPI Service Neurosurgery Consult Requested By Reason for Consult C1 fracture Primary Care Physician Non-Staff History of Present Illness This is an 86-year-old female with history of arterial hypertension, Hyperlipidemia, Dementia, CHF, Hypothyroidism and Recurrent Falls was sent to the ER from [facility] secondary to witnessed fall. Pt unable to provide much history , AA&O x1 at baseline. On arrival, BP 152/69, HR 64, O2 sat 98% on RA, Afebrile. K+ 5.4. Creatinine 1.47, previously 1.72 on 10/21/16. Trop negative. INR 1.0. UA negative. CXR with no acute findings. CT Head with no acute findings, stable calcified meningioma and suprasellar mass. CT C-spine with C1 fracture, mild distraction of 3-[address] Abd/Pelvis w/ retroperitoneal and periportal adenopathy of concern for lymphoma. Neurosurgical consultation was requested Past Family Social History Allergies: Coded Allergies: rivastigmine (Unverified Allergy, Severe, stomach ulcers, 04/21/17) amlodipine (Unverified Allergy, Intermediate, muscle pain, 04/21/17) atorvastatin (Unverified Allergy, Intermediate, muscle pain, 04/21/17) pravastatin (Unverified Allergy, Intermediate, muscle pain, 04/21/17) simvastatin (Unverified Allergy, Intermediate, muscle pain, 04/21/17) aspirin (Unverified Adverse Reaction, Severe, bleeding ulcers, 04/21/17) Past Medical History Arterial hypertension Hyperlipidemia, Dementia, CHF Hypothyroidism Past Surgical History Right Arm Surgery Active Ordered Medications Current Medications Sodium Chloride (NS Flush) 2 ml UNSCH PRN IVF FLUSH AFTER USING IV ACCESS; Start 04/21/17 at 01:15; Stop 04/24/17 at 11:20; Status DC Iodixanol (VISIPAQUE 320 INJ (Rad CT)) 46 ml STK-MED ONCE IVCONTRAST Last administered on 04/21/17t 03:07; Start 04/21/17 at 03:07; Stop 04/21/17 at 03 :08; Status DC Sodium Chloride 500 ml @ 500 mls/hr BOLUS ONCE IV Last administered on 05:48; Start 04/21/17 at 04:15; Stop 04/21/17 at 05:14; Status DC Sodium Chloride 1,000 ml @ 75 mls/hr [id number] IV Last administered on 07:47; Start 04/21/17 at 05:47; Stop 04/23/17 at 14:48; Status DC Sodium Chloride (NS Flush) 2 ml UNSCH PRN IV FLUSH FLUSH AFTER USING IV ACCESS ; Start 04/21/17 at 06:00 Sodium Chloride (NS Flush) 2 ml BID IV FLUSH Last administered on 04/25/17 09 :00; Start 04/21/17 at 09:00 Ondansetron HCl (Zofran Inj) 4 mg Q6H PRN IVP NAUSEA OR VOMITING; Start at 06:00 Acetaminophen (Tylenol) 650 mg Q6H PRN PO FEVER/PAIN SCALE 1 TO 2 Last administered on 04/25/17 09:16; Start 04/21/17 at 06:00 Acetaminophen/ Hydrocodone Bitart ([place] 5-325 Mg) 1 tab Q4H PRN PO PAIN SCALE 3 TO 5 Last administered on 04/25/17 06:04; Start 04/21/17 at 06:00 Morphine Sulfate (Morphine Inj) 2 mg Q3H PRN IV PUSH Pain 6-10; Start at 06:00; Stop 04/21/17 at 06:11; Status DC Senna/Docusate Sodium (Abigail-Colace) 1 tab BID PO Last administered on 09:00; Start 04/21/17 at 09:00 Magnesium Hydroxide (Milk Of Magnesia Liq) 30 ml Q12H PRN PO Mild constipation ; Start 04/21/17 at 06:00 Sennosides (Senokot) 17.2 mg Q12H PRN PO Moderate constipation; Start at 06:00 Bisacodyl (Dulcolax Supp) 10 mg DAILY PRN RECTAL SEVERE CONSITIPATION; Start 04/21/17 at 06:00 Lactulose (Lactulose Liq) 30 ml DAILY PRN PO SEVERE CONSITIPATION; Start 04/21 at 06:00 Bumetanide (Bumetanide) 2 mg BID PO Last administered on 04/25/17 08:58; Start 04/21/17 at 09:00 Gemfibrozil (Lopid) 600 mg BIDAC PO Last administered on 04/25/17 06:04; Start 04/21/17 at 07:00 Levothyroxine Sodium (Synthroid) 75 mcg DAILY@0600 PO Last administered on 06:03; Start 04/21/17 at 06:00 Spironolactone (Aldactone) 12.5 mg DAILY PO Last administered on 04/25/17 08: 59; Start 04/21/17 at 09:00 Multivitamins/ Minerals Therapeutic (Theragran M Tab) 1 tab DAILY PO Last administered on 04/25/17 08:58; Start 04/21/17 at 09:00 Pantoprazole Sodium (Protonix) 40 mg DAILY PO Last administered on 04/25/17 08:59; Start 04/21/17 at 09:00 Venlafaxine HCl (Effexor Xr) 37.5 mg DAILY PO Last administered on 04/25/17 09:00; Start 04/21/17 at 09:00 Morphine Sulfate (Morphine Inj) 2 mg Q3H PRN IV PAIN SCALE 6 TO 10; Start at 06:15; Stop 04/24/17 at 12:25; Status DC Heparin Sodium (Porcine) (Heparin Inj) 5,000 units Q12HR SQ Last administered on 04/25/17 09:06; Start 04/22/17 at 09:00 Cephalexin Monohydrate (Keflex) 500 mg Q8HR PO Last administered on 04/25/17 06:04; Start 04/22/17 at 14:00 Quetiapine Fumarate (SEROquel) 12.5 mg HS PO Last administered on 04/24/17 21 :46; Start 04/23/17 at 21:00 Potassium Bicarbonate (Effer-K Eff) 25 meq ONCE ONCE PO Last administered on 04/23/17 11:45; Start 04/23/17 at 11:45; Stop 04/23/17 at 12:00; Status DC Atenolol (Tenormin) 25 mg HS PO Last administered on 10/25/17at 21:41; Start 04/23/17 at 21:00 Potassium Chloride (KCl) 10 meq BID PO Last administered on 04/24/17 09:54; Start 04/23/17 at 21:00; Stop 04/24/17 at 14:35; Status DC Miscellaneous (Pill Splitter) 1 ea UNSCH PRN OTHER SEE LABEL COMMENTS; Start 04/23/17 at 12:15 Lisinopril (Prinivil) 2.5 mg DAILY PO Last administered on 04/24/17 09:54; Start 04/24/17 at 09:00 Potassium Chloride (KCl) 10 meq DAILY PO Last administered on 04/25/17 08:59 ; Start 04/25/17 at 09:00 Haloperidol Lactate (Haldol Inj) 1 mg ONCE ONCE IM Last administered on 10:00; Start 04/25/17 at 10:00; Stop 04/25/17 at 10:01; Status DC Family History Her family history was reviewed and was found to be noncontributory to these traumatic event Social History Negative for cough, tobacco or drugs. Physical Exam Vital Signs Vital Signs Date Time Temp Pulse Resp B/P (MAP) Pulse Ox O2 Delivery O2 Flow Rate FiO2 04/25/17 08:00 97.9 73 18 113/56 (75) 96 04/25/17 04:00 98.4 68 18 120/84 (96) 97 04/25/17 00:00 97.9 59 24 110/59 (76) 96 04/24/17 22:25 97.9 76 21 146/63 (90) 98 Physical Exam The patient is alert, awake and oriented to place and person. Speech is fluent. poor memory, insight, and comprehension Cranial nerve examination demonstrates the pupils to be equal, round, and reactive to light. Extra-ocular movements are intact. Facial motor and sensory function are normal and symmetrical. Gross hearing is decreased bilaterally. The uvula is midline and elevates symmetrically with the soft palate. Sternocleidomastoid and trapezius muscles have normal and symmetrical strength. Other cranial nerves are intact. Cervical spine has been immobilized with a [place] collar. Tenderness to palpation of the posterior elements of the neck Muscle testing reveals normal bulk and tone overall without rigidity, spasticity , fasciculations, or atrophy. Muscle strength is 5/5 in all muscle groups of both upper extremities including deltoid, biceps, triceps, brachioradialis, wrist extension and abrasive grinder. In the lower extremities, strength is 5/5 in both iliopsoas, quadriceps, hamstrings, plantar flexion, dorsiflexion, and extensor hallicus longus. Sensory examination is intact to light touch and sharp/dull discrimination in both the upper and lower extremities, symmetrically. Deep tendon reflexes are 1+ and symmetrical in the biceps, triceps, and brachioradialis, bilaterally, in the upper extremities. In the lower extremities , the patellar and Achilles are 1+, bilaterally. There is a bilateral plantar flexion response. Hoffmanns sign is negative. There is no clonus Cerebellar examination is intact to [id number] test, rapid rhythmic alternating motion. There is no dysmetria, dysdiadochokinesia, truncal ataxia Result Diagram: 04/23/17 0914 04/24/[address] C spine reviewed CT brain reviewed Chest x-ray was reviewed CT of the abdomen and pelvis have been reviewed Course Caprini VTE Risk Assessment Caprini VTE Risk Assessment: No/Low Risk (score <= 1) Caprini Risk Assessment Model Point Value = 1 Point Value = 2 Point Value = 3 Point Value = 5 Age 41-60 Minor surgery BMI > 25 kg/m2 Swollen legs Varicose veins or History of unexplained or recurrent spontaneous Oral contraceptives or hormone replacement Sepsis (< 1 month) Serious lung disease, including pneumonia (< 1 month) Abnormal pulmonary function Acute myocardial infarction Congestive heart failure (< 1 month) History of inflammatory bowel disease Medical patient at bed rest Age 61-74 Arthroscopic surgery Major open surgery (> 45 min) Laparoscopic surgery (> 45 min) Malignancy Confined to bed (> 72 hours) Immobilizing plaster cast Central venous access Age >= 75 History of VTE Family history of VTE Factor V Leiden Prothrombin [id number] Lupus anticoagulant Anticardiolipin antibodies Elevated serum homocysteine Heparin-induced thrombocytopenia Other congenital or acquired thrombophilia Stroke (< 1 month) Elective arthroplasty Hip, pelvis, or leg fracture Acute spinal cord injury (< 1 month) Prophylaxis Regimen Total Risk Factor Score Risk Level Prophylaxis Regimen 0-1 Low Early ambulation 2 Moderate Order ONE of the following: *Sequential Compression Device (SCD) *Heparin 5000 units SQ BID 3-4 Higher Order ONE of the following medications: *Heparin 5000 units SQ TID *Enoxaparin/Lovenox 40 mg SQ daily (WT < 150 kg, CrCl > 30 mL/min) *Enoxaparin/Lovenox 30 mg SQ daily (WT < 150 kg, CrCl > 10-29 mL/min) *Enoxaparin/Lovenox 30 mg SQ BID (WT < 150 kg, CrCl > 30 mL/min) AND/OR *Sequential Compression Device (SCD) 5 or more Highest Order ONE of the following medications: *Heparin 5000 units SQ TID (Preferred with Epidurals) *Enoxaparin/Lovenox 40 mg SQ daily (WT < 150 kg, CrCl > 30 mL/min) *Enoxaparin/Lovenox 30 mg SQ daily (WT < 150 kg, CrCl > 10-29 mL/min) *Enoxaparin/Lovenox 30 mg SQ BID (WT < 150 kg, CrCl > 30 mL/min) AND *Sequential Compression Device (SCD) Assessment and Plan Assessment and Plan Problem List: (1) Fall ICD Code: W19.XXXA - Unspecified fall, initial encounter (2) Intractable pain ICD Code: R52 - Pain, unspecified (3) C1 cervical fracture ICD Code: S12.000A - Unspecified displaced fracture of first cervical vertebra , initial encounter for closed fracture (4) Renal insufficiency ICD Code: N28.9 - Disorder of kidney and ureter, unspecified (5) Leukocytosis ICD Code: D72.829 - Elevated white blood cell count, unspecified (6) Hyperkalemia ICD Code: E87.5 - Hyperkalemia Attending Statement C1 cervical fracture. Continue neuro checks in a serial fashion. The alternative of treatment have been discussed with the patient. Recommend bracing the cervical spine with a [place] J collar. If the patient was younger and in the medical condition a surgical procedure could be beneficial, but is not a candidate for surgery at this time Renal insufficiency. Creatinine 1.47, previously 1.72 on 10/21/16. U/a negative. Monitor Strict I's and O's.. Careful judicious hydration. Follow up BUN and creatinine. Consider consulting a flatwork washer for prerenal kidney failure Leukocytosis. Monitor for signs of infection Intractabl;e neck pain. Analgesics/antiemetics as needed. CT Abd/Pelvis w/ adenopathy suggestive of lymphoma. Would defer workup to medical service. Dementia with agitation. Could be related to Alzheimer's disease. Would defer workup to neurologist. Consider consultation to psychiatrist Hyperkalemia: K+ 5.4, noted to have hemolysis. Will repeat labs in am. Diet. Ordered, internal nutrition ENDOCRINE: Monitor bedside glucose and initiate low-dose insulin sliding scale as indicated for glucose greater than 180 Protonix for stress ulcer prophylaxis Angel hose and SCD's for DVT prophylaxis. Graham Pool MD Apr 25, 2017 12:38
== END 2017-04-25 15:43 | DRG 552 ==
LOC: NEPC 00:49 → NEDA 05:46 → NEPGCP 07:17 → OBSVTOIN 04-22 12:06 → N05A 04-22 17:14
PROVIDERS: ADMIT Internal Medicine; ATTEND Internal Medicine
DX: S12.091A Other nondisplaced fracture of first cervical vertebra, initial encounter for closed fracture (principal); N17.9 Acute kidney failure, unspecified; F03.91 Unspecified dementia, unspecified severity, with behavioral disturbance; I95.2 Hypotension due to drugs; L03.115 Cellulitis of right lower limb; E87.5 Hyperkalemia; L03.116 Cellulitis of left lower limb; Z78.1 Physical restraint status; I73.9 Peripheral vascular disease, unspecified; F32.9 Major depressive disorder, single episode, unspecified; E03.9 Hypothyroidism, unspecified; E78.5 Hyperlipidemia, unspecified; I25.10 Atherosclerotic heart disease of native coronary artery without angina pectoris; G89.4 Chronic pain syndrome; K21.9 Gastro-esophageal reflux disease without esophagitis; I44.0 Atrioventricular block, first degree; T40.2X5A Adverse effect of other opioids, initial encounter; M43.12 Spondylolisthesis, cervical region; E87.6 Hypokalemia; W18.30XA Fall on same level, unspecified, initial encounter; Y92.099 Unspecified place in other non-institutional residence as the place of occurrence of the external cause
CPT/HCPCS: 70450; 71010; 72125; 72170; 74177; 80048; 80053; 81001; 82607; 83735; 84132; 84443; 84484; 85007; 85027; 85610; 85730; 86592; 86850; 86900; 86901; 93005; G8987-GP; G8988-GP; J1630; J1644; J7030; J7040; L0150; L0172; Q9967

== ENCOUNTER 2017-04-25 14:53 | Inpatient (IN) | payer OTHER, MEDICARE ==
[~2017-04-25] VITALS: Ht 160 cm; Wt 72.5 kg
[~2017-04-25 14:53] MED LIST changes: -ATEN100T PO; +ATEN25TA PO; +CEPH500C PO; +LISI2.5T3 PO; +WHEEMIS3
[2017-04-25 16:31] VITALS: BP 134/63; PULSE 68; RESP 17; TEMP 97.6; O2SAT 96
[2017-04-25] MEDS ORDERED: LORazepam 2 MG/ML VIAL IM PRN ×2 (17:15)
[2017-04-25] MEDS ORDERED: LORazepam 0.5 MG TAB PO PRN (17:15)
[2017-04-25] MEDS ORDERED: LORazepam 1 MG TAB PO PRN (17:15)
[2017-04-25] MEDS ORDERED: MAGNESIUM HYDROXIDE SUSP 30 ML CUP PO PRN (17:15)
[2017-04-25] MEDS ORDERED: ALUMINUM/MAGNESIUM/SIMETH 30 ML CUP PO PRN (17:15)
[2017-04-25] MEDS: FUROSEMIDE 40 MG TAB PO SCH (18:00)
[2017-04-25] MEDS: LISINOPRIL 5 MG TAB PO SCH (18:00)
[2017-04-25 18:21] VITALS: BP 134/63; PULSE 68; RESP 17; TEMP 97.6; O2SAT 95
[2017-04-25] MEDS: ACETAMINOPHEN 325 MG TAB PO PRN (21:24)
[2017-04-25] MEDS: ATENOLOL 25 MG TAB PO SCH (21:24)
[2017-04-26] MEDS: LEVOTHYROXINE SODIUM 75 MCG TAB PO SCH (05:55)
[2017-04-26 06:28] VITALS: BP 131/60; PULSE 69; RESP 16; TEMP 97.7; O2SAT 96
[2017-04-26] MEDS: VENLAFAXINE HCL XR 75 MG CAP PO SCH (08:36)
[2017-04-26] MEDS: SPIRONOLACTONE 25 MG TAB PO SCH (08:36)
[2017-04-26] MEDS: FUROSEMIDE 40 MG TAB PO SCH (08:37)
[2017-04-26] MEDS: LISINOPRIL 5 MG TAB PO SCH (08:37)
[2017-04-26] MEDS ORDERED: REMOVE OLD PATCH T-DERMAL SCH (09:00)
[2017-04-26] MEDS ORDERED: NICOTINE 21 MG/24 HR PATCH T-DERMAL SCH (09:00)
--- NOTE | 2017-04-26 11:25 | HHI.HP ---
Provisional Diagnosis Admission Date Apr 25, 2017 at 16:11 [place] I. 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 on, Apr 26, 2017 11:05. Express and informed consent means consent voluntarily given in writing, by a competent person, after sufficient explanation and disclosure of the subject matter involved to enable the person to make a knowing and willful decision without any element of force, fraud, deceit, duress, or other form of constraint or coercion. This person is 18 years of age or older, is not now known to be incompetent to consent to treatment with a guardian advocate, and does not have a health care surrogate or proxy currently making medical treatment decisions. I have found this person to be one of the following: [] Competent to provide express and informed consent, as defined above, for voluntary admission to this facility and is competent to provide express and informed consent for treatment. He/she has the consistent capacity to make well reasoned, willful, and knowing decisions concerning his or her medical or mental health treatment. The person fully and consistently understands the purpose of the admission for examination/placement and is fully capable of personally exercising all rights assured under [place]] Incompetent to provide express and informed consent to voluntary admission, and this is incompetent to provide express and informed consent to treatment. The person must be transferred to involuntary status and a petition for a guardian advocate filed with the Circuit Court. [] Refusing to provide express and informed consent to voluntary admission but is competent to provide express and informed consent for treatment. The person must be discharged or transferred to involuntary status. Form shall be completed within 24 hours of a person's arrival at the receiving facility and filed in the clinical record of each person: 1. Admitted on a voluntary basis 2. Permitted to provide express and informed consent to his/her own treatment 3. Allowed to transfer from involuntary to voluntary status 4. Prior to permitting a person to consent to his or her own treatment after having been previously found incompetent to consent to treatment. History of Present Illness Capacity: Lacks Capacity Psych Chief Complaint: patient went with increased agitation noncompliance with nurse her recommen HPI Patient is 86-year-old white female was initially admitted to surgical service at [place] on 04/22/17 under she sustained a witnessed fall at her longterm causing a fracture of C1, was consulted with neurosurgery recommended a [place] collar and follow-up. Attempts to place the Lamictal her left the patient's significant resistance agitation and fighting of the collar the point where she was placed in restraints, and a psychiatric consultation was requested. Patient is seen on 04/[address] Davison recommended scheduled Seroquel. Patient is brought to that unit at that admission on a voluntary basis. It appears there is no Concepcion act initiated at that time. Patient was transferred to the psychiatric unit for further care and assessment. Upon my assessment, patient being seen also with nurse Erica, patient is still severely demented appointed only to self, and is my opinion the patient does not have the capacity to sign voluntarily for admission. Thus I will do first opinion petition supporting Concepcion act, requesting a second opinion petition, I feel she does not have capacity we'll thus ask for healthcare surrogate and a guardian advocate. Counselor is in contact with patient's daughter related to this. We will also have hospitals consult with us. Will have a neurosurgery consult less. Patient is short statured with a short neck quite adamant in her dementia about refusing the large bulky collar. I need to find out if neurosurgery as an alternative that the patient may tolerate. Will also discontinue benzodiazepines with this lady, and Seroquel 25 mg twice a day. Patient seen today in her Radha chair in the day room with counselor Santa. Patient is alert oriented to self only but pleasantly feisty with me has no memory of falling complains of some diffuse headache and pain towards the back of her neck. She is moving all 4 extremities without difficulty. She denies any prior psychiatric hospitalization or contact her medication. Though she is on Effexor at the present time. She denies suicidality at this time denies voices. She gives confusing stories about her marriage with her is alive or and numb and children she has. It appears she has a lease 2 daughters out of state. In any event at the present time patient does meet criteria for inpatient psychiatric hospitalization I will do orders as mentioned above. We also need to clarify with the medical/surgical treatment team's recommendations were on the medical admit. We need to coordinate those with us Review of Systems ROS Limitations: Altered Mental Status Constitutional: DENIES: Diaphoretic episodes, Fatigue, Fever, Weight gain, Weight loss, Chills, Dizziness, Change in appetite, Night Sweats Endocrine: DENIES: Abnorml menstrual pattern, Heat/cold intolerance, Polydipsia , Polyuria, Polyphagia Eyes: DENIES: Blurred vision, Diplopia, Eye inflammation, Eye pain, Vision loss , Photosensitivity, Double Vision Ears, nose, mouth, throat: DENIES: Tinnitus, Hearing loss, Vertigo, Nasal discharge, Oral lesions, Throat pain, Hoarseness, Ear Pain, Running Nose, Epistaxis, Sinus Pain, Toothache, Odynophagia Respiratory: DENIES: Apneas, Cough, Snoring, Wheezing, Hemoptysis, Sputum production, Shortness of breath Cardiovascular: DENIES: Chest pain, Palpitations, Syncope, Dyspnea on Exertion , PND, Lower Extremity Edema, Orthopnea, Claudication Gastrointestinal: DENIES: Abdominal pain, Black stools, Bloody stools, Constipation, Diarrhea, Nausea, Vomiting, Difficulty Swallowing, Anorexia Genitourinary: DENIES: Abnormal vaginal bleeding, Dysmenorrhea, Dyspareunia, Sexual dysfunction, Urinary frequency, Urinary incontinence, Urgency, Hematuria , Dysuria, Nocturia, Vaginal discharge Musculoskeletal: DENIES: Joint pain, Muscle aches, Stiffness, Joint Swelling, Back pain, Neck pain Integumentary: DENIES: Abnormal pigmentation, Pruritus, Rash, Nail changes, Breast masses, Breast skin changes, Nipple discharge Hematologic/lymphatic: DENIES: Bruising, Lymphadenopathy Immunologic/allergic: DENIES: Eczema, Urticaria Neurologic: DENIES: Abnormal gait, Headache, Localized weakness, Paresthesias, Seizures, Speech Problems, Tremor, Poor Balance Psychiatric: DENIES: Anxiety, Confusion, Mood changes, Depression, Hallucinations, Agitation, Suicidal Ideation, Homicidal Ideation, Delusions Other Patient complains of a headache and neck pain. That was also documented on the previous hospitalization Past Psych History Psychological trauma history Unknown at this time due to patient's dementia Violence risk - others (6 mos) Alone at this time due to patient's dementia Violence risk - self (6 mos) Patient is fairly high fall risk Substance Abuse History Drugs/Alcohol past 12 months He should quite vague about this but states she occasionally likes a "vodka and tonics" Past Family Social History Coded Allergies: rivastigmine (Unverified Allergy, Severe, stomach ulcers, 04/21/17) amlodipine (Unverified Allergy, Intermediate, muscle pain, 04/21/17) atorvastatin (Unverified Allergy, Intermediate, muscle pain, 04/21/17) pravastatin (Unverified Allergy, Intermediate, muscle pain, 04/21/17) simvastatin (Unverified Allergy, Intermediate, muscle pain, 04/21/17) aspirin (Unverified Adverse Reaction, Severe, bleeding ulcers, 04/21/17) Past Medical History Patient medically cleared prior hospitalization under visit [id number] Active Scripts Cephalexin (Cephalexin) 500 Mg Cap, 500 MG PO Q8HR for Infection for 2 Days, #6 CAP Prov:Sushma Garcia 04/24/17 Potassium Chloride ER (Potassium Chloride ER) 10 Meq Cap, 10 MEQ PO DAILY for Electrolyte Replacement for 30 Days, #30 CAP Prov:Sushma Garcia 04/24/17 Wheelchair Elevated Leg (Wheelchair Elevated Leg) 1 Mis Mis, EA .ROUTE DIRECTED, #1 0 Refills Prov:Sushma Garcia 04/23/17 Reported Medications Lisinopril (Lisinopril) 2.5 Mg Tab, 2.5 MG PO DAILY, #30 TAB 0 Refills 04/21/17 Atenolol (Atenolol) 25 Mg Tab, 25 MG PO HS for Blood Pressure Management, #30 TAB 04/21/17 Atenolol (Atenolol) 25 Mg Tab, 25 MG PO DAILY NEB for Blood Pressure Management , #30 TAB 04/21/17 Zinc Oxide (Topical) (Zinc Oxide) 20 % Oin, TOPICAL BID Y for RASH 11/30/16 Cholecalciferol (Vitamin D3) 2,000 Unit Cap, 2000 UNITS PO DAILY for Nutritional Supplement, #1 BOTTLE 0 Refills 11/30/16 Dextromethorphan-Guaifenesin (Robitussin Peak Cold Dm 100-10 mg/5Ml) 1 Syp Syp, 5 ML PO Q4HR Y for COUGH 11/30/16 Furosemide (Lasix) 40 Mg Tab, 40 MG PO DAILY, #30 TAB 0 Refills 11/30/16 Loperamide (Imodium A-D) 2 Mg Capsule, 2 MG PO DIRECTED Y for DIARRHEA, CAP 0 Refills One capsule after each loose stool. Not to exceed 8 tablets per day. 11/30/16 Bumetanide (Bumetanide) 2 Mg Tab, 2 MG PO BID, TAB 0 Refills 11/30/16 Acetaminophen (Tylenol) 325 Mg Tab, 650 MG PO Q12HR Y for PAIN SCALE 1 TO 10, TAB 0 Refills 11/30/16 Multiple Vitamins W/ Minerals (Certavite Senior/Antioxid) 1 Tab Tab, 1 TAB PO DAILY 10/21/16 Omeprazole (Omeprazole) 40 Mg Cap, 40 MG PO DAILY, #30 CAP 0 Refills 10/21/16 Gemfibrozil (Gemfibrozil) 600 Mg Tab, 600 MG PO BIDAC, #60 TAB 0 Refills Take 30 minutes prior to breakfast and dinner. 10/21/16 Venlafaxine (Effexor) 37.5 Mg Tab, 37.5 MG PO Q12H, #60 TAB 0 Refills 10/21/16 Calcium Carbonate (Antacid) (Tums E-X 750) 750 Mg Chew, 750 MG CHEW Y for HEARTBURN, TAB 0 Refills 10/21/16 Levothyroxine (Levothyroxine) 75 Mcg Tab, 75 MCG PO DAILY for Thyroid, #30 TAB 0 Refills 10/21/16 Spironolactone (Spironolactone) 25 Mg Tab, 12.5 MG PO DAILY, #15 TAB 0 Refills 10/21/16 Discontinued Reported Medications Potassium Chloride ER (Potassium Chloride ER) 10 Meq Cap, 10 MEQ PO BID for Electrolyte Replacement, #60 CAP 0 Refills 11/30/16 Atenolol (Atenolol) 100 Mg Tab, 100 MG PO DAILY for Blood Pressure Management, # 30 TAB 0 Refills 10/21/16 Current Medications Medications (Trade) Dose Ordered Sig/Feliciano Route Start Time Stop Time Status Last Admin (Tenormin) 25 mg HS PO 04/25/17 21:00 04/25/17 21:24 (Lasix) 40 mg DAILY PO 04/25/17 18:00 04/26/17 08:37 (Synthroid) 75 mcg DAILY@0600 PO 04/26/17 06:00 04/26/17 05:55 (Aldactone) 12.5 mg DAILY PO 04/26/17 09:00 04/26/17 08:36 (Prinivil) 2.5 mg DAILY PO 04/25/17 18:00 04/26/17 08:37 (Effexor Xr) 75 mg DAILY PO 04/26/17 09:00 04/26/17 08:36 (Ativan) 0.5 mg Q12H PRN PO 04/25/17 17:15 (Ativan Inj) 0.5 mg Q12H PRN IM 04/25/17 17:15 (Tylenol) 650 mg Q4H PRN PO 04/25/17 17:15 04/25/17 21:24 (Milk Of Magnesia Liq) 30 ml DAILY PRN PO 04/25/17 17:15 (Mag-Al Plus Susp Liq) 30 ml Q6H PRN PO 04/25/17 17:15 Family Psych History Unknown at this time the patient's dementia Social History Patient lives in longterm. Patient's Strengths (min. 2) Patient verbal appears to have's family support irritable [facility] health care Physical Exam Patient medically cleared through her hospital patient sitting quietly in Radha chair in day room moves all 4 extremities without difficulty and no acute distress no respiratory distress Vital Signs Vital Signs Date Time Temp Pulse Resp B/P (MAP) Pulse Ox O2 Delivery O2 Flow Rate FiO2 04/26/17 06:28 97.7 69 16 131/60 (83) 96 I/O 04/26/17 04/26/17 04/27/17 08:00 16:00 00:00 Intake Total 0 ml Balance 0 ml Lab Results Test 04/26/17 08:59 Mental Status Examination Appearance: Appropriate Consciousness: Alert Orientation: Person Motor Activity: Other (patient in Radha chair will have PT assess need to be considered high fall risk) Speech: Unremarkable Language: Adequate Fund of Knowledge: Poor Attention and Concentration: Other (poor) Memory: Impaired Mood: Appropriate, Irritable (at times) Affect: Other (good range intensity) Thought Process & Associations: Circumstantial, Tangential Thought Content: Other (disorganized) Hallucination Type: None Suicidal Ideation: No Suicidal Plan: No Suicidal Intention: No Homicidal Ideation: No Homicidal Plan: No Homicidal Intention: No Insight: Poor Judgment: Poor Assessment & Plan Problem List: (1) C1 cervical fracture ICD Codes: S12.000A - Unspecified displaced fracture of first cervical vertebra , initial encounter for closed fracture (2) DEMENTIA IN OTH DISEASES CLASSD ELSWHR W BEHAVIORAL DISTURB ICD Codes: F02.81 - DEMENTIA IN OTH DISEASES CLASSD ELSWHR W BEHAVIORAL DISTURB (3) ALZHEIMER'S DISEASE WITH LATE ONSET ICD Codes: G30.1 - ALZHEIMER'S DISEASE WITH LATE ONSET Assessment & Plan Estimated LOS: 5-7 days patient meets criteria for involuntary psychiatric hospitalization I'll do first opinion request second opinion, I feel she does not have capacity will ask for healthcare surrogate and guardian advocate. Both hospitalist consult Moya, will also consult neurosurgery to have him assessed alternatives to the [place], the patient is adamantly refusing to wear. We need to coordinate discharge plans related to referral to rehabilitation versus sniff versus palliative care Discharge Planning See above Request HC Surrog/Guard Advoc?: Yes Dinh Abbott MD Apr 26, 2017 11:25
[2017-04-26 11:26] LABS: BICARBONATE 27.9 MEQ/L (21.0-32.0); BLOOD UREA NITROGEN 17 MG/DL (7-18); CALCIUM 9.2 MG/DL (8.5-10.1); CHLORIDE 97 MEQ/L (98-107); CREATININE 0.88 MG/DL (0.50-1.00); GLOMERULAR FILTRATION RATE 61 ML/MIN (>89); GLUCOSE,RANDOM 97 MG/DL (74-106); SODIUM (NA) 134 MEQ/L (136-145)
[2017-04-26 11:34] LABS: CHOLESTEROL 223 MG/DL (120-200); CHOLESTEROL/ HDL RATIO 4.61 RATIO; HDL CHOLESTEROL 48.3 MG/DL (40.0-60.0); LDL CHOLESTEROL 142 MG/DL (0-99); TRIGLYCERIDES 163 MG/DL (42-150)
[2017-04-26 15:15] LABS: HEMOGLOBIN A1C 5.7 % (4.3-6.0)
--- NOTE | 2017-04-26 16:35 | PD.CONS ---
[facility] By [facility]. Abbott Reason for Consult Medical management Primary Care Physician Unknown Diagnoses: History of Present Illness This is a 86-year-old female with a PMH of HTN, Hyperlipidemia, Dementia, CHF ( Unknown EF), Hypothyroidism and Recurrent Falls was sent to the ER from [facility] secondary to witnessed fall found to have a C1 fracture. During hospital course patient was agitated due to her dementia was transferred to inpatient psychiatry for further management. [facility] consulted to assist with medical management. Patient seen in the day room with her nurse present. She had no complaints. She stated that she's been here too long and wants to go home. She is oriented to self. She stated that she feels well. All other review of system reviewed negative. Past Family Social History Allergies: Coded Allergies: rivastigmine (Unverified Allergy, Severe, stomach ulcers, 04/21/17) amlodipine (Unverified Allergy, Intermediate, muscle pain, 04/21/17) atorvastatin (Unverified Allergy, Intermediate, muscle pain, 04/21/17) pravastatin (Unverified Allergy, Intermediate, muscle pain, 04/21/17) simvastatin (Unverified Allergy, Intermediate, muscle pain, 04/21/17) aspirin (Unverified Adverse Reaction, Severe, bleeding ulcers, 04/21/17) Past Medical History PMH: HTN, Hyperlipidemia, Dementia, CHF (Unknown EF), Hypothyroidism and Recurrent Falls, recent C1 fracture Past Surgical History Right arm surgery obtained from medical records since patient is a poor historian. Reported Medications Reported Meds & Active Scripts Active Cephalexin 500 Mg Cap 500 Mg PO Q8HR 2 Days Potassium Chloride ER (Potassium Chloride) 10 Meq Cap 10 Meq PO DAILY 30 Days Wheelchair Elevated Leg (Device) 1 Mis Mis Ea .ROUTE DIRECTED Reported Lisinopril 2.5 Mg Tab 2.5 Mg PO DAILY Atenolol 25 Mg Tab 25 Mg PO HS Atenolol 25 Mg Tab 25 Mg PO DAILY NEB Zinc Oxide (Zinc Oxide (Topical)) 20 % Oin Unknown Dose TOPICAL BID PRN Vitamin D3 (Cholecalciferol) 2,000 Unit Cap 2,000 Units PO DAILY Robitussin Peak Cold Dm 100-10 mg/5Ml (Dextromethorphan-Guaifenesin) 1 Syp Syp 5 Ml PO Q4HR PRN Lasix (Furosemide) 40 Mg Tab 40 Mg PO DAILY Imodium A-D (Loperamide HCl) 2 Mg Capsule 2 Mg PO DIRECTED PRN One capsule after each loose stool. Not to exceed 8 tablets per day. Bumetanide 2 Mg Tab 2 Mg PO BID Tylenol (Acetaminophen) 325 Mg Tab 650 Mg PO Q12HR PRN Certavite Senior/Antioxid (Multiple Vitamins W/ Minerals) 1 Tab Tab 1 Tab PO DAILY Omeprazole 40 Mg Cap 40 Mg PO DAILY Gemfibrozil 600 Mg Tab 600 Mg PO BIDAC Take 30 minutes prior to breakfast and dinner. Effexor (Venlafaxine HCl) 37.5 Mg Tab 37.5 Mg PO Q12H Tums E-X 750 (Calcium Carbonate (Antacid)) 750 Mg Chew 750 Mg CHEW PRN Levothyroxine (Levothyroxine Sodium) 75 Mcg Tab 75 Mcg PO DAILY Spironolactone 25 Mg Tab 12.5 Mg PO DAILY Active Ordered Medications Current Medications Atenolol (Tenormin) 25 mg HS PO Last administered on 04/25/17 21:24; Start 04/25/17 at 21:00 Furosemide (Lasix) 40 mg DAILY PO Last administered on 04/26/17 08:37; Start 04/25/17 at 18:00 Levothyroxine Sodium (Synthroid) 75 mcg DAILY@0600 PO Last administered on 05:55; Start 04/26/17 at 06:00 Spironolactone (Aldactone) 12.5 mg DAILY PO Last administered on 04/26/17 08: 36; Start 04/26/17 at 09:00 Lisinopril (Prinivil) 2.5 mg DAILY PO Last administered on 04/26/17 08:37; Start 04/25/17 at 18:00 Venlafaxine HCl (Effexor Xr) 75 mg DAILY PO Last administered on 04/26/17 08: 36; Start 04/26/17 at 09:00 Lorazepam (Ativan) 1 mg Q6H PRN PO MODERATE TO SEVERE ANXIETY; Start 04/25/17 at 17:15; Status UNV Lorazepam (Ativan Inj) 1 mg Q6H PRN IM MODERATE TO SEVERE ANXIETY; Start 04/25 at 17:15; Status Cancel Lorazepam (Ativan) 0.5 mg Q12H PRN PO MODERATE TO SEVERE ANXIETY; Start at 17:15; Stop 04/26/17 at 11:06; Status DC Lorazepam (Ativan Inj) 0.5 mg Q12H PRN IM MODERATE TO SEVERE ANXIETY; Start at 17:15; Stop 04/26/17 at 11:06; Status DC Acetaminophen (Tylenol) 650 mg Q4H PRN PO Pain 1-5 or Temp >101F Last administered on 04/25/17t 21:24; Start 04/25/17 at 17:15 Magnesium Hydroxide (Milk Of Magnesia Liq) 30 ml DAILY PRN PO CONSTIPATION; Start 04/25/17 at 17:15 Al Hydrox/Mg Hydrox/Simethicone (Mag-Al Plus Susp Liq) 30 ml Q6H PRN PO DYSPEPSIA; Start 04/25/17 at 17:15 Nicotine (Habitrol 21 Mg Patch.24 Hr) 1 patch DAILY T-DERMAL ; Start 04/26/17 at 09:00; Stop 04/26/17 at 11:01; Status DC Miscellaneous Information 1 DAILY T-DERMAL ; Start 04/26/17 at 09:00; Stop at 11:01; Status DC Quetiapine Fumarate (SEROquel) 25 mg BID PO ; Start 04/26/17 at 21:00 Family History No h/o DM or CAD Social History Negative for tobacco, alcohol illicit drug use. Prior to admission in the hospital she lived in [facility]. Physical Exam Vital Signs Vital Signs Date Time Temp Pulse Resp B/P (MAP) Pulse Ox O2 Delivery O2 Flow Rate FiO2 04/26/17 06:28 97.7 69 16 131/60 (83) 96 04/25/17 18:21 97.6 68 17 134/63 (86) 95 Physical Exam GENERAL: This is a well-nourished, well-developed patient, in no apparent distress. SKIN: Erythematous changes of the lower extremity resemble stasis HEAD: Atraumatic. Normocephalic. No temporal or scalp tenderness. EYES: Pupils equal round and reactive. Extraocular motions intact. No scleral icterus. No injection or drainage. ENT: Nose without bleeding, purulent drainage or septal hematoma. Throat without erythema, tonsillar hypertrophy or exudate. Uvula midline. Airway patent. NECK: Trachea midline. No JVD or lymphadenopathy. Supple, nontender, no meningeal signs. CARDIOVASCULAR: Regular rate and rhythm without murmurs, gallops, or rubs. RESPIRATORY: Clear to auscultation. Breath sounds equal bilaterally. No wheezes , rales, or rhonchi. GASTROINTESTINAL: Abdomen soft, non-tender, nondistended. No hepato-splenomegaly , or palpable masses. No guarding. MUSCULOSKELETAL: Extremities without clubbing, cyanosis, or edema. No joint tenderness, effusion, or edema noted. No calf tenderness. Negative Homans sign bilaterally. NEUROLOGICAL: Awake and alert. Cranial nerves II through XII intact. Motor and sensory grossly within normal limits. Five out of 5 muscle strength in all muscle groups. Normal speech. Laboratory Laboratory Tests Test 04/26/17 08:59 Blood Urea Nitrogen 17 Creatinine 0.88 Random Glucose 97 Calcium Level 9.2 Sodium Level 134 Potassium Level 3.4 Chloride Level 97 Carbon Dioxide Level 27.9 Anion Gap 9 Estimat Glomerular Filtration Rate 61 Hemoglobin A1c 5.7 Triglycerides Level 163 Cholesterol Level 223 LDL Cholesterol 142 HDL Cholesterol 48.3 Cholesterol/HDL Ratio 4.61 Result Diagram: 04/26/17 0859 Assessment and Plan Assessment and Plan 86-year-old female with a PMH of HTN, Hyperlipidemia, Dementia, CHF (Unknown EF) , Hypothyroidism and Recurrent Falls was sent to the ER from [facility] secondary to witnessed fall. Patient was then transferred to inpatient psychiatry secondary to agitated behavior from her dementia. Dementia with behavioral disturbance -Being managed by inpatient psychiatrist. C1 Fracture: -Continue Dolores J collar. We'll place order. -Analgesics/antiemetics as needed. -Patient will need to follow with you neurosurgeon as outpatient. HTN -Continue with home medication. CHF -not decompensated -continue medications as above -continue on home dose of Bumex and Spirolactone. Resume KCL but at lower dose. Monitor electrolytes. -monitor for signs of fluid overload Stasis dermatitis -While in the hospital she was treated empirically with Keflex 500mg q8h. wound does not look infected at all. We will continue with management from discharge from the hospital. Hypothyroidism -Patient continue on home dose of levothyroxine -TSH level WNL DVT prophylaxis -Encourage ambulation Discussed Condition With Patient and her nurse Denise Adair MD Apr 26, 2017 16:35
[2017-04-26 18:24] VITALS: BP 115/56; PULSE 82; RESP 16; TEMP 97.8; O2SAT 96
[2017-04-26] MEDS: ATENOLOL 25 MG TAB PO SCH (21:00)
[2017-04-26 22:00] VITALS: BP 120/64; PULSE 76
[2017-04-26] MEDS: CEPHALEXIN MONOHYDRATE 500 MG CAP PO SCH (22:02)
[2017-04-26] MEDS: QUEtiapine FUMARATE 25 MG TAB PO SCH (22:02)
[2017-04-27] MEDS: CEPHALEXIN MONOHYDRATE 500 MG CAP PO SCH ×3 (05:48→21:20)
[2017-04-27] MEDS: LEVOTHYROXINE SODIUM 75 MCG TAB PO SCH (05:48)
[2017-04-27 06:00] VITALS: BP 148/65; PULSE 69; RESP 18; TEMP 97.5; O2SAT 98
[2017-04-27] MEDS: LISINOPRIL 5 MG TAB PO SCH (09:00)
[2017-04-27] MEDS: QUEtiapine FUMARATE 25 MG TAB PO SCH ×2 (09:00→21:20)
[2017-04-27] MEDS: FUROSEMIDE 40 MG TAB PO SCH (10:20)
[2017-04-27] MEDS: VENLAFAXINE HCL XR 75 MG CAP PO SCH (10:20)
[2017-04-27] MEDS: ACETAMINOPHEN 325 MG TAB PO PRN (10:20)
[2017-04-27] MEDS: SPIRONOLACTONE 25 MG TAB PO SCH (10:22)
--- NOTE | 2017-04-27 13:09 | HHI.PYPN ---
Subjective Chief Complaint: patient went with increased agitation noncompliance with nurse her recommen Remarks This is a request for second opinion. Admission note was reviewed and I agree with its contents. Patient was seen and case discussed with nursing. Patient was evaluated in the dayroom where she was awoken from sleep. Patient refuses to wear her collar despite pleading by myself and nursing. Per nursing, family is aware that patient is refusing to wear the collar. Patient is alert and oriented 1. Grossly confused, thinking that she is in [place]. Mental Status Examination Appearance: Appropriate Consciousness: Somnolent Orientation: Person Motor Activity: Other (patient in Radha chair will have PT assess need to be considered high fall risk) Speech: Unremarkable Language: Adequate Fund of Knowledge: Poor Attention and Concentration: Other (poor) Memory: Impaired Mood: Appropriate, Irritable (at times) Affect: Other (good range intensity) Thought Process & Associations: Other (poverty of thought) Thought Content: Other (disorganized) Hallucination Type: None Suicidal Ideation: No Suicidal Plan: No Suicidal Intention: No Homicidal Ideation: No Homicidal Plan: No Homicidal Intention: No Insight: Poor Judgment: Poor Results Vitals/IOs Vital Signs Date Time Temp Pulse Resp B/P (MAP) Pulse Ox O2 Delivery O2 Flow Rate FiO2 04/27/17 06:00 97.5 69 18 148/65 (92) 98 Intake and Output 04/27/17 04/27/17 04/28/17 08:00 16:00 00:00 Intake Total 0 ml 240 ml Balance 0 ml 240 ml Assessment & Plan Problem List: (1) C1 cervical fracture ICD Codes: S12.000A - Unspecified displaced fracture of first cervical vertebra , initial encounter for closed fracture (2) DEMENTIA IN OTH DISEASES CLASSD ELSWHR W BEHAVIORAL DISTURB ICD Codes: F02.81 - DEMENTIA IN OTH DISEASES CLASSD ELSWHR W BEHAVIORAL DISTURB (3) ALZHEIMER'S DISEASE WITH LATE ONSET ICD Codes: G30.1 - ALZHEIMER'S DISEASE WITH LATE ONSET Assessment & Plan Nursing was asked to hold second dose of Seroquel if patient remains sedated. Will consider lower dose tomorrow. Continue medical treatment as indicated. I agree with the first opinion to continue petition. Criteria include change in mental status and psychosis Justification for Cont. Inpt. Patient would decompensate in a less restrictive setting Request HC Surrog/Guard Advoc?: Yes Edy Ocampo DO Apr 27, 2017 13:09
[2017-04-27 20:51] VITALS: BP 90/46; PULSE 75; RESP 18; TEMP 97.6; O2SAT 93
[2017-04-27] MEDS: ATENOLOL 25 MG TAB PO SCH (21:00)
--- NOTE | 2017-04-27 22:19 | PD.CONS ---
History of Present Illness Service Neurosurgery Consult Requested By Dr. Abbott Reason for Consult C1 fracture Primary Care Physician Unknown Diagnoses: History of Present Illness The patient is an 86-year-old female recently admitted to [facility] with a history of multiple recent falls. She was diagnosed with a C1 fracture and seen by neurosurgery for evaluation with conservative treatment recommended. She was readmitted to the psychiatry unit on 04/25/17 22 agitation, noncompliance. She has a history of dementia. Review of Systems Constitutional: DENIES: Dizziness Eyes: DENIES: Blurred vision, Diplopia Respiratory: DENIES: Shortness of breath Gastrointestinal: DENIES: Abdominal pain Musculoskeletal: COMPLAINS OF: Muscle aches, Neck pain Neurologic: COMPLAINS OF: Poor Balance Past Family Social History Allergies: Coded Allergies: rivastigmine (Unverified Allergy, Severe, stomach ulcers, 04/21/17) amlodipine (Unverified Allergy, Intermediate, muscle pain, 04/21/17) atorvastatin (Unverified Allergy, Intermediate, muscle pain, 04/21/17) pravastatin (Unverified Allergy, Intermediate, muscle pain, 04/21/17) simvastatin (Unverified Allergy, Intermediate, muscle pain, 04/21/17) aspirin (Unverified Adverse Reaction, Severe, bleeding ulcers, 04/21/17) Past Medical History Dementia Hypothyroidism Hypertension Dyslipidemia Past Surgical History Right arm surgery Reported Medications Reported Meds & Active Scripts Active Cephalexin 500 Mg Cap 500 Mg PO Q8HR 2 Days Potassium Chloride ER (Potassium Chloride) 10 Meq Cap 10 Meq PO DAILY 30 Days Wheelchair Elevated Leg (Device) 1 Mis Mis Ea .ROUTE DIRECTED Reported Lisinopril 2.5 Mg Tab 2.5 Mg PO DAILY Atenolol 25 Mg Tab 25 Mg PO HS Atenolol 25 Mg Tab 25 Mg PO DAILY NEB Zinc Oxide (Zinc Oxide (Topical)) 20 % Oin Unknown Dose TOPICAL BID PRN Vitamin D3 (Cholecalciferol) 2,000 Unit Cap 2,000 Units PO DAILY Robitussin Peak Cold Dm 100-10 mg/5Ml (Dextromethorphan-Guaifenesin) 1 Syp Syp 5 Ml PO Q4HR PRN Lasix (Furosemide) 40 Mg Tab 40 Mg PO DAILY Imodium A-D (Loperamide HCl) 2 Mg Capsule 2 Mg PO DIRECTED PRN One capsule after each loose stool. Not to exceed 8 tablets per day. Bumetanide 2 Mg Tab 2 Mg PO BID Tylenol (Acetaminophen) 325 Mg Tab 650 Mg PO Q12HR PRN Certavite Senior/Antioxid (Multiple Vitamins W/ Minerals) 1 Tab Tab 1 Tab PO DAILY Omeprazole 40 Mg Cap 40 Mg PO DAILY Gemfibrozil 600 Mg Tab 600 Mg PO BIDAC Take 30 minutes prior to breakfast and dinner. Effexor (Venlafaxine HCl) 37.5 Mg Tab 37.5 Mg PO Q12H Tums E-X 750 (Calcium Carbonate (Antacid)) 750 Mg Chew 750 Mg CHEW PRN Levothyroxine (Levothyroxine Sodium) 75 Mcg Tab 75 Mcg PO DAILY Spironolactone 25 Mg Tab 12.5 Mg PO DAILY Social History Denies cigarettes, alcohol in the past Physical Exam Vital Signs Vital Signs Date Time Temp Pulse Resp B/P (MAP) Pulse Ox O2 Delivery O2 Flow Rate FiO2 04/27/17 20:51 97.6 75 18 90/46 (61) 93 04/27/17 06:00 97.5 69 18 148/65 (92) 98 04/27/17 06:00 97.5 69 18 148/65 (92) 98 Physical Exam GENERAL: Elderly lady, somewhat slumped over in the chair, eating. SKIN: Significant edema, ecchymosis in the lower extremities HEAD: Atraumatic. Normocephalic. No temporal or scalp tenderness. EYES: Sclerae are clear NECK: Moderate tenderness at the cervical-thoracic midline. Approximately 30 flexion and extension and rotation without complaint of significant pain. RESPIRATORY: Clear, nonlabored GASTROINTESTINAL: Abdomen soft, non-tender, nondistended. MUSCULOSKELETAL: Positive left elbow and forearm tenderness with range of motion and palpation. No significant edema left elbow. NEUROLOGICAL: Awake and alert Answers most simple questions appropriately Diminished judgment and insight Speech is clear Extraocular movements intact Facial motor movement symmetric Facial sensation intact to light touch Hearing intact to finger rub Sensation intact light touch all extremities Strength is diminished to approximately 3/5 left triceps and diminished in bilateral hand intrinsics which may be related to arthritic changes in the hands. She has reasonably good strength in bilateral quadriceps hamstrings tibialis anterior and gastrocsoleus with some difficulty performing iliopsoas testing. Stephon's response absent bilateral No ankle clonus Result Diagram: 04/26/17 0859 Imaging The patient's recent CT scan of the cervical spine from 04/21/17 images are reviewed by the undersigned. This study reveals a right anterior C1 arch fracture with minimal separation. No significant subluxation noted. Significant cervical degenerative changes. Assessment and Plan Assessment and Plan Impression: 1. C1 anterior arch fracture. No significant displacement. No evidence of subluxation or instability. The dens remains intact. Plan: Discussed with the patient. I believe that she can safely be left out of the cervical collar. She has been refusing to wear it and it is quite uncomfortable for her. To make sure that she is stable, a lateral cervical flexion and extension x-ray will be obtained. I discussed this with her and she seems willing to do this study and is able to move her neck back and forth comfortably on exam today. If the flexion and extension x-ray is without significant instability, then she can be left out of the collar. Cristhian Barney MD Apr 27, 2017 22:19
--- NOTE | 2017-04-27 23:33 | RADRPT ---
EXAM DATE/TIME: 04/27/2017 22:59 [facility] COMPARISON: CT CERVICAL SPINE W/O CONTRAST, April 21, 2017, 2:43. INDICATIONS : C1 anterior arch fracture. MEDICAL HISTORY : Cardiovascular disease. Gastroesophageal reflux disease. Congestive heart failure.Hypertension. Renal calculi. Dementia. SURGICAL HISTORY : None. ENCOUNTER: Initial ACUITY: 1 week PAIN SCORE: Non-responsive. LOCATION: Bilateral neck FINDINGS: Patient has a known C1 arch fracture. There is slight anterolisthesis at C2/C3 during flexion, measur es approximately 3 mm there is about 1 mm of anterolisthesis at C2/C3 with extension. Cervical spine alignment otherwise appears normal. CONCLUSION: Grade 1 anterolisthesis at C2/C3, mostly with flexion. No other abnormal alignment/motion. Dinh Bustillos MD on April 27, 2017 at 23:30 Board Certified Radiologist. This report was verified electronically.
[2017-04-28] MEDS: LEVOTHYROXINE SODIUM 75 MCG TAB PO SCH (06:00)
[2017-04-28] MEDS: CEPHALEXIN MONOHYDRATE 500 MG CAP PO SCH ×3 (06:00→21:10)
[2017-04-28 06:27] VITALS: BP 90/42; PULSE 77; RESP 17; TEMP 97.4; O2SAT 95
[2017-04-28] MEDS: VENLAFAXINE HCL XR 75 MG CAP PO SCH (08:55)
[2017-04-28] MEDS: QUEtiapine FUMARATE 25 MG TAB PO SCH ×2 (08:55→21:10)
[2017-04-28] MEDS: SPIRONOLACTONE 25 MG TAB PO SCH (09:00)
[2017-04-28] MEDS: LISINOPRIL 5 MG TAB PO SCH (09:00)
[2017-04-28] MEDS: FUROSEMIDE 40 MG TAB PO SCH (09:00)
[2017-04-28 11:00] VITALS: BP 89/53
--- NOTE | 2017-04-28 11:02 | HHI.PYPN ---
Subjective Chief Complaint: patient went with increased agitation noncompliance with nurse her recommen Remarks Patient was seen and case discussed with nursing. Patient is followed by the medical team CT spine spending. Patient continues to refuse to wear the collar. She is less sedated today, tolerating her Seroquel well. However she has needed bizarre delusions today. She is perseverant she had 4 children last night and that she is in her 30s Mental Status Examination Appearance: Appropriate Consciousness: Alert Orientation: Person Motor Activity: Other (patient in Radha chair will have PT assess need to be considered high fall risk) Speech: Unremarkable Language: Adequate Fund of Knowledge: Poor Attention and Concentration: Other (poor) Memory: Impaired Mood: Appropriate, Irritable (at times) Affect: Other (good range intensity) Thought Process & Associations: Other (poverty of thought) Thought Content: Delusional (bizarre delusions) Hallucination Type: None Suicidal Ideation: No Suicidal Plan: No Suicidal Intention: No Homicidal Ideation: No Homicidal Plan: No Homicidal Intention: No Insight: Poor Judgment: Poor Results Vitals/IOs Vital Signs Date Time Temp Pulse Resp B/P (MAP) Pulse Ox O2 Delivery O2 Flow Rate FiO2 04/28/17 06:27 97.4 77 17 90/42 (58) 95 Intake and Output 04/28/17 04/28/17 04/29/17 08:00 16:00 00:00 Intake Total 0 ml 0 ml Balance 0 ml 0 ml Assessment & Plan Problem List: (1) C1 cervical fracture ICD Codes: S12.000A - Unspecified displaced fracture of first cervical vertebra , initial encounter for closed fracture (2) DEMENTIA IN OTH DISEASES CLASSD ELSWHR W BEHAVIORAL DISTURB ICD Codes: F02.81 - DEMENTIA IN OTH DISEASES CLASSD ELSWHR W BEHAVIORAL DISTURB (3) ALZHEIMER'S DISEASE WITH LATE ONSET ICD Codes: G30.1 - ALZHEIMER'S DISEASE WITH LATE ONSET Assessment & Plan Continue current treatment plan, consider increasing Seroquel Justification for Cont. Inpt. Patient would decompensate in a less restrictive setting Request HC Surrog/Guard Advoc?: Yes Edy Ocampo DO Apr 28, 2017 11:02
--- NOTE | 2017-04-28 13:42 | HHI.NSPN ---
Exam Results Vital Signs Date Time Temp Pulse Resp B/P (MAP) Pulse Ox O2 Delivery O2 Flow Rate FiO2 04/28/17 11:00 89/53 (65) 04/28/17 06:27 97.4 77 17 95 Intake and Output 04/28/17 04/28/17 04/29/17 08:00 16:00 00:00 Intake Total 0 ml 480 ml Balance 0 ml 480 ml Lab, Micro, Other Results 04/27/17 bilateral cervical flexion and extension x-ray images reviewed by the undersigned. Stable approximate 2 mm C2-3 anterolisthesis with flexion and extension. Cervical Spine X-Ray 04/27/17 0000 Signed Impressions: Service Date/Time: Thursday, April 27, 2017 22:59 - CONCLUSION: Grade 1 anterolisthesis at C2/C3, mostly with flexion. No other abnormal alignment/motion. Dinh Bustillos MD Medical Decision Making Impression and Plan Impression: C1 anterior arch fracture. Appears stable on flexion and extension. Plan: May discontinue cervical collar. Patient unable to tolerate. She was [facility] from neurosurgical standpoint. No surgical intervention anticipated The follow-up as needed with Dr. Pool for further neck problems Cristhian Barney MD Apr 28, 2017 13:42
--- NOTE | 2017-04-28 13:42 | HHI.NSPN ---
Exam Results Vital Signs Date Time Temp Pulse Resp B/P (MAP) Pulse Ox O2 Delivery O2 Flow Rate FiO2 04/28/17 11:00 89/53 (65) 04/28/17 06:27 97.4 77 17 95 Intake and Output 04/28/17 04/28/17 04/29/17 08:00 16:00 00:00 Intake Total 0 ml 480 ml Balance 0 ml 480 ml Lab, Micro, Other Results 04/27/17 bilateral cervical flexion and extension x-ray images reviewed by the undersigned. Stable approximate 2 mm C2-3 anterolisthesis with flexion and extension. Cervical Spine X-Ray 04/27/17 0000 Signed Impressions: Service Date/Time: Thursday, April 27, 2017 22:59 - CONCLUSION: Grade 1 anterolisthesis at C2/C3, mostly with flexion. No other abnormal alignment/motion. Dinh Bustillos MD Medical Decision Making Impression and Plan Impression: C1 anterior arch fracture. Appears stable on flexion and extension. Plan: May discontinue cervical collar. Patient unable to tolerate. She was discharged to assisted from neurosurgical standpoint. No surgical intervention anticipated The follow-up as needed with Dr. Pool for further neck problems Cristhian Barney MD Apr 28, 2017 13:42
--- NOTE | 2017-04-28 13:42 | HHI.NSPN ---
Exam Results Vital Signs Date Time Temp Pulse Resp B/P (MAP) Pulse Ox O2 Delivery O2 Flow Rate FiO2 04/28/17 11:00 89/53 (65) 04/28/17 06:27 97.4 77 17 95 Intake and Output 04/28/17 04/28/17 04/29/17 08:00 16:00 00:00 Intake Total 0 ml 480 ml Balance 0 ml 480 ml Lab, Micro, Other Results 04/27/17 bilateral cervical flexion and extension x-ray images reviewed by the undersigned. Stable approximate 2 mm C2-3 anterolisthesis with flexion and extension. Cervical Spine X-Ray 04/27/17 0000 Signed Impressions: Service Date/Time: Thursday, April 27, 2017 22:59 - CONCLUSION: Grade 1 anterolisthesis at C2/C3, mostly with flexion. No other abnormal alignment/motion. Dinh Bustillos MD Medical Decision Making Impression and Plan Impression: C1 anterior arch fracture. Appears stable on flexion and extension. Plan: May discontinue cervical collar. Patient unable to tolerate. She was [facility] from neuro[facility] standpoint. No surgical intervention anticipated The follow-up as needed with Dr. Pool for further neck problems Cristhian Barney MD Apr 28, 2017 13:42
--- NOTE | 2017-04-28 15:21 | HHI.PR ---
Subjective Remarks Patient had low blood pressure this morning. She denies any chest pain, shortness of breathing, palpitation, lightheadedness or dizziness. She stated that she did not know her blood pressure was low this morning. Patient seen with her sister during visitation. Patient stated she did not like the [place] collar did not want to wear. Objective Vitals Vital Signs Date Time Temp Pulse Resp B/P (MAP) Pulse Ox O2 Delivery O2 Flow Rate FiO2 04/28/17 11:00 89/53 (65) 04/28/17 06:27 97.4 77 17 90/42 (58) 95 04/27/17 20:51 97.6 75 18 90/46 (61) 93 I/O 04/27/17 04/27/17 04/27/17 04/28/17 04/28/17 04/28/17 07:00 15:00 23:00 07:00 15:00 23:00 Intake Total 0 ml 480 ml 120 ml 240 ml 480 ml Balance 0 ml 480 ml 120 ml 240 ml 480 ml Intake Oral 0 ml 480 ml 120 ml 240 ml 480 ml # Voids 1 2 1 # Bowel Movements 0 0 Result Diagram: 04/26/17 0859 Objective Remarks GENERAL: This is a well-nourished, well-developed patient, in no apparent distress. SKIN: Erythematous changes of the lower extremity resemble stasis HEAD: Atraumatic. Normocephalic. No temporal or scalp tenderness. EYES: Pupils equal round and reactive. Extraocular motions intact. No scleral icterus. No injection or drainage. ENT: Nose without bleeding, purulent drainage or septal hematoma. Throat without erythema, tonsillar hypertrophy or exudate. Uvula midline. Airway patent. NECK: Trachea midline. No JVD or lymphadenopathy. Supple, nontender, no meningeal signs. CARDIOVASCULAR: Regular rate and rhythm without murmurs, gallops, or rubs. RESPIRATORY: Clear to auscultation. Breath sounds equal bilaterally. No wheezes , rales, or rhonchi. GASTROINTESTINAL: Abdomen soft, non-tender, nondistended. No hepato-splenomegaly , or palpable masses. No guarding. MUSCULOSKELETAL: Extremities without clubbing, cyanosis, or edema. No joint tenderness, effusion, or edema noted. No calf tenderness. Negative Homans sign bilaterally. NEUROLOGICAL: Awake and alert. Cranial nerves II through XII intact. Motor and sensory grossly within normal limits. Five out of 5 muscle strength in all muscle groups. Normal speech. Medications and IVs Current Medications Atenolol (Tenormin) 25 mg HS PO Last administered on 04/25/17 21:24; Start 04/25/17 at 21:00 Furosemide (Lasix) 40 mg DAILY PO Last administered on 04/27/17 10:20; Start 04/25/17 at 18:00; Status Future Hold Levothyroxine Sodium (Synthroid) 75 mcg DAILY@0600 PO Last administered on 06:00; Start 04/26/17 at 06:00 Spironolactone (Aldactone) 12.5 mg DAILY PO Last administered on 04/27/17 10: 22; Start 04/26/17 at 09:00; Status Future Hold Lisinopril (Prinivil) 2.5 mg DAILY PO Last administered on 04/27/17 09:00; Start 04/25/17 at 18:00; Status Future Hold Venlafaxine HCl (Effexor Xr) 75 mg DAILY PO Last administered on 04/28/17 08: 55; Start 04/26/17 at 09:00 Lorazepam (Ativan) 1 mg Q6H PRN PO MODERATE TO SEVERE ANXIETY; Start 04/25/17 at 17:15; Status UNV Lorazepam (Ativan Inj) 1 mg Q6H PRN IM MODERATE TO SEVERE ANXIETY; Start 04/25 at 17:15; Status Cancel Lorazepam (Ativan) 0.5 mg Q12H PRN PO MODERATE TO SEVERE ANXIETY; Start at 17:15; Stop 04/26/17 at 11:06; Status DC Lorazepam (Ativan Inj) 0.5 mg Q12H PRN IM MODERATE TO SEVERE ANXIETY; Start at 17:15; Stop 04/26/17 at 11:06; Status DC Acetaminophen (Tylenol) 650 mg Q4H PRN PO Pain 1-5 or Temp >101F Last administered on 04/27/17 10:20; Start 04/25/17 at 17:15 Magnesium Hydroxide (Milk Of Magnesia Liq) 30 ml DAILY PRN PO CONSTIPATION; Start 04/25/17 at 17:15 Al Hydrox/Mg Hydrox/Simethicone (Mag-Al Plus Susp Liq) 30 ml Q6H PRN PO DYSPEPSIA; Start 04/25/17 at 17:15 Nicotine (Habitrol 21 Mg Patch.24 Hr) 1 patch DAILY T-DERMAL ; Start 04/26/17 at 09:00; Stop 04/26/17 at 11:01; Status DC Miscellaneous Information 1 DAILY T-DERMAL ; Start 04/26/17 at 09:00; Stop at 11:01; Status DC Quetiapine Fumarate (SEROquel) 25 mg BID PO Last administered on 04/28/17 08: 55; Start 04/26/17 at 21:00 Cephalexin Monohydrate (Keflex) 500 mg Q8HR PO Last administered on 04/28/17 06:00; Start 04/26/17 at 22:00 A/P Assessment and Plan 86-year-old female with a PMH of HTN, Hyperlipidemia, Dementia, CHF (Unknown EF) , Hypothyroidism and Recurrent Falls [facility] witnessed [facility]. Patient was then transferred to inpatient psychiatry secondary to agitated behavior from her dementia. Dementia with behavioral disturbance -Being managed by inpatient psychiatrist. C1 Fracture: -Neurosurgeon was consulted. Repeated x-ray of the cervical spine which was negative. Stated that patient can be out of the [place] collar. -Neurosurgeon sign off ascitic and follow-up with Dr. Pool as outpatient. HTN now hypertensive -Today patient was hypotensive. Seems most likely due to antihypertensive medication. No signs of infection. Asymptomatic. Hold antihypertensive medication. Will monitor off of antihypertensive medication. Will monitor closely. CHF -not decompensated -Need to hold medications secondary to hypotension. Stasis dermatitis -While in the hospital she was treated empirically with Keflex 500mg q8h. wound does not look infected at all. We will continue with management from discharge from the hospital. Hypothyroidism -Patient continue on home dose of levothyroxine -TSH level WNL DVT prophylaxis -Encourage ambulation Denise Adair MD Apr 28, 2017 15:21
[2017-04-28 18:24] VITALS: BP 98/52; PULSE 90; RESP 18; TEMP 97.7; O2SAT 97
[2017-04-28] MEDS: ATENOLOL 25 MG TAB PO SCH (21:00)
[2017-04-29 05:35] VITALS: BP 105/52; PULSE 83; RESP 18; TEMP 97.8
[2017-04-29] MEDS: LEVOTHYROXINE SODIUM 75 MCG TAB PO SCH (06:00)
[2017-04-29] MEDS: VENLAFAXINE HCL XR 75 MG CAP PO SCH (08:55)
[2017-04-29] MEDS: QUEtiapine FUMARATE 25 MG TAB PO SCH ×2 (08:55→21:43)
[2017-04-29 08:58] LABS: HEMOGLOBIN 11.5 GM/DL (11.6-15.3); MEAN CELL VOLUME 85.9 FL (80.0-100.0); MEAN CORPUSCULAR HEMOGLOBIN 27.5 PG (27.0-34.0); MEAN PLATELET VOLUME 8.5 FL (7.0-11.0); PLATELET COUNT 347 TH/MM3 (150-450); RED BLOOD COUNT 4.19 MIL/MM3 (4.00-5.30); RED CELL DISTRIBUTION WIDTH 14.4 % (11.6-17.2); WHITE BLOOD COUNT 38.4 TH/MM3 (4.0-11.0)
--- NOTE | 2017-04-29 09:46 | HHI.PYPN ---
Subjective Chief Complaint: patient went with increased agitation noncompliance with nurse her recommen Remarks Patient seen in day room with medical student Charles, chart review, patient compliant medication. Neurosurgery consult noted and appreciated x-rays ordered by neurosurgery reviewed. It appears the patient is not required to wear the [place] cervical collar. I share this the patient and she appreciates. She denies suicidality homicidality voices or visions. She has been cooperative with the staff will not approach for the cervical collar. Patient compliant with her medications. For now continue treatment Review of Systems Except as stated in HPI: all other systems reviewed are Neg Mental Status Examination Appearance: Appropriate Consciousness: Alert Orientation: Person Motor Activity: Other (patient in Radha chair will have PT assess need to be considered high fall risk) Speech: Unremarkable Language: Adequate Fund of Knowledge: Poor Attention and Concentration: Other (poor) Memory: Impaired Mood: Appropriate, Irritable (at times) Affect: Other (good range intensity) Thought Process & Associations: Other (poverty of thought) Thought Content: Delusional (bizarre delusions) Hallucination Type: None Suicidal Ideation: No Suicidal Plan: No Suicidal Intention: No Homicidal Ideation: No Homicidal Plan: No Homicidal Intention: No Insight: Poor Judgment: Poor Results Labs Test 04/29/17 08:25 White Blood Count 38.4 TH/MM3 Red Blood Count 4.19 MIL/MM3 Hemoglobin 11.5 GM/DL Hematocrit 36.0 % Mean Corpuscular Volume 85.9 FL Mean Corpuscular Hemoglobin 27.5 PG Mean Corpuscular Hemoglobin Concent 32.0 % Red Cell Distribution Width 14.4 % Platelet Count 347 TH/MM3 Mean Platelet Volume 8.5 FL Vitals/IOs Vital Signs Date Time Temp Pulse Resp B/P (MAP) Pulse Ox O2 Delivery O2 Flow Rate FiO2 04/29/17 05:35 97.8 83 18 105/52 (69) 04/28/17 18:24 97 Intake and Output 04/29/17 04/29/17 04/30/17 08:00 16:00 00:00 Intake Total 360 ml Balance 360 ml Assessment & Plan Problem List: (1) C1 cervical fracture ICD Codes: S12.000A - Unspecified displaced fracture of first cervical vertebra , initial encounter for closed fracture (2) DEMENTIA IN OTH DISEASES CLASSD ELSWHR W BEHAVIORAL DISTURB ICD Codes: F02.81 - DEMENTIA IN OTH DISEASES CLASSD ELSWHR W BEHAVIORAL DISTURB (3) ALZHEIMER'S DISEASE WITH LATE ONSET ICD Codes: G30.1 - ALZHEIMER'S DISEASE WITH LATE ONSET Assessment & Plan Patient continues dementing confused calm. Her behaviors markedly improved with not being approached with attempts to place the rigid [place] cervical collar on her. She is compliant with medications Justification for Cont. Inpt. At this time patient will decompensate is not placed in an appropriate level of care Discharge Planning With patient now being medically cleared from use of cervical collar attempts will be made for placement Request HC Surrog/Guard Advoc?: Yes Dinh Abbott MD Apr 29, 2017 09:46
[2017-04-29 09:49] LABS: BICARBONATE 29.2 MEQ/L (21.0-32.0); CALCIUM 8.9 MG/DL (8.5-10.1); CREATININE 1.22 MG/DL (0.50-1.00)
--- NOTE | 2017-04-29 14:15 | PD.TTN ---
Patient Problems 1. Discharge planning 2. Medication compliance 3. Knowledge deficit 4. Lack of coping skills Progress Toward Goals Provider Present: Dr. Siddharth Abbott Provider Input: 04/29/17 meets criteria today, waiting on input from PT and Neuro Psychiatric Counselors Present: Santa Portillo LCSW Psych Therapist Input: 04/29/17 patient can return to [facility] and can get PT at facility, they would like to come out and assess patient tomorrow and also would like an order for a hospital bed, faxed [facility] the 1822 and the order for the medical bed also faxed referral to [facility] in case she still needs rehab Group Spec/RT/OT/SAHU Present: LUIS ALBERTO Hurd Group Spec/RT/OT/SAHU Input: patient has not come to any groups Santa Portillo LCSW Apr 29, 2017 14:15
[2017-04-29] MEDS: ACETAMINOPHEN 325 MG TAB PO PRN (14:52)
[2017-04-29] MEDS: CEPHALEXIN MONOHYDRATE 500 MG CAP PO SCH ×2 (14:53→21:43)
[2017-04-29 18:49] VITALS: BP 110/54; PULSE 96; RESP 16; TEMP 97.4; O2SAT 96
[2017-04-29] MEDS: ATENOLOL 25 MG TAB PO SCH (21:43)
[2017-04-30 05:54] VITALS: BP 134/60; PULSE 65; RESP 17; TEMP 98.2; O2SAT 96
[2017-04-30] MEDS: CEPHALEXIN MONOHYDRATE 500 MG CAP PO SCH ×3 (06:13→20:10)
[2017-04-30] MEDS: LEVOTHYROXINE SODIUM 75 MCG TAB PO SCH (06:13)
[2017-04-30] MEDS: QUEtiapine FUMARATE 25 MG TAB PO SCH ×2 (07:48→17:47)
[2017-04-30] MEDS: VENLAFAXINE HCL XR 75 MG CAP PO SCH (07:48)
--- NOTE | 2017-04-30 10:50 | HHI.PR ---
Subjective Remarks Follow up acute kidney injury. Patient resting in day room. No complaints. No events reported by nursing. Objective Vitals Vital Signs Date Time Temp Pulse Resp B/P (MAP) Pulse Ox O2 Delivery O2 Flow Rate FiO2 04/30/17 05:54 98.2 65 17 134/60 (84) 96 04/29/17 18:49 97.4 96 16 110/54 (72) 96 I/O 04/29/17 04/29/17 04/29/17 04/30/17 04/30/17 04/30/17 07:00 15:00 23:00 07:00 15:00 23:00 Intake Total 0 ml 360 ml 240 ml 240 ml 120 ml Balance 0 ml 360 ml 240 ml 240 ml 120 ml Intake Oral 0 ml 360 ml 240 ml 240 ml 120 ml # Voids 0 1 2 # Bowel Movements 0 Result Diagram: 04/29/17 0825 04/29/17 0825 Imaging Last Impressions Cervical Spine X-Ray 04/27/17 0000 Signed Impressions: Service Date/Time: Thursday, April 27, 2017 22:59 - CONCLUSION: Grade 1 anterolisthesis at C2/C3, mostly with flexion. No other abnormal alignment/motion. Dinh Bustillos MD Objective Remarks General: Elderly female in no acute distress. Heart: Regular rate and rhythm. No murmur. Lungs: Clear to auscultation bilaterally. No wheezes, rales, or rhonchi. Breathing is nonlabored. Abdomen: Soft, nontender, nondistended. Extremities: No lower extremity edema. Psych: Alert and oriented. Procedures None Urinary Catheter: No Vascular Central Line Catheter: No A/P Assessment and Plan 1. Dementia with behavioral disturbance: Management per psychiatry. 2. C1 fracture: Appreciate neurosurgery recommendations. Patient cleared by neurosurgery to be out of [facility]. 3. Hypertension: Blood pressure improved today. She had been hypotensive. Continue atenolol. Lasix, spironolactone, lisinopril on hold. 4. CHF: Diuretics, GUMARO inhibitor on hold secondary to hypotension. 5. Venous stasis dermatitis: Patient is being treated with Keflex to cover possible cellulitis. Continue wound care. 6. Hypothyroidism: Continue Synthroid. 7. Acute kidney injury: Creatinine was elevated yesterday. Labs are pending today. 8. DVT prophylaxis: Ambulation. Discharge Planning Per nursing, psychiatry pending discharge soon, possibly today. Awaiting labs at this time. Damian Morgan MD Apr 30, 2017 10:50
[2017-04-30 11:57] LABS: AUTOMATED NEUTROPHIL # 9.1 TH/MM3 (1.8-7.7); BASOPHIL # 0.2 TH/MM3 (0-0.2); BASOPHIL % 0.5 % (0.0-2.0); EOSINOPHIL # 0.4 TH/MM3 (0-0.4); EOSINOPHIL % 1.2 % (0.0-4.0); HEMATOCRIT 33.4 % (35.0-46.0); HEMOGLOBIN 10.7 GM/DL (11.6-15.3); LYMPH % 67.7 % (9.0-44.0); LYMPHOCYTE # 22.6 TH/MM3 (1.0-4.8); MEAN CELL VOLUME 86.2 FL (80.0-100.0); MEAN CORPUSCULAR HEMOGLOBIN 27.7 PG (27.0-34.0); MEAN CORPUSCULAR HGB CONC 32.1 % (32.0-36.0); MEAN PLATELET VOLUME 9.2 FL (7.0-11.0); MONO % 3.4 % (0.0-8.0); MONOCYTE # 1.1 TH/MM3 (0-0.9); NEUT % 27.2 % (16.0-70.0); PLATELET COUNT 332 TH/MM3 (150-450); RED BLOOD COUNT 3.87 MIL/MM3 (4.00-5.30); RED CELL DISTRIBUTION WIDTH 14.3 % (11.6-17.2); WHITE BLOOD COUNT 33.5 TH/MM3 (4.0-11.0)
[2017-04-30 12:21] LABS: BICARBONATE 28.3 MEQ/L (21.0-32.0); CALCIUM 8.7 MG/DL (8.5-10.1); CREATININE 0.86 MG/DL (0.50-1.00)
[2017-04-30 13:48] LABS: BASOPHILS 1 % (0-2); METAMYELOCYTES 1 % (0-1); MONOCYTES 5 % (0-8); NEUTROPHIL # MANUAL DIFF 10.4 TH/MM3 (1.8-7.7); POLYS (SEG NEUTROPHILS) 30 % (16-70)
[2017-04-30 13:51] LABS: LYMPHOCYTES 63 % (9-44); SMUDGE CELLS PRESENT PRESENT
--- NOTE | 2017-04-30 14:43 | HHI.PYPN ---
Subjective Chief Complaint: patient went with increased agitation noncompliance with nurse her recommen Remarks Patient seen today in her room with medical student christie, chart reviewed, patient compliant medication, continue somewhat confused, saying she wants to go home now because her is dying and she needs to be with him. She became somewhat irritable and tearful when I declined to allow that to happen. Will increase scheduled Seroquel from twice a day to 3 times a day Review of Systems Except as stated in HPI: all other systems reviewed are Neg Mental Status Examination Appearance: Appropriate Consciousness: Alert Orientation: Person Motor Activity: Other (patient in Radha chair will have PT assess need to be considered high fall risk) Speech: Unremarkable Language: Adequate Fund of Knowledge: Poor Attention and Concentration: Other (poor) Memory: Impaired Mood: Appropriate, Irritable (at times) Affect: Other (good range intensity) Thought Process & Associations: Other (poverty of thought) Thought Content: Delusional (bizarre delusions) Hallucination Type: None Suicidal Ideation: No Suicidal Plan: No Suicidal Intention: No Homicidal Ideation: No Homicidal Plan: No Homicidal Intention: No Insight: Poor Judgment: Poor Results Labs Test 04/30/17 10:54 White Blood Count 33.5 TH/MM3 Red Blood Count 3.87 MIL/MM3 Hemoglobin 10.7 GM/DL Hematocrit 33.4 % Mean Corpuscular Volume 86.2 FL Mean Corpuscular Hemoglobin 27.7 PG Mean Corpuscular Hemoglobin Concent 32.1 % Red Cell Distribution Width 14.3 % Platelet Count 332 TH/MM3 Mean Platelet Volume 9.2 FL Neutrophils (%) (Auto) 27.2 % Lymphocytes (%) (Auto) 67.7 % Monocytes (%) (Auto) 3.4 % Eosinophils (%) (Auto) 1.2 % Basophils (%) (Auto) 0.5 % Neutrophils # (Auto) 9.1 TH/MM3 Lymphocytes # (Auto) 22.6 TH/MM3 Monocytes # (Auto) 1.1 TH/MM3 Eosinophils # (Auto) 0.4 TH/MM3 Basophils # (Auto) 0.2 TH/MM3 CBC Comment AUTO DIFF Differential Total Cells Counted 100 Neutrophils % (Manual) 30 % Lymphocytes % 63 % Monocytes % 5 % Basophils % 1 % Neutrophils # (Manual) 10.4 TH/MM3 Metamyelocytes 1 % Differential Comment FINAL DIFF MANUAL Smudge Cells PRESENT Platelet Estimate NORMAL Platelet Morphology Comment NORMAL Red Cell Morphology Comment NORMAL Blood Urea Nitrogen 39 MG/DL Creatinine 0.86 MG/DL Random Glucose 104 MG/DL Calcium Level 8.7 MG/DL Sodium Level 136 MEQ/L Potassium Level 4.5 MEQ/L Chloride Level 101 MEQ/L Carbon Dioxide Level 28.3 MEQ/L Anion Gap 7 MEQ/L Estimat Glomerular Filtration Rate 62 ML/MIN Vitals/IOs Vital Signs Date Time Temp Pulse Resp B/P (MAP) Pulse Ox O2 Delivery O2 Flow Rate FiO2 04/30/17 05:54 98.2 65 17 134/60 (84) 96 Intake and Output 04/30/17 04/30/17 05/01/17 08:00 16:00 00:00 Intake Total 360 ml 120 ml Balance 360 ml 120 ml Assessment & Plan Problem List: (1) C1 cervical fracture ICD Codes: S12.000A - Unspecified displaced fracture of first cervical vertebra , initial encounter for closed fracture (2) DEMENTIA IN OTH DISEASES CLASSD ELSWHR W BEHAVIORAL DISTURB ICD Codes: F02.81 - DEMENTIA IN OTH DISEASES CLASSD ELSWHR W BEHAVIORAL DISTURB (3) ALZHEIMER'S DISEASE WITH LATE ONSET ICD Codes: G30.1 - ALZHEIMER'S DISEASE WITH LATE ONSET Assessment & Plan Estimated LOS: days patient continue somewhat confused and demented, with some increased irritability today focusing on relationship with her , will increase Seroquel to 25 mg 3 times a day Justification for Cont. Inpt. At this time patient decompensate if placed in a lower level of care Discharge Planning Placement may become somewhat problematic with this lady she was refuse from her prior placement Request HC Surrog/Guard Advoc?: Yes Dinh Abbott MD Apr 30, 2017 14:42
[2017-04-30] MEDS: ACETAMINOPHEN 325 MG TAB PO PRN ×2 (15:11→20:11)
[2017-04-30 17:14] VITALS: BP 98/55; PULSE 76; RESP 16; TEMP 97.8; O2SAT 97
[2017-04-30] MEDS: ATENOLOL 25 MG TAB PO SCH (20:11)
[2017-05-01 05:45] VITALS: BP 99/50; PULSE 68; RESP 15; TEMP 97.7; O2SAT 95
[2017-05-01] MEDS: CEPHALEXIN MONOHYDRATE 500 MG CAP PO SCH ×3 (06:00→22:00)
[2017-05-01] MEDS: LEVOTHYROXINE SODIUM 75 MCG TAB PO SCH (06:00)
[2017-05-01] MEDS: QUEtiapine FUMARATE 25 MG TAB PO SCH ×3 (08:03→17:15)
[2017-05-01] MEDS: VENLAFAXINE HCL XR 75 MG CAP PO SCH (08:03)
--- NOTE | 2017-05-01 09:41 | HHI.PR ---
Subjective Remarks Follow up renal insufficiency, lower extremity swelling/erythema. Patient states that her left leg feels "heavy". Denies chest pain, dyspnea, leg pain, nausea. Objective Vitals Vital Signs Date Time Temp Pulse Resp B/P (MAP) Pulse Ox O2 Delivery O2 Flow Rate FiO2 05/01/17 05:45 97.7 68 15 99/50 (66) 95 04/30/17 17:14 97.8 76 16 98/55 (69) 97 I/O 04/30/17 04/30/17 04/30/17 05/01/17 05/01/17 05/01/17 07:00 15:00 23:00 07:00 15:00 23:00 Intake Total 240 ml 240 ml 120 ml 480 ml Balance 240 ml 240 ml 120 ml 480 ml Intake Oral 240 ml 240 ml 120 ml 480 ml # Voids 2 4 Result Diagram: 04/30/17 1054 04/30/17 1054 Imaging Last Impressions Cervical Spine X-Ray 04/27/17 0000 Signed Impressions: Service Date/Time: Thursday, April 27, 2017 22:59 - CONCLUSION: Grade 1 anterolisthesis at C2/C3, mostly with flexion. No other abnormal alignment/motion. Dinh Bustillos MD Objective Remarks General: Elderly female in no acute distress. Heart: Regular rate and rhythm. No murmur. Lungs: Clear to auscultation bilaterally. No wheezes, rales, or rhonchi. Breathing is nonlabored. Abdomen: Soft, nontender, nondistended. Extremities: 2+ bilateral lower extremity edema with erythema. There are open wounds that are draining serous fluid. Psych: Alert and oriented. Procedures None Urinary Catheter: No Vascular Central Line Catheter: No A/P Assessment and Plan 1. Dementia with behavioral disturbance: Management per psychiatry. 2. C1 fracture: Appreciate neurosurgery recommendations. Patient cleared by neurosurgery to be out of [facility]. 3. Hypertension: Blood pressure improved today. She had been hypotensive. Continue atenolol. Lasix, spironolactone, lisinopril on hold. 4. CHF: Diuretics, GUMARO inhibitor on hold secondary to hypotension. 5. Venous stasis dermatitis: Patient is being treated with Keflex to cover possible cellulitis. Continue wound care. 6. Hypothyroidism: Continue Synthroid. 7. Acute kidney injury: Creatinine was elevated yesterday. Labs are pending today. 8. DVT prophylaxis: Ambulation. Discharge Planning Difficult placement. Damian Morgan MD May 01, 2017 09:41
--- NOTE | 2017-05-01 14:10 | HHI.PYPN ---
Subjective Chief Complaint: patient went with increased agitation noncompliance with nurse her recommen Remarks Patient seen in her room with floor staff, patient calm pleasant diffusely confused no complaints of any significant neck pain. He should compliant with the medication Review of Systems Except as stated in HPI: all other systems reviewed are Neg Mental Status Examination Appearance: Appropriate Consciousness: Alert Orientation: Person Motor Activity: Other (patient in Radha chair will have PT assess need to be considered high fall risk) Speech: Unremarkable Language: Adequate Fund of Knowledge: Poor Attention and Concentration: Other (poor) Memory: Impaired Mood: Appropriate, Irritable (at times) Affect: Other (good range intensity) Thought Process & Associations: Other (poverty of thought) Thought Content: Delusional (bizarre delusions) Hallucination Type: None Suicidal Ideation: No Suicidal Plan: No Suicidal Intention: No Homicidal Ideation: No Homicidal Plan: No Homicidal Intention: No Insight: Poor Judgment: Poor Results Vitals/IOs Vital Signs Date Time Temp Pulse Resp B/P (MAP) Pulse Ox O2 Delivery O2 Flow Rate FiO2 05/01/17 05:45 97.7 68 15 99/50 (66) 95 Intake and Output 05/01/17 05/01/17 05/02/17 08:00 16:00 00:00 Intake Total 240 ml 840 ml Balance 240 ml 840 ml Assessment & Plan Problem List: (1) C1 cervical fracture ICD Codes: S12.000A - Unspecified displaced fracture of first cervical vertebra , initial encounter for closed fracture (2) DEMENTIA IN OTH DISEASES CLASSD ELSWHR W BEHAVIORAL DISTURB ICD Codes: F02.81 - DEMENTIA IN OTH DISEASES CLASSD ELSWHR W BEHAVIORAL DISTURB (3) ALZHEIMER'S DISEASE WITH LATE ONSET ICD Codes: G30.1 - ALZHEIMER'S DISEASE WITH LATE ONSET Assessment & Plan Estimated LOS: days patient continues confused Amenta the low behavioral problems. It appears is been no significant issues related to her cervical injury. Patient scheduled for [place] tomorrow Justification for Cont. Inpt. At this time patient decompensate if not placed in an appropriate level of care Discharge Planning Counselors continue to work on finding appropriate placement Request HC Surrog/Guard Advoc?: Yes Dinh Abbott MD May 01, 2017 14:10
[2017-05-01 14:52] LABS: AUTOMATED NEUTROPHIL # 8.8 TH/MM3 (1.8-7.7); BASOPHIL # 0.1 TH/MM3 (0-0.2); BASOPHIL % 0.4 % (0.0-2.0); EOSINOPHIL # 0.5 TH/MM3 (0-0.4); EOSINOPHIL % 1.4 % (0.0-4.0); HEMATOCRIT 33.3 % (35.0-46.0); HEMOGLOBIN 10.7 GM/DL (11.6-15.3); LYMPH % 69.7 % (9.0-44.0); LYMPHOCYTE # 23.5 TH/MM3 (1.0-4.8); MEAN CORPUSCULAR HEMOGLOBIN 27.7 PG (27.0-34.0); MEAN CORPUSCULAR HGB CONC 32.2 % (32.0-36.0); MEAN PLATELET VOLUME 9.9 FL (7.0-11.0); MONO % 2.3 % (0.0-8.0); MONOCYTE # 0.8 TH/MM3 (0-0.9); NEUT % 26.2 % (16.0-70.0); PLATELET COUNT 343 TH/MM3 (150-450); RED BLOOD COUNT 3.87 MIL/MM3 (4.00-5.30); RED CELL DISTRIBUTION WIDTH 14.3 % (11.6-17.2); WHITE BLOOD COUNT 33.6 TH/MM3 (4.0-11.0)
[2017-05-01 15:12] LABS: BICARBONATE 27.6 MEQ/L (21.0-32.0); CALCIUM 8.4 MG/DL (8.5-10.1); CREATININE 0.77 MG/DL (0.50-1.00)
[2017-05-01 15:36] LABS: OVALOCYTES 1+ (NORMAL); SMUDGE CELLS PRESENT PRESENT
[2017-05-01 18:41] VITALS: BP 94/50; PULSE 88; RESP 16; TEMP 98.3; O2SAT 95
[2017-05-01] MEDS: ATENOLOL 25 MG TAB PO SCH (21:00)
[2017-05-02 05:36] VITALS: BP 110/75; PULSE 77; RESP 16; TEMP 98.6; O2SAT 94
[2017-05-02] MEDS: LEVOTHYROXINE SODIUM 75 MCG TAB PO SCH (06:11)
[2017-05-02] MEDS: CEPHALEXIN MONOHYDRATE 500 MG CAP PO SCH ×3 (06:11→20:37)
[2017-05-02] MEDS: QUEtiapine FUMARATE 25 MG TAB PO SCH ×3 (08:31→18:00)
[2017-05-02] MEDS: VENLAFAXINE HCL XR 75 MG CAP PO SCH (08:31)
[2017-05-02 11:40] LABS: BASOPHIL # 0.1 TH/MM3 (0-0.2); BASOPHIL % 0.4 % (0.0-2.0); EOSINOPHIL # 0.4 TH/MM3 (0-0.4); EOSINOPHIL % 1.3 % (0.0-4.0); HEMOGLOBIN 9.9 GM/DL (11.6-15.3); LYMPH % 67.1 % (9.0-44.0); MEAN CELL VOLUME 86.1 FL (80.0-100.0); MEAN CORPUSCULAR HEMOGLOBIN 27.5 PG (27.0-34.0); MEAN PLATELET VOLUME 9.1 FL (7.0-11.0); MONO % 3.9 % (0.0-8.0); MONOCYTE # 1.3 TH/MM3 (0-0.9); NEUT % 27.3 % (16.0-70.0); PLATELET COUNT 333 TH/MM3 (150-450); RED CELL DISTRIBUTION WIDTH 14.5 % (11.6-17.2); WHITE BLOOD COUNT 32.8 TH/MM3 (4.0-11.0)
[2017-05-02 12:21] LABS: BICARBONATE 30.3 MEQ/L (21.0-32.0); CALCIUM 7.9 MG/DL (8.5-10.1); CREATININE 0.78 MG/DL (0.50-1.00)
--- NOTE | 2017-05-02 13:15 | HHI.PYPN ---
Subjective Chief Complaint: patient went with increased agitation noncompliance with nurse her recommen Remarks Patient seen in her room with RN and medical student christie. Chart reviewed. Patient compliant medication. Patient calm pleasantly confused complaining of any significant pain in her neck. Staff states she is overall, cooperative though at times been low resistant to her hands on care and assistance. Continue to work on placement issues Review of Systems Except as stated in HPI: all other systems reviewed are Neg Mental Status Examination Appearance: Appropriate Consciousness: Alert Orientation: Person Motor Activity: Other (patient in Radha chair will have PT assess need to be considered high fall risk) Speech: Unremarkable Language: Adequate Fund of Knowledge: Poor Attention and Concentration: Other (poor) Memory: Impaired Mood: Appropriate, Irritable (at times) Affect: Other (good range intensity) Thought Process & Associations: Other (poverty of thought) Thought Content: Delusional (bizarre delusions) Hallucination Type: None Suicidal Ideation: No Suicidal Plan: No Suicidal Intention: No Homicidal Ideation: No Homicidal Plan: No Homicidal Intention: No Insight: Poor Judgment: Poor Results Labs Test 05/02/17 10:55 White Blood Count 32.8 TH/MM3 Red Blood Count 3.60 MIL/MM3 Hemoglobin 9.9 GM/DL Hematocrit 31.0 % Mean Corpuscular Volume 86.1 FL Mean Corpuscular Hemoglobin 27.5 PG Mean Corpuscular Hemoglobin Concent 32.0 % Red Cell Distribution Width 14.5 % Platelet Count 333 TH/MM3 Mean Platelet Volume 9.1 FL Neutrophils (%) (Auto) 27.3 % Lymphocytes (%) (Auto) 67.1 % Monocytes (%) (Auto) 3.9 % Eosinophils (%) (Auto) 1.3 % Basophils (%) (Auto) 0.4 % Neutrophils # (Auto) 9.0 TH/MM3 Lymphocytes # (Auto) 22.0 TH/MM3 Monocytes # (Auto) 1.3 TH/MM3 Eosinophils # (Auto) 0.4 TH/MM3 Basophils # (Auto) 0.1 TH/MM3 CBC Comment AUTO DIFF Blood Urea Nitrogen 25 MG/DL Creatinine 0.78 MG/DL Random Glucose 83 MG/DL Calcium Level 7.9 MG/DL Sodium Level 140 MEQ/L Potassium Level 4.2 MEQ/L Chloride Level 102 MEQ/L Carbon Dioxide Level 30.3 MEQ/L Anion Gap 8 MEQ/L Estimat Glomerular Filtration Rate 70 ML/MIN Vitals/IOs Vital Signs Date Time Temp Pulse Resp B/P (MAP) Pulse Ox O2 Delivery O2 Flow Rate FiO2 05/02/17 05:36 98.6 77 16 110/75 (87) 94 Intake and Output 05/02/17 05/02/17 05/03/17 08:00 16:00 00:00 Intake Total 0 ml 600 ml Balance 0 ml 600 ml Assessment & Plan Problem List: (1) C1 cervical fracture ICD Codes: S12.000A - Unspecified displaced fracture of first cervical vertebra , initial encounter for closed fracture (2) DEMENTIA IN OTH DISEASES CLASSD ELSWHR W BEHAVIORAL DISTURB ICD Codes: F02.81 - DEMENTIA IN OTH DISEASES CLASSD ELSWHR W BEHAVIORAL DISTURB (3) ALZHEIMER'S DISEASE WITH LATE ONSET ICD Codes: G30.1 - ALZHEIMER'S DISEASE WITH LATE ONSET Assessment & Plan Estimated LOS: days patient continues confused and demented, though no significant behavioral problems, she is pleasant with me. Compliant medication. Justification for Cont. Inpt. At this time patient decompensate and placed in a lower level of care Discharge Planning Continue to work on placement issues Request HC Surrog/Guard Advoc?: Yes Dinh Abbott MD May 02, 2017 13:15
[2017-05-02 14:03] LABS: BASOPHILS 1 % (0-2); MONOCYTES 5 % (0-8); NEUTROPHIL # MANUAL DIFF 8.9 TH/MM3 (1.8-7.7); POLYS (SEG NEUTROPHILS) 27 % (16-70)
[2017-05-02 14:04] LABS: LYMPHOCYTES 65 % (9-44); OVALOCYTES 1+ (NORMAL); SMUDGE CELLS PRESENT PRESENT
--- NOTE | 2017-05-02 17:27 | HHI.PR ---
Subjective Remarks Follow up visit for HTN, bilateral lower leg edema, C1 fracture, and CHF. Patient was seen and examined today up to recliner chair. States that she is tired and would like to take a nap. Confuse but able to follow some commands. Denies pain and discomfort. Denies SOB/ dyspnea. Denies chest pain, palpitations, headaches, dizziness. Denies fevers, nausea, vomiting, reports moving bowls earlier today. Objective Vitals Vital Signs Date Time Temp Pulse Resp B/P (MAP) Pulse Ox O2 Delivery O2 Flow Rate FiO2 05/02/17 05:36 98.6 77 16 110/75 (87) 94 05/01/17 18:41 98.3 88 16 94/50 (65) 95 I/O 05/01/17 05/01/17 05/01/17 05/02/17 05/02/17 05/02/17 07:00 15:00 23:00 07:00 15:00 23:00 Intake Total 480 ml 840 ml 240 ml 0 ml 840 ml Balance 480 ml 840 ml 240 ml 0 ml 840 ml Intake Oral 480 ml 840 ml 240 ml 0 ml 840 ml # Voids 4 3 2 Result Diagram: 05/02/17 1055 05/02/17 1055 Imaging Last Impressions Cervical Spine X-Ray 04/27/17 0000 Signed Impressions: Service Date/Time: Thursday, April 27, 2017 22:59 - CONCLUSION: Grade 1 anterolisthesis at C2/C3, mostly with flexion. No other abnormal alignment/motion. Dinh Bustillos MD Objective Remarks GENERAL: This is a well-nourished, well-developed patient, pleasant in no acute distress. SKIN: Erythematous changes of the lower extremity resemble stasis, +1 pedal edema, left ankle with gauze and Jeanette wrap for serous weeping. HEAD: Atraumatic. Normocephalic. EYES: Pupils equal round and reactive. Extraocular motions intact. NECK: Trachea midline supple. CARDIOVASCULAR: RRR without murmurs, gallops, or rubs. RESPIRATORY: Clear to auscultation in all singer. No wheezes, rales, or rhonchi. GASTROINTESTINAL: Abdomen soft, non-tender, nondistended. MUSCULOSKELETAL: Extremities without clubbing, cyanosis, or edema. PSYCH: Alert and oriented to self and place but still confused. Procedures None A/P Assessment and Plan 86-year-old female who originally admitted to [facility] surgical services on for fracture of C1 after falling at assisted. She was seen and evaluated by neurosurgery who advised [place] collar. She experienced agitation partly due to dementia and was evaluated by psychiatric services. Medical consult was requested for management of lower leg edema, HTN, and hypothyroidism. HTN, chronic -Lisinopril on hold due to low BP CHF, chronic no acute exacerbation - +1 edema of bilateral legs - lung sounds clear, breathing nonlabored - Diuretics on hold due to low BP, may consider resuming Lower leg edema, acute - Possibly secondary to venous stasis - + weeping has treatment with Keflex empirically for possible cellulitis. - Encouraged patient to elevate legs, may also benefit from FRANKI stockings. - Will restart Lasix and Aldactone with holding parameters. ERIC, acute - Creatinine and BUN continue to improve. HLD -Total cholesterol 223, LDL 142, HDL 48.3 - 10-year ASCVD risk over 79, on Gemfibrozil at home Dementia with behavioral disturbance, acute - Being followed by psychiatry services on Seroquel. - Calm and cooperative. C1 fracture, acute - Seen and evaluated by Neurosurgery advised [place] collar, however patient unable to tolerate, no plans for surgical intervention. - Cleared by neurosurgery for discharge to SNF. Rachel Bender May 02, 2017 17:27
[2017-05-02] MEDS: ACETAMINOPHEN 325 MG TAB PO PRN (19:37)
[2017-05-02] MEDS: ATENOLOL 25 MG TAB PO SCH (20:17)
[2017-05-02 20:27] VITALS: BP 98/53; PULSE 82; RESP 18; TEMP 97.8; O2SAT 94
[2017-05-03] MEDS: CEPHALEXIN MONOHYDRATE 500 MG CAP PO SCH (06:00)
[2017-05-03 06:07] VITALS: BP 117/63; PULSE 68; RESP 16; TEMP 98; O2SAT 96
[2017-05-03] MEDS: LEVOTHYROXINE SODIUM 75 MCG TAB PO SCH (06:07)
[2017-05-03] MEDS: VENLAFAXINE HCL XR 75 MG CAP PO SCH (09:12)
[2017-05-03] MEDS: QUEtiapine FUMARATE 25 MG TAB PO SCH ×2 (09:12→13:00)
[2017-05-03] MEDS ORDERED: SERO25TA PO (10:33)
[2017-05-03] MEDS ORDERED: FURO40TA PO (10:33)
[2017-05-03] MEDS ORDERED: LISI-519 PO (10:33)
[2017-05-03] MEDS ORDERED: LEVO.075 PO (10:33)
[2017-05-03] MEDS ORDERED: SPIR25 PO (10:33)
[2017-05-03] MEDS ORDERED: VENL75XR PO (10:33)
[2017-05-03] MEDS ORDERED: ATEN25TA PO (10:33)
[2017-05-03] MEDS ORDERED: CEPH500C PO (10:33)
--- NOTE | 2017-05-03 10:40 | HHI.DS ---
Psychiatry Discharge Summary Inpatient Psychiatric care?: Yes Advance Directive: No Mental Health AdvanceDirective: No Health Care Proxy: No Admission Admission Date Apr 25, 2017 at 16:11 Admission Diagnosis: (1) DEMENTIA IN OTH DISEASES CLASSD ELSWHR W BEHAVIORAL DISTURB ICD Code: F02.81 - DEMENTIA IN OTH DISEASES CLASSD ELSWHR W BEHAVIORAL DISTURB (2) ALZHEIMER'S DISEASE WITH LATE ONSET ICD Code: G30.1 - ALZHEIMER'S DISEASE WITH LATE ONSET Brief History Patient is 86-year-old white female was initially admitted to surgical service at [facility] on 04/22/17 under she sustained a witnessed fall at her correction causing a fracture of C1, was consulted with neurosurgery recommended a [place] collar and follow-up. Attempts to place the Lamictal her left the patient's significant resistance agitation and fighting of the collar the point where she was placed in restraints, and a psychiatric consultation was requested. Patient is seen on 04/[address] Davison recommended scheduled Seroquel. Patient is brought to that unit at that admission on a voluntary basis. It appears there is no [place] act initiated at that time. Patient was transferred to the psychiatric unit for further care and assessment. Upon my assessment, patient being seen also with nurse Erica, patient is still severely demented appointed only to self, and is my opinion the patient does not have the capacity to sign voluntarily for admission. Thus I will do first opinion petition supporting [place]ion act, requesting a second opinion petition, I feel she does not have capacity we'll thus ask for healthcare surrogate and a guardian advocate. Counselor is in contact with patient's daughter related to this. We will also have hospitals consult with us. Will have a neurosurgery consult less. Patient is short statured with a short neck quite adamant in her dementia about refusing the large bulky collar. I need to find out if neurosurgery as an alternative that the patient may tolerate. Will also discontinue benzodiazepines with this lady, and Seroquel 25 mg twice a day. Patient seen today in her Radha chair in the day room with counselor Santa. Patient is alert oriented to self only but pleasantly feisty with me has no memory of falling complains of some diffuse headache and pain towards the back of her neck. She is moving all 4 extremities without difficulty. She denies any prior psychiatric hospitalization or contact her medication. Though she is on Effexor at the present time. She denies suicidality at this time denies voices. She gives confusing stories about her marriage with her is alive or and numb and children she has. It appears she has a lease 2 daughters out of state. In any event at the present time patient does meet criteria for inpatient psychiatric hospitalization I will do orders as mentioned above. We also need to clarify with the medical/surgical treatment team's recommendations were on the medical admit. We need to coordinate those with us Tobacco Use In Past 30 Days: Cognitive Impairment Alcohol Use: Never (cognitively impaired) Hospital Course Patient's hospital course was overall is ago for her initial stay with us in a marked irritability and reaction to the attempts to place a large rigid [place] cervical collar in this lady with a short stocky neck. We did reconsult with nurse surgery determined that that type of collar was unnecessary medication observe the patient. Patient's cognitive disability and dementia presented itself throughout the stay though she is otherwise calm pleasant with no significant behavioral problems. She has been compliant with her medications. Is a bed available today [facility] Patient is willing to go there. Family is willing also. Thus patient will be discharged today to that facility with Rx 1 month to follow-up mental health and medical services through that facility Results Blood Pressure 117 / 63 Vital Signs Date Time Temp Pulse Resp B/P (MAP) Pulse Ox O2 Delivery O2 Flow Rate FiO2 05/03/17 06:07 98.0 68 16 117/63 (81) 96 Laboratory Tests Test 04/30/17 10:54 05/01/17 13:00 05/02/17 10:55 White Blood Count 33.5 TH/MM3 (4.0-11.0) 33.6 TH/MM3 (4.0-11.0) 32.8 TH/MM3 (4.0-11.0) Red Blood Count 3.87 MIL/MM3 (4.00-5.30) 3.87 MIL/MM3 (4.00-5.30) 3.60 MIL/MM3 (4.00-5.30) Hemoglobin 10.7 GM/DL (11.6-15.3) 10.7 GM/DL (11.6-15.3) 9.9 GM/DL (11.6-15.3) Hematocrit 33.4 % (35.0-46.0) 33.3 % (35.0-46.0) 31.0 % (35.0-46.0) Lymphocytes (%) (Auto) 67.7 % (9.0-44.0) 69.7 % (9.0-44.0) 67.1 % (9.0-44.0) Neutrophils # (Auto) 9.1 TH/MM3 (1.8-7.7) 8.8 TH/MM3 (1.8-7.7) 9.0 TH/MM3 (1.8-7.7) Lymphocytes # (Auto) 22.6 TH/MM3 (1.0-4.8) 23.5 TH/MM3 (1.0-4.8) 22.0 TH/MM3 (1.0-4.8) Monocytes # (Auto) 1.1 TH/MM3 (0-0.9) 1.3 TH/MM3 (0-0.9) Lymphocytes % 63 % (9-44) 65 % (9-44) Neutrophils # (Manual) 10.4 TH/MM3 (1.8-7.7) 8.9 TH/MM3 (1.8-7.7) Blood Urea Nitrogen 39 MG/DL (7-18) 30 MG/DL (7-18) 25 MG/DL (7-18) Estimat Glomerular Filtration Rate 62 ML/MIN (>89) 71 ML/MIN (>89) 70 ML/MIN (>89) Eosinophils # (Auto) 0.5 TH/MM3 (0-0.4) Platelet Morphology Comment ENLARGED (NORMAL) Ovalocytes 1+ (NORMAL) 1+ (NORMAL) Random Glucose 135 MG/DL (74-106) Calcium Level 8.4 MG/DL (8.5-10.1) 7.9 MG/DL (8.5-10.1) Laboratory Results Test 04/26/17 08:59 Cholesterol Level 223 MG/DL (120-200) HDL Cholesterol 48.3 MG/DL (40.0-60.0) Hemoglobin A1c 5.7 % (4.3-6.0) LDL Cholesterol 142 MG/DL (0-99) Triglycerides Level 163 MG/DL (42-150) Summary of Procedures None done Imaging Last Impressions Cervical Spine X-Ray 04/27/17 0000 Signed Impressions: Service Date/Time: Thursday, April 27, 2017 22:59 - CONCLUSION: Grade 1 anterolisthesis at C2/C3, mostly with flexion. No other abnormal alignment/motion. Dinh Bustillos MD Pending results at discharge: No Medications # of Antipsychotic meds at D/C: 1 Approp Antipsych med options 1 - Minimum of three failed multiple trials of monotherapy. 2 - Documented plan to taper to monotherapy due to previous use of multiple meds OR cross-taper in progress at D/C. 3 - Documentation of augmentation of Clozapine. 4 - Justification other than those listed in allowable values 1-3, document here : Discharge Discharge Date: May 03, 2017 Discharge Diagnosis: (1) DEMENTIA IN OTH DISEASES CLASSD ELSWHR W BEHAVIORAL DISTURB Diagnosis: Principal ICD Code: F02.81 - DEMENTIA IN OTH DISEASES CLASSD ELSWHR W BEHAVIORAL DISTURB (2) ALZHEIMER'S DISEASE WITH LATE ONSET Diagnosis: Principal (follow-up mental health services medical services and neurosurgical follow-up through that facility) ICD Code: G30.1 - ALZHEIMER'S DISEASE WITH LATE ONSET Pt Condition on Discharge: Stable Discharge Disposition: Rehab Inpatient Discharge Instructions Diet Instructions: As Tolerated, No Restrictions Activities you can perform: Regular-No Restrictions Scheduled Appointment: [facility] Discharge Time > 30 minutes Mental Status Examination Appearance: Appropriate Consciousness: Alert Orientation: Person Motor Activity: Other (patient in Radha chair will have PT assess need to be considered high fall risk) Speech: Unremarkable Language: Adequate Fund of Knowledge: Poor Attention and Concentration: Other (poor) Memory: Impaired Mood: Appropriate, Irritable (at times) Affect: Other (good range intensity) Thought Process & Associations: Other (poverty of thought) Thought Content: Delusional (bizarre delusions) Hallucination Type: None Suicidal Ideation: No Suicidal Plan: No Suicidal Intention: No Homicidal Ideation: No Homicidal Plan: No Homicidal Intention: No Insight: Poor Judgment: Poor Discharge/Advance Care Plan Health Problems: (1) C1 cervical fracture (2) DEMENTIA IN OTH DISEASES CLASSD ELSWHR W BEHAVIORAL DISTURB (3) ALZHEIMER'S DISEASE WITH LATE ONSET Goals to promote your health * To prevent worsening of your condition and complications * To maintain your health at the optimal level Directions to meet your goals Take your medications as prescribed Follow your dietary instruction Follow activity as directed Keep your appointments as scheduled Take your immunizations and boosters as scheduled If your symptoms worsen call your PCP, if no PCP go to Urgent Care Center or Emergency Room For 21/01 questions related to your inpatient stay or results of tests pending at discharge, please contact Dr. Dinh Abbott at Smoking is Dangerous to Your Health. Avoid second hand smoking Dinh Abbott MD May 03, 2017 10:40
== END 2017-05-03 13:20 | DRG 57 ==
LOC: H250 16:11 → H4EA 04-29 17:17
PROVIDERS: ADMIT Psychiatry & Neurology Psychiatry; ATTEND Psychiatry & Neurology Psychiatry
DX: G30.1 Alzheimer's disease with late onset (principal); S12.090A Other displaced fracture of first cervical vertebra, initial encounter for closed fracture; N17.9 Acute kidney failure, unspecified; I11.0 Hypertensive heart disease with heart failure; I50.9 Heart failure, unspecified; F02.81 Dementia in other diseases classified elsewhere, unspecified severity, with behavioral disturbance; L03.119 Cellulitis of unspecified part of limb; Z91.19 Patient's noncompliance with other medical treatment and regimen; E03.9 Hypothyroidism, unspecified; E78.5 Hyperlipidemia, unspecified; I87.2 Venous insufficiency (chronic) (peripheral); W19.XXXA Unspecified fall, initial encounter; Y92.129 Unspecified place in nursing home as the place of occurrence of the external cause
CPT/HCPCS: 72040; 80048; 80061; 83036; 85007; 85025; 85027